=== PATIENT | male | born 1965 | race Caucasian/White ===

== ENCOUNTER 2016-09-07 16:18 | Emergency (ER) | payer MEDICAID ==
[~2016-09-07] VITALS: Ht 185.4 cm; Wt 113.5 kg
[2016-09-07 16:21] VITALS: BP 123/79; PULSE 96; RESP 20; TEMP 97.5; O2SAT 94
[2016-09-07 17:45] LABS: AUTOMATED NEUTROPHIL # 13.1 TH/MM3 (1.8-7.7); BASOPHIL # 0.1 TH/MM3 (0-0.2); BASOPHIL % 0.3 % (0.0-2.0); EOSINOPHIL % 0.1 % (0.0-4.0); HEMO FLAGS DIFF FINAL; LYMPH % 9.9 % (9.0-44.0); LYMPHOCYTE # 1.5 TH/MM3 (1.0-4.8); MEAN CELL VOLUME 87.4 FL (80.0-100.0); MEAN CORPUSCULAR HEMOGLOBIN 30.4 PG (27.0-34.0); MEAN CORPUSCULAR HGB CONC 34.8 % (32.0-36.0); MONO % 5.3 % (0.0-8.0); NEUT % 84.4 % (16.0-70.0); PLATELET COUNT 220 TH/MM3 (150-450); RED BLOOD COUNT 5.37 MIL/MM3 (4.50-5.90); RED CELL DISTRIBUTION WIDTH 13.1 % (11.6-17.2); WHITE BLOOD COUNT 15.6 TH/MM3 (4.0-11.0)
[2016-09-07 17:59] VITALS: BP 151/66; PULSE 81; RESP 18; TEMP 97.8; O2SAT 98
[2016-09-07 18:24] LABS: AMPHETAMINE, URINE NEG (NEG); BARBITURATES, URINE NEG (NEG); COCAINE, URINE POS (NEG)
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
[2016-09-07 18:29] LABS: ANION GAP 9 MEQ/L (5-15); AST (GOT) 30 U/L (15-37); BICARBONATE 30.3 MEQ/L (21.0-32.0); BLOOD UREA NITROGEN 20 MG/DL (7-18); CHLORIDE 101 MEQ/L (98-107); GLOMERULAR FILTRATION RATE 46 ML/MIN (>89); POTASSIUM 4.5 MEQ/L (3.5-5.1); SODIUM (NA) 140 MEQ/L (136-145)
[2016-09-07 18:32] LABS: ALKALINE PHOSPHATASE 96 U/L (45-117); ALT (GPT) 44 U/L (12-78); TOTAL BILIRUBIN ADULT 1.4 MG/DL (0.2-1.0)
[2016-09-07] MEDS ORDERED: SODIUM CHLOR 0.9% 1000 ML INJ 1,000 ML IV SCH (18:45)
--- NOTE | 2016-09-07 18:46 | RADRPT ---
EXAM DATE/TIME: 09/07/2016 18:15 [facility] COMPARISON: No previous studies available for comparison. INDICATIONS : Possible infection of the left lower extremity. MEDICAL HISTORY : None. SURGICAL HISTORY : ORIF Left Tibia ENCOUNTER: Initial ACUITY: 1 day PAIN SCORE: 4/10 LOCATION: Left leg FINDINGS: We have no prior exams. There is a intramedullary ramírez the distal tibia extending across the ankle yoan nt secured to the calcaneus with solid bony fusion of the ankle joint and the distal tibiofibular yoan nt. The proximal tibia is notable for complex bony deformity which has an appearance suggestive of ri ght fracture potentially complicated by infection or other impaired healing process. Multiple surgica l clips and campbell are present. Lobular irregularities of the overlying soft tissue structures may r eflect previous tissue flaps or the reconstructive-type procedures. There is prominent callus adjacen t to the femoral condyles both medially and laterally as well as ossification posteriorly, all likely manifestations of previous injury and dystrophic healing. Resolving to specifically suggest an acute process. I see no periosteal reaction, cortical destruction or acute-appearing fracture. CONCLUSION: No definite acute process. We have no comparison exams. See above discussion. Jake Garza MD on September 07, 2016 at 18:41 Board Certified Radiologist. This report was verified electronically.
[2016-09-07] MEDS ORDERED: CEPH-460 PO (19:18)
[2016-09-07] MEDS ORDERED: BACT800T5 PO (19:18)
[2016-09-07 20:33] VITALS: BP 128/75; PULSE 67; RESP 19; TEMP 99; O2SAT 95
[2016-09-07 21:45] VITALS: BP 115/70; PULSE 63; RESP 18; TEMP 97.6; O2SAT 96
[2016-09-08 03:18] VITALS: BP_SYST 115; BP_SYST 138; BP_DIAS 70; BP_DIAS 84; PULSE 63; PULSE 65; RESP 18; O2SAT 96
[2016-09-08 06:35] VITALS: BP 129/79; PULSE 59; RESP 18; TEMP 97.4; O2SAT 97
[2016-09-08 10:27] VITALS: BP 105/55; PULSE 60; RESP 18; O2SAT 97
[2016-09-08 14:15] VITALS: BP 104/62; PULSE 50; RESP 16; O2SAT 96
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
[2016-09-08 18:20] VITALS: BP 122/73; PULSE 53; RESP 16; O2SAT 96
[2016-09-08 22:18] VITALS: BP 106/59; PULSE 54; RESP 18; O2SAT 99
[2016-09-09 02:30] VITALS: BP 126/80; PULSE 53; RESP 18; O2SAT 97
== END 2016-09-09 04:52 ==
LOC: NEPE 16:18 → NEPJ 09-09 04:52
DX: F43.20 Adjustment disorder, unspecified (principal); F14.10 Cocaine abuse, uncomplicated; R45.851 Suicidal ideations; F39 Unspecified mood [affective] disorder; S89.92XS Unspecified injury of left lower leg, sequela; Z59.0 Homelessness; V09.9XXS Pedestrian injured in unspecified transport accident, sequela
CPT/HCPCS: 73590; 80053; 80307; 85025; 85652; 86140; 96360; 99285; J7030

== ENCOUNTER 2016-10-29 13:36 | Emergency (ER) | payer MEDICAID, OTHER ==
[~2016-10-29 13:36] MED LIST: BACT800T5 PO; CEPH-460 PO
[2016-10-29 13:40] VITALS: BP 133/85; PULSE 104; RESP 16; TEMP 97.9; O2SAT 96
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
--- NOTE | 2016-10-29 14:45 | RADRPT ---
EXAM DATE/TIME: 10/29/2016 14:31 [facility] COMPARISON: TIBIA/FIBULA LEFT (AP/LAT), September 07, 2016, 18:15. INDICATIONS : Patient rolled his ankle this morning. MEDICAL HISTORY : None. SURGICAL HISTORY : Ankle surgery. ENCOUNTER: Initial ACUITY: 1 day PAIN SCORE: 9/10 LOCATION: Left Ankle. FINDINGS: The exam demonstrates previous fusion of the left ankle. The hardware appears intact. No acute fractu re is seen. CONCLUSION: 1. Previous left ankle fusion. Fusion appears solid. There is intramedullary ramírez in place. No acute f racture seen. Grayson Rubin MD on October 29, 2016 at 14:43 Board Certified Radiologist. This report was verified electronically.
[2016-10-29] MEDS ORDERED: IBUP800T23 PO (14:57)
[2016-10-29] MEDS ORDERED: KETOROLAC TROMETHAMINE 60 MG/2 ML (IM) VIAL IM ONE (15:00)
== END 2016-10-29 16:22 | disposition home or self-care (01) ==
LOC: NEPB 13:36
DX: S93.402A Sprain of unspecified ligament of left ankle, initial encounter (principal); X50.1XXA Overexertion from prolonged static or awkward postures, initial encounter
CPT/HCPCS: 73610; 96372; 99283; J1885; L1906

== ENCOUNTER 2016-11-14 09:14 | Emergency (ER) | payer OTHER ==
[~2016-11-14] VITALS: Ht 185.4 cm; Wt 102.0 kg
[~2016-11-14 09:14] MED LIST changes: -BACT800T5 PO; -CEPH-460 PO; +IBUP800T23 PO
[2016-11-14 09:15] VITALS: BP 157/95; PULSE 79; RESP 18; TEMP 98
[2016-11-14] MEDS ORDERED: LIDOCAINE 1%/EPINEPHrine 1:100,000 SOLN 20 ML VIAL INFIL ONE (10:45)
--- NOTE | 2016-11-14 11:09 | PD ---
HPI Chief Complaint: Fall Time Seen by Provider: 10:33 Travel History International Travel<30 days: No Contact w/Intl Traveler<30days: No Traveled to known affect area: No History of Present Illness HPI Patient is a 51-year-old male presents emergency department after fall with laceration. Patient walks with cane at baseline and has frequent falls due to bad leg. Patient states that he had a mechanical fall, falling and hitting his left head. He did not lose consciousness, denies any headache, nausea or vomiting. Patient is not anticoagulated. He was seen at the [facility] and they noted a laceration that may need repair prompting his ER visit. Patient has since been able to ambulate without difficulty. [facility] Past Medical History Cardiovascular Problems: Yes (ivc 2012) Deep Vein Thrombosis: Yes (2012) Implanted Vascular Access Dvce: Yes (filter) Social History Alcohol Use: No (denies) Tobacco Use: Yes Substance Use: Yes (off since ) Allergies-Medications (Allergen,Severity, Reaction): Coded Allergies: No Known Allergies (Unverified , 10/29/16) Reported Meds & Prescriptions Reported Meds & Active Scripts Active Ibuprofen 800 Mg Tab 800 Mg PO Q6HR PRN Review of Systems Except as stated in HPI: all other systems reviewed are Neg Physical Exam Narrative GENERAL: Well-appearing middle-aged male in no acute distress SKIN: Warm and dry. HEAD: Laceration to parietal left scalp. Normocephalic. EYES: Pupils equal and round. No scleral icterus. No injection or drainage. ENT: No nasal bleeding or discharge. Mucous membranes pink and moist. NECK: Supple without midline tenderness to palpation CARDIOVASCULAR: Regular rate and rhythm. RESPIRATORY: No accessory muscle use. GASTROINTESTINAL: Abdomen soft, non-tender, nondistended MUSCULOSKELETAL: Moves all extremities normally. Normal gait with cane NEUROLOGICAL: Awake and alert. No obvious cranial nerve deficits. Motor grossly within normal limits. Normal speech. PSYCHIATRIC: Appropriate mood and affect; insight and judgment normal. Data Data Last Documented VS Vital Signs Date Time Temp Pulse Resp B/P Pulse Ox O2 Delivery O2 Flow Rate FiO2 11/14/16 09:19 98 Room Air 11/14/16 09:15 98.0 79 18 157/95 Orders Lidocai-Epi 1%-1:100,000 Inj (Xylocaine- (11/14/16 10:45) [facility] Medical Decision Making Medical Screen Exam Complete: Yes Emergency Medical Condition: Yes Medical Record Reviewed: Yes Differential Diagnosis 51-year-old male here with fall and laceration. Differential includes mechanical fall, closed head injury, skull fracture, ICH, scalp laceration. Narrative Course Patient had clear mechanical fall by history. Baseline [place] head CT criteria he does not warrant any imaging. Laceration repaired by [facility] [employer], please see procedure note. Patient discharged home. Diagnosis Primary Impression: Scalp laceration Qualified Code: S01.01XA - Scalp laceration, initial encounter Additional Impression: Fall Qualified Code: W19.XXXA - Fall, initial encounter Referrals: Primary Care Physician 1 week Patient Instructions: General Instructions, Laceration (ED) Additional Instructions: Follow-up with primary care provider and/or return to the emergency department in 7-10 days for staple removal. Med/Other Pt SpecificInfo: No Change to Meds Disposition: 01 DISCHARGE HOME Condition: Stable Nika Denny MD Nov 14, 2016 11:09
--- NOTE | 2016-11-14 11:21 | PD ---
Physical Exam Time Seen by Provider: 11:19 Narrative I repaired the laceration to the parietal left scalp. Data Data Last Documented VS Vital Signs Date Time Temp Pulse Resp B/P Pulse Ox O2 Delivery O2 Flow Rate FiO2 11/14/16 09:19 98 Room Air 11/14/16 09:15 98.0 79 18 157/95 Orders Lidocai-Epi 1%-1:100,000 Inj (Xylocaine- (11/14/16 10:45) MDM Supervised Visit with CHRISTIANA: Yes Narrative Course I repaired the laceration to the parietal left scalp. See my procedure note for laceration repair. Procedures Procedure Narrative LACERATION LOCATION: Parietal Left scalp LENGTH: 2.5 cm NUMBER OF STITCHES/CAMPBELL: 4 campbell REPAIR: The area of the laceration was prepped with Betadine and sterilely draped. The laceration was infiltrated with 1% lidocaine with epinephrine. The wound was copiously irrigated and explored without evidence of foreign body, tendon injury or neurovascular injury. The wound was closed using campbell. This was a single layer repair. A sterile dressing was applied. The patient was advised to keep the dressing clean and dry. Patient tolerated the procedure well. Diagnosis Primary Impression: Scalp laceration Qualified Code: S01.01XA - Scalp laceration, initial encounter Additional Impression: Fall Qualified Code: W19.XXXA - Fall, initial encounter Referrals: Primary Care Physician 1 week Patient Instructions: General Instructions, Laceration (ED) Additional Instruction: Follow-up with primary care provider and/or return to the emergency department in 7-10 days for staple removal. Disposition: 01 DISCHARGE HOME Condition: Stable Niki Godinez Nov 14, 2016 11:21
[2016-11-14 11:47] VITALS: BP 155/89
== END 2016-11-14 12:01 | disposition home or self-care (01) ==
LOC: NEPE 09:14
DX: S01.01XA Laceration without foreign body of scalp, initial encounter (principal); W19.XXXA Unspecified fall, initial encounter; Z72.0 Tobacco use
CPT/HCPCS: 12001

== ENCOUNTER 2017-04-13 08:33 | Inpatient (IN) | payer MEDICAID, OTHER ==
[~2017-04-13] VITALS: Ht 185.4 cm; Wt 103.3 kg
[2017-04-13 08:34] VITALS: BP 139/80; PULSE 86; RESP 18; TEMP 97.7; O2SAT 99
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
[2017-04-13 10:01] LABS: BASOPHIL # 0.1 TH/MM3 (0-0.2); BASOPHIL % 0.7 % (0.0-2.0); EOSINOPHIL # 0.1 TH/MM3 (0-0.4); EOSINOPHIL % 1.5 % (0.0-4.0); HEMATOCRIT 39.2 % (39.0-51.0); HEMO FLAGS DIFF FINAL; LYMPH % 21.6 % (9.0-44.0); LYMPHOCYTE # 1.6 TH/MM3 (1.0-4.8); MEAN CELL VOLUME 91.3 FL (80.0-100.0); MEAN CORPUSCULAR HEMOGLOBIN 31.6 PG (27.0-34.0); MEAN CORPUSCULAR HGB CONC 34.6 % (32.0-36.0); MONO % 9.6 % (0.0-8.0); NEUT % 66.6 % (16.0-70.0); PLATELET COUNT 252 TH/MM3 (150-450); RED CELL DISTRIBUTION WIDTH 13.1 % (11.6-17.2); WHITE BLOOD COUNT 7.5 TH/MM3 (4.0-11.0)
[2017-04-13 10:23] LABS: BICARBONATE 28.6 MEQ/L (21.0-32.0); POTASSIUM 4.3 MEQ/L (3.5-5.1)
--- NOTE | 2017-04-13 10:29 | RADRPT ---
EXAM DATE/TIME: 04/13/2017 10:02 [facility] COMPARISON: TIBIA/FIBULA LEFT (AP/LAT), September 07, 2016, 18:15. INDICATIONS : Left leg pain. Evaluate for osteomyelitis. MEDICAL HISTORY : None. SURGICAL HISTORY : Multiple leg surgeries with ramírez placment. ENCOUNTER: Initial ACUITY: 1 month PAIN SCORE: 9/10 LOCATION: Left leg FINDINGS: 4 views of the left lower leg reveal significant prior trauma to the proximal and distal tibia as wel l as the distal fibula. There is an intramedullary ramírez traversing the tibiotalar joint with 3 distal and 2 proximal anchoring screws. Pronounced myositis ossificans about all fracture sites particularly proximally. No acute fracture is observed. No discrete cortical destruction to suggest osteomyelitis . Multiple surgical clips. CONCLUSION: Pronounced prior trauma with fusion of the tibiotalar and subtalar joints. No plain radiographic evid ence to clearly suggest osteomyelitis. Bull Pang Jr., MD on April 13, 2017 at 10:22 Board Certified Radiologist. This report was verified electronically.
[2017-04-13] MEDS ORDERED: MORPHINE SULFATE 8 MG/ML INJ IV PUSH ONE (11:30)
[2017-04-13 11:58] VITALS: BP 148/79; PULSE 69; RESP 18; O2SAT 99
[2017-04-13] MEDS ORDERED: SENNOSIDES 8.6 MG TAB PO PRN ×2 (13:15→13:45)
[2017-04-13] MEDS ORDERED: BISACODYL 10 MG SUPP RECTAL PRN ×2 (13:15→13:45)
[2017-04-13] MEDS ORDERED: LACTULOSE SYRUP 20 GM/30 ML CUP PO PRN ×2 (13:15→13:45)
[2017-04-13] MEDS ORDERED: NALOXONE HCL 0.4 MG/ML AMP IV PRN ×2 (13:15→13:45)
[2017-04-13] MEDS ORDERED: ONDANSETRON HCL 4 MG/2 ML VIAL IVP PRN ×2 (13:15→13:45)
[2017-04-13] MEDS ORDERED: MORPHINE SULFATE 4 MG/ML INJ IV PUSH PRN (13:15)
[2017-04-13] MEDS ORDERED: MAGNESIUM HYDROXIDE SUSP 30 ML CUP PO PRN ×2 (13:15→13:45)
[2017-04-13] MEDS ORDERED: ACETAMINOPHEN 325 MG TAB PO PRN ×3 (13:15→13:45)
[2017-04-13] MEDS ORDERED: SODIUM CHLORIDE 0.9% FLUSH 10 ML FLUSH IV FLUSH PRN ×2 (13:15→13:45)
[2017-04-13] MEDS ORDERED: ACETAMINOPHEN/HYDROcodone 325 MG/10 MG TAB PO PRN (13:15)
[2017-04-13] MEDS: SODIUM CHLOR 0.9% 1000 ML INJ 1,000 ML IV SCH (13:33)
[2017-04-13] MEDS ORDERED: SODIUM CHLOR 0.9% 1000 ML INJ 1,000 ML IV SCH (13:38)
[2017-04-13] MEDS ORDERED: oxyCODONE/ACETAMINOPHEN 5 MG/325 MG TAB PO PRN (13:45)
[2017-04-13] MEDS ORDERED: MORPHINE SULFATE 4 MG/ML INJ IV PRN (13:45)
[2017-04-13] MEDS ORDERED: TEMAZEPAM 15 MG CAP PO PRN (13:45)
[2017-04-13] MEDS ORDERED: PROCHLORPERAZINE 25 MG SUPP RECTAL PRN (13:45)
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
[2017-04-13 15:45] VITALS: BP 148/101; PULSE 78; RESP 28; O2SAT 100
[2017-04-13] MEDS ORDERED: GADODIAMIDE PF 287 MG/ML 5 ML VIAL (for RAD MRI) IV ONE (15:48)
--- NOTE | 2017-04-13 15:55 | RADRPT ---
EXAM DATE/TIME: 04/13/2017 14:17 [facility] COMPARISON: TIBIA/FIBULA LEFT (AP/LAT), April 13, 2017, 10:02. INDICATIONS : Osteomyelitis. CONTRAST: 10 cc Omniscan (gadodiamide) IV MEDICAL HISTORY : Hypertension. Deep vein thrombosis SURGICAL HISTORY : IVC Filter placement. Left lower leg surgeries ENCOUNTER: Initial ACUITY: 1 month PAIN SCORE: 6/10 LOCATION: Left lower leg TECHNIQUE: Multiplanar multisequence MRI examination of the lower leg was performed with and without contrast. FINDINGS: There is extensive artifact from campbell and hardware. I do not see an obvious abscess. I do not se e significant murmur placement. There is no abnormal contrast enhancement. CONCLUSION: Extensive artifact as described above. Tagged white cell study could be used since t he last myelitis if strong clinical concern. Evan Rubin MD FACR on April 13, 2017 at 15:52 Board Certified Radiologist. This report was verified electronically.
[2017-04-13 17:02] LABS: BLOOD, URINE NEG (NEG); GLUCOSE,URINE NEG (NEG); KETONE, URINE NEG (NEG); NITRITE,URINE NEG (NEG); PH, URINE 6.5 (5.0-8.5); URINE COLOR LIGHT-YELLOW (YELLW/STRAW)
[2017-04-13 17:05] LABS: COMMENT (UR) CULT NOT INDICATED; CULTURE IF INDICATED CULT NOT INDICATED
[2017-04-13] MEDS: oxyCODONE/ACETAMINOPHEN 10 MG/325 MG TAB PO PRN (20:54)
[2017-04-13] MEDS: SODIUM CHLORIDE 0.9% FLUSH 10 ML FLUSH IV FLUSH SCH (20:55)
[2017-04-13] MEDS: DOCUSATE SODIUM 50 MG/SENNA 8.6 MG TAB PO SCH (20:55)
[2017-04-13] MEDS ORDERED: DOCUSATE SODIUM 50 MG/SENNA 8.6 MG TAB PO SCH (21:00)
[2017-04-13] MEDS ORDERED: SODIUM CHLORIDE 0.9% FLUSH 10 ML FLUSH IV FLUSH SCH (21:00)
[2017-04-13 21:45] LABS: HEMOGLOBIN A1a 1.1 %; HEMOGLOBIN A1b 1.8 %; HEMOGLOBIN Ao 84.6 %; HEMOGLOBIN P3 4.1 %
[2017-04-13 21:52] VITALS: BP 125/61; PULSE 81; RESP 16; TEMP 98.5; O2SAT 98
[2017-04-13 22:49] LABS: PROTHROMBIN TIME - PATIENT 10.6 SEC (9.8-11.6)
[2017-04-13 23:40] VITALS: BP 93/52; PULSE 67; RESP 16; TEMP 98.3; O2SAT 96
[2017-04-14] VITALS (7 sets, daily range): BP systolic 96–125; BP diastolic 53–76; PULSE 70–99; RESP 16–20; TEMP 97.7–99.9; O2SAT 94–99
[2017-04-14] MEDS: SODIUM CHLOR 0.9% 1000 ML INJ 1,000 ML IV SCH ×3 (00:19→21:17)
[2017-04-14] MEDS: oxyCODONE/ACETAMINOPHEN 10 MG/325 MG TAB PO PRN ×4 (03:07→23:13)
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
[2017-04-14 08:49] LABS: ANION GAP 4 MEQ/L (5-15); AST (GOT) 17 U/L (15-37); BICARBONATE 30.6 MEQ/L (21.0-32.0); BLOOD UREA NITROGEN 11 MG/DL (7-18); CHLORIDE 103 MEQ/L (98-107); GLOMERULAR FILTRATION RATE 76 ML/MIN (>89); MAGNESIUM 2.2 MG/DL (1.5-2.5); SODIUM (NA) 138 MEQ/L (136-145)
[2017-04-14 08:51] LABS: BASOPHIL # 0.1 TH/MM3 (0-0.2); BASOPHIL % 0.9 % (0.0-2.0); EOSINOPHIL # 0.2 TH/MM3 (0-0.4); EOSINOPHIL % 2.1 % (0.0-4.0); HEMATOCRIT 40.7 % (39.0-51.0); LYMPH % 18.4 % (9.0-44.0); LYMPHOCYTE # 1.6 TH/MM3 (1.0-4.8); MEAN CELL VOLUME 91.7 FL (80.0-100.0); MEAN CORPUSCULAR HEMOGLOBIN 30.7 PG (27.0-34.0); MEAN CORPUSCULAR HGB CONC 33.4 % (32.0-36.0); NEUT % 70.6 % (16.0-70.0); PLATELET COUNT 250 TH/MM3 (150-450); RED BLOOD COUNT 4.43 MIL/MM3 (4.50-5.90); RED CELL DISTRIBUTION WIDTH 13.1 % (11.6-17.2); WHITE BLOOD COUNT 8.4 TH/MM3 (4.0-11.0)
[2017-04-14 08:56] LABS: ALKALINE PHOSPHATASE 76 U/L (45-117); ALT (GPT) 16 U/L (12-78); TOTAL BILIRUBIN ADULT 0.4 MG/DL (0.2-1.0)
[2017-04-14] MEDS: DOCUSATE SODIUM 50 MG/SENNA 8.6 MG TAB PO SCH ×3 (09:00→21:22)
[2017-04-14] MEDS: SODIUM CHLORIDE 0.9% FLUSH 10 ML FLUSH IV FLUSH SCH ×2 (09:00→21:00)
[2017-04-14 09:23] LABS: HEMO FLAGS AUTO DIFF
[2017-04-14 09:26] LABS: BANDS 12 % (0-6); EOSINOPHILS 1 % (0-4); POLYS (SEG NEUTROPHILS) 71 % (16-70); WBC DIFF SAMPLE 100
[2017-04-14 09:27] LABS: PLATELET ESTIMATE SMEAR NORMAL (NORMAL); PLATELET MORPHOLOGY NORMAL (NORMAL); SCAN/DIFF FINAL DIFF MANUAL
[2017-04-14] MEDS: MORPHINE SULFATE 4 MG/ML INJ IV PRN ×3 (09:35→21:15)
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
[2017-04-14] MEDS ORDERED: VANCOMYCIN INJ 1,000 MG in SODIUM CHLOR 0.9% 250 ML INJ 250 ML IV ONE (09:45)
[2017-04-14] MEDS ORDERED: Vancomycin Consult Pharmacy 1 EA OTHER SCH (09:45)
[2017-04-14 10:51] LABS: HEMOGLOBIN A1a 1.1 %; HEMOGLOBIN A1b 1.7 %; HEMOGLOBIN Ao 85.3 %; HEMOGLOBIN LA1C 1.9 %; HEMOGLOBIN P3 3.7 %
[2017-04-14] MEDS: CIPROFLOXACIN 750 MG TAB PO SCH ×2 (11:00→23:13)
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
[2017-04-14] MEDS: VANCOMYCIN INJ 1,500 MG in SODIUM CHLORID 0.9% 500 ML INJ 500 ML IV SCH ×2 (14:39→23:13)
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
[2017-04-15] VITALS (7 sets, daily range): BP systolic 105–123; BP diastolic 64–77; PULSE 65–93; RESP 16–18; TEMP 97.8–98.9; O2SAT 95–99
[2017-04-15] MEDS: MORPHINE SULFATE 4 MG/ML INJ IV PRN (02:28)
[2017-04-15] MEDS: SODIUM CHLOR 0.9% 1000 ML INJ 1,000 ML IV SCH ×3 (04:19→23:25)
[2017-04-15] MEDS: oxyCODONE/ACETAMINOPHEN 10 MG/325 MG TAB PO PRN ×5 (04:19→23:25)
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
[2017-04-15] MEDS: DOCUSATE SODIUM 50 MG/SENNA 8.6 MG TAB PO SCH ×2 (08:51→21:00)
[2017-04-15] MEDS: SODIUM CHLORIDE 0.9% FLUSH 10 ML FLUSH IV FLUSH SCH ×2 (09:00→22:51)
[2017-04-15] MEDS: CIPROFLOXACIN 750 MG TAB PO SCH ×2 (12:04→23:25)
[2017-04-15] MEDS: VANCOMYCIN INJ 1,500 MG in SODIUM CHLORID 0.9% 500 ML INJ 500 ML IV SCH ×2 (12:04→23:25)
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
[2017-04-16] VITALS (7 sets, daily range): BP systolic 124–156; BP diastolic 73–84; PULSE 58–83; RESP 16–18; TEMP 97.3–98.3; O2SAT 96–99
[2017-04-16] MEDS: oxyCODONE/ACETAMINOPHEN 10 MG/325 MG TAB PO PRN ×4 (03:24→21:54)
[2017-04-16] MEDS: DOCUSATE SODIUM 50 MG/SENNA 8.6 MG TAB PO SCH ×2 (07:55→21:54)
[2017-04-16] MEDS: SODIUM CHLORIDE 0.9% FLUSH 10 ML FLUSH IV FLUSH SCH ×2 (07:56→21:00)
--- NOTE | 2017-04-16 10:53 | HHI.PR ---
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 Patient is doing well. No fever, chills. However, left leg wound has multiple draining ulceration. Waiting for WBC tagged scan. Objective Vitals Vital Signs Date Time Temp Pulse Resp B/P Pulse Ox O2 Delivery O2 Flow Rate FiO2 04/16/17 05:20 98.3 69 16 136/73 98 04/15/17 23:52 97.8 71 16 123/69 99 04/15/17 22:04 97 04/15/17 21:35 98.0 73 16 121/67 97 04/15/17 20:45 Room Air 04/15/17 17:00 98.3 68 18 119/72 98 04/15/17 12:00 98.2 65 18 105/64 97 I/O 04/15/17 04/15/17 04/15/17 04/16/17 04/16/17 04/16/17 06:59 14:59 22:59 06:59 14:59 22:59 Intake Total 1630 ml 720 ml 1149 ml 1221 ml Output Total 600 ml 350 ml 200 ml 1200 ml Balance 1030 ml 370 ml 949 ml 21 ml Intake Oral 480 ml 720 ml 720 ml 240 ml IV Total 1150 ml 429 ml 981 ml Output Urine Total 600 ml 350 ml 200 ml 1200 ml # Bowel Movements 0 0 0 Result Diagram: 04/14/17 0723 04/16/17 0654 Imaging Last Impressions Tibia/Fibula X-Ray 04/13/17 0000 Signed Impressions: Service Date/Time: Thursday, April 13, 2017 10:02 - CONCLUSION: Pronounced prior trauma with fusion of the tibiotalar and subtalar joints. No plain radiographic evidence to clearly suggest osteomyelitis. Bull Pang Jr., MD Lower Extremity MRI 04/13/17 0000 Signed Impressions: Service Date/Time: Thursday, April 13, 2017 14:17 - CONCLUSION: Extensive artifact as described above. Tagged white cell study could be used since the last myelitis if strong clinical concern. Evan Rubin MD FACR Objective Remarks GENERAL: AOx3, NAD. SKIN: Warm and dry. HEAD: Normocephalic. EYES: No scleral icterus. No injection or drainage. NECK: Supple, trachea midline. No JVD or lymphadenopathy. CARDIOVASCULAR: Regular rate and rhythm without murmurs, gallops, or rubs. RESPIRATORY: Breath sounds equal bilaterally. No accessory muscle use. GASTROINTESTINAL: Abdomen soft, non-tender, nondistended. MUSCULOSKELETAL: No cyanosis. Left leg s/p reconstructive surgeries, edema 2+, multiple draining ulcerations, diffuse erythema. BACK: Nontender without obvious deformity. No CVA tenderness. Procedures None. A/P Assessment and Plan 51yo male who has a history of traumatic injury to the left lower extremity in 2012 with hardware implantation and multiple reconstructive surgeries who presents to [facility] ED with complaints of 2-3 week history of increased swelling, redness, pain and purulent drainage of the left leg. - Left lower extremity cellulitis - Probable chronic osteomyelitis - History of traumatic injury, s/p hardware placement, reconstructive surgery. - ESR 39, CRP 4.01. MRI not indicative of osteomyelitis. - Orthopedic surgery, ID following. Currently on Cipro PO and Vancomycin IV. - Follow C&S. Wound cx --> Proteus Mirabilis, GNR, staph aureus. - Continue Percocet PRN, Morphine PRN. - WBC tagged nuclear scan pending. - Will consult wound care. - Pre-diabetes - Hemoglobin A1C 5.8, 5.9. Likely would benefit from Metformin which we can start on discharge. - Mild NICOLAS - Creatinine 1.19 --> 1.02. - Ongoing tobaccoism - discussed at the time of admission regarding smoking cessation/counseling Full code. SCDs. Eve Angela DO Apr 16, 2017 10:52
[2017-04-16] MEDS: SODIUM CHLOR 0.9% 1000 ML INJ 1,000 ML IV SCH ×2 (11:09→21:09)
[2017-04-16] MEDS ORDERED: PHARMACY ORDERED LAB ONE (11:45)
--- NOTE | 2017-04-16 12:01 | RADRPT ---
EXAM DATE/TIME: 04/15/2017 12:57 [place] COMPARISON: No previous studies available for comparison. INDICATIONS : Left lower leg abscess. Trauma in 2012. DOSE: 19.3 mCi Tc99m Ceretec labeled white blood cells IV SPECT IMAGIN hrs, 20 hrs IMAGNG: SPECT/CT imaging with fusion was performed. RADIATION DOSE: 5.52 CTDIvol (mGy) MEDICAL HISTORY : Deep venous thrombosis. Hypertension. Smoker. SURGICAL HISTORY : Left leg. ENCOUNTER: Initial ACUITY: >1 yr PAIN SCALE: 3/10 LOCATION: Left Leg. TECHNIQUE: Following the in vitro labeling of autologous white cells and reinjection, whole body scan was perfor med at the specified times. SPECT imaging was performed at the specified time in sagittal, axial and coronal planes. Attenuation correction was performed with the computed tomography and both the atten uation correction and non-attenuation corrected data sets were reviewed. FINDINGS: The examination demonstrates multiple foci of abnormal tracer accumulation in the soft tissues of the left leg. The most concerning abnormality is seen along the anterior aspect of the garcia. This is jordyn roximately 10 cm below the level of the knee joint and seen anteriorly. This abuts the periosteal dominic face of the left tibia. I do not see definite uptake within the tibial cortex itself. There are other scattered areas of soft tissue uptake seen along the skin surface medially and latera lly. CONCLUSION: 1. Large area of abnormal uptake seen along the anterior surface of the left leg. This abuts the kike osteum of the left tibia. I do not see definite osseous uptake within the tibia itself. Grayson Rubin MD on April 16, 2017 at 11:54 Board Certified Radiologist. This report was verified electronically.
[2017-04-16] MEDS: CIPROFLOXACIN 750 MG TAB PO SCH ×2 (12:03→21:54)
--- NOTE | 2017-04-16 14:01 | HHI.IDPN ---
Subjective Subjective Remarks Patient is a 51-year-old male, presented to the hospital for further evaluation of his left lower extremity wounds associated with swelling redness and pain. Patient apparently had an accident back in 2012, and he sustained significant injury to his left lower extremity. He had multiple orthopedic surgeries as well as reconstructive surgery to his left lower extremity. The last surgery was done back in May 2013. He was treated for an infection in that left lower extremity at some point during that time. Since then he apparently has had some on and off problem with some wounds developing on his left leg. More recently over the last 3 weeks she developed a wound on his left leg. He went to him for the hospital in [facility], and he was given 5 days of antibiotics that he got for free at [facility] [place]. He just washes his wants, but does not maintain any coverage. His wounds were not healing, and he continued to have problem with worsening swelling and pain and redness, so he presented to the hospital for further evaluation and treatment. He denies any fever or chills or sweats. He has not had any other symptoms as far as GI or any urinary complaint. Studies have been done here and there was no obvious radiographic evidence of osteomyelitis. He is afebrile. His sedimentation rate and C-reactive protein are elevated. WBC is normal. Patient is homeless. Infectious disease consultation has been requested to evaluate the patient. Notes reviewed Temps ok NO new complaint Tagged WBC negative for osteo Wound C/S mixed bacteria BC negative Antibiotics Vancomycin Cipro Past Medical History history of traumatic injury to the left lower extremity in 2012 with hardware implantation and multiple reconstructive surgeries H/O LLE DVT and PEs H/O MRSA Prediabetes History of suicidal thoughts Tobacco abuse Homelessness Past Surgical History Tonsillectomy h/o traumatic injury to the LLE s/p hardware implantation and multiple reconstructive surgeries Allergies: Coded Allergies: No Known Allergies (Unverified , 10/29/16) Objective . Vital Signs Date Time Temp Pulse Resp B/P Pulse Ox O2 Delivery O2 Flow Rate FiO2 04/16/17 05:20 98.3 69 16 136/73 98 04/15/17 23:52 97.8 71 16 123/69 99 04/15/17 22:04 97 04/15/17 21:35 98.0 73 16 121/67 97 04/15/17 20:45 Room Air 04/15/17 17:00 98.3 68 18 119/72 98 04/15/17 04/15/17 04/16/17 14:59 22:59 06:59 Intake Total 720 ml 1149 ml 1221 ml Output Total 350 ml 200 ml 1200 ml Balance 370 ml 949 ml 21 ml Intake Oral 720 ml 720 ml 240 ml IV Total 429 ml 981 ml Output Urine Total 350 ml 200 ml 1200 ml # Bowel Movements 0 0 . Laboratory Tests Test 04/16/17 06:54 Creatinine 1.02 MG/DL Estimat Glomerular Filtration 76 ML/MIN Rate Imaging Last Impressions Tumor Localization 04/15/17 0000 Signed Impressions: Service Date/Time: Saturday, April 15, 2017 12:57 - CONCLUSION: 1. Large area of abnormal uptake seen along the anterior surface of the left leg. This abuts the periosteum of the left tibia. I do not see definite osseous uptake within the tibia itself. Grayson Rubin MD Tibia/Fibula X-Ray 04/13/17 0000 Signed Impressions: Service Date/Time: Thursday, April 13, 2017 10:02 - CONCLUSION: Pronounced prior trauma with fusion of the tibiotalar and subtalar joints. No plain radiographic evidence to clearly suggest osteomyelitis. Bull Pang Jr., MD Lower Extremity MRI 04/13/17 0000 Signed Impressions: Service Date/Time: Thursday, April 13, 2017 14:17 - CONCLUSION: Extensive artifact as described above. Tagged white cell study could be used since the last myelitis if strong clinical concern. Evan Rubin MD FACR Physical Exam GENERAL: awake and alert, not in respiratory distress. SKIN: Warm and dry. No generalized rash, no ecchymoses and no evidence of embolic lesions. HEAD: Atraumatic. Normocephalic. No temporal wasting, or tenderness. EYES: [place] conjunctiva. No petechia or hemorrhage. No scleral icterus. No injection or drainage. EARS, NOSE AND THROAT: Nose without bleeding or purulent nasal discharge. Mucous membranes pink and moist. Poor dentition NECK: Trachea midline. Supple and not tender, no meningeal signs CARDIOVASCULAR: Regular rate and rhythm. No murmurs, rubs or gallops heard RESPIRATORY: Clear to auscultation. Breath sounds equal bilaterally. No rales , wheezing or rhonchi ABDOMEN: Soft, non-tender, nondistended. Bowel sounds present and normoactive. No guarding. No rebound. No organomegaly. EXTREMITIES: No clubbing, cyanosis. No calf tenderness. Well perfused and warm. His LLE is larger compared to his RLE. He has evidence of prior reconstructive surgeries, with muscle flaps. he has several open wounds with some yellow drainage and his L leg/ankle has erythema. NO odor. There are some pustules in his ankle area. The ankle is swollen. NEUROLOGICAL: Awake and alert. Cranial nerves grossly intact. Motor grossly within normal limits. PSYCHIATRIC: Normal affect, calm and cooperative. LINE: No evidence of infection Assessment & Plan Remarks IMPRESSION Cellulitis LLE with some open wounds - C/S polymicrobial Previous reconstructive surgeries ot his LLE, has hardwate in place - no bony destruction seen on imaging studies - tagged WBC scan negative No S/Sxs of sepsis RECOMMENDATION Wound care Continue Kandy and Silviano Orellana has evaluated patient and recommended amputation which patient is not interested at this time Monitor wounds Will make final recommendations once C/S available Marissa Jorge MD Apr 16, 2017 14:01
[2017-04-16] MEDS: VANCOMYCIN INJ 1,500 MG in SODIUM CHLORID 0.9% 500 ML INJ 500 ML IV SCH (21:54)
[2017-04-17] VITALS (7 sets, daily range): BP systolic 125–148; BP diastolic 64–94; PULSE 55–66; RESP 16–18; TEMP 97.4–98.1; O2SAT 95–98
[2017-04-17] MEDS: oxyCODONE/ACETAMINOPHEN 10 MG/325 MG TAB PO PRN ×5 (02:51→21:21)
[2017-04-17] MEDS: SODIUM CHLOR 0.9% 1000 ML INJ 1,000 ML IV SCH ×2 (06:42→17:09)
[2017-04-17] MEDS: DOCUSATE SODIUM 50 MG/SENNA 8.6 MG TAB PO SCH ×2 (07:49→21:21)
[2017-04-17] MEDS: SODIUM CHLORIDE 0.9% FLUSH 10 ML FLUSH IV FLUSH SCH ×2 (09:00→21:00)
[2017-04-17] MEDS: CIPROFLOXACIN 750 MG TAB PO SCH ×2 (11:41→21:21)
--- NOTE | 2017-04-17 12:47 | HHI.PR ---
Subjective Remarks Follow up for left lower ext cellulitis suspicious for chronic osteomyelitis. Patient is currently doing well. No fever or chills. Objective Vitals Vital Signs Date Time Temp Pulse Resp B/P Pulse Ox O2 Delivery O2 Flow Rate FiO2 04/17/17 11:36 97 21 04/17/17 08:00 97.8 60 18 125/77 97 04/17/17 04:00 97.5 55 16 135/76 95 04/17/17 00:00 98.1 65 16 138/64 97 04/16/17 20:30 Room Air 04/16/17 20:00 98.1 68 18 148/84 99 04/16/17 16:00 97.3 58 16 138/77 99 04/16/17 14:32 97 I/O 04/16/17 04/16/17 04/16/17 04/17/17 04/17/17 04/17/17 06:59 14:59 22:59 06:59 14:59 22:59 Intake Total 1221 ml 840 ml 1858 ml 1519 ml Output Total 1200 ml 1080 ml 2300 ml 1900 ml Balance 21 ml -240 ml -442 ml -381 ml Intake Oral 240 ml 840 ml 480 ml 480 ml IV Total 981 ml 1378 ml 1039 ml Output Urine Total 1200 ml 1080 ml 2300 ml 1900 ml # Bowel Movements 0 0 0 0 Result Diagram: 04/14/17 0723 04/16/17 0654 Imaging Last Impressions Tumor Localization 04/15/17 0000 Signed Impressions: Service Date/Time: Saturday, April 15, 2017 12:57 - CONCLUSION: 1. Large area of abnormal uptake seen along the anterior surface of the left leg. This abuts the periosteum of the left tibia. I do not see definite osseous uptake within the tibia itself. Grayson Rubin MD Tibia/Fibula X-Ray 04/13/17 0000 Signed Impressions: Service Date/Time: Thursday, April 13, 2017 10:02 - CONCLUSION: Pronounced prior trauma with fusion of the tibiotalar and subtalar joints. No plain radiographic evidence to clearly suggest osteomyelitis. Bull Pang Jr., MD Lower Extremity MRI 04/13/17 0000 Signed Impressions: Service Date/Time: Thursday, April 13, 2017 14:17 - CONCLUSION: Extensive artifact as described above. Tagged white cell study could be used since the last myelitis if strong clinical concern. Evan Rubin MD FACR Objective Remarks GENERAL: AOx3, NAD. SKIN: Warm and dry. HEAD: Normocephalic. EYES: No scleral icterus. No injection or drainage. NECK: Supple, trachea midline. No JVD or lymphadenopathy. CARDIOVASCULAR: Regular rate and rhythm without murmurs, gallops, or rubs. RESPIRATORY: Breath sounds equal bilaterally. No accessory muscle use. GASTROINTESTINAL: Abdomen soft, non-tender, nondistended. MUSCULOSKELETAL: No cyanosis. Left leg s/p reconstructive surgeries, edema 2+, multiple draining ulcerations, diffuse erythema. Somewhat improved today. BACK: Nontender without obvious deformity. No CVA tenderness. Procedures None. A/P Problem List: (1) Homeless ICD Code: Z59.0 Status: Acute (2) History of pulmonary embolism ICD Code: Z86.711 Status: Acute (3) History of DVT (deep vein thrombosis) ICD Code: Z86.718 Status: Acute (4) Tobacco abuse ICD Code: Z72.0 Status: Acute (5) Failure of outpatient treatment ICD Code: Z78.9 Status: Acute (6) Abscess of leg ICD Code: L02.419 Status: Acute Assessment and Plan 51yo male who has a history of traumatic injury to the left lower extremity in 2012 with hardware implantation and multiple reconstructive surgeries who presents to [facility] ED with complaints of 2-3 week history of increased swelling, redness, pain and purulent drainage of the left leg. - Left lower extremity cellulitis - Probable chronic osteomyelitis - History of traumatic injury, s/p hardware placement, reconstructive surgery. - ESR 39, CRP 4.01. MRI not indicative of osteomyelitis. - Orthopedic surgery, ID following. Currently on Cipro PO and Vancomycin IV. - Follow C&S. Wound cx --> Proteus Mirabilis, GNR, staph aureus. - Continue Percocet PRN, Morphine PRN. - WBC tagged nuclear shows no evidence of osteomyelitis. - Will consult wound care. - If orthopedic surgery clears for discharge, patient can likely be discharged on oral antibiotics. - Pre-diabetes - Hemoglobin A1C 5.8, 5.9. Likely would benefit from Metformin which we can start on discharge. - Mild NICOLAS - Creatinine 1.19 --> 1.02. - Ongoing tobaccoism - discussed at the time of admission regarding smoking cessation/counseling Full code. SCDs. Eve Angela DO Apr 17, 2017 12:46 pm
[2017-04-17] MEDS: VANCOMYCIN INJ 1,500 MG in SODIUM CHLORID 0.9% 500 ML INJ 500 ML IV SCH (14:55)
--- NOTE | 2017-04-17 18:39 | PD.WCN.NOT ---
Wound Consult Description: Wound care consult for left leg Communicated with: PATRICIA [address] Recommendation: Pack left medial knee wound with Iodoform every other day after cleansing with Normal Saline and PRN for saturation or dislodgement. Cleanse left lower extremity wounds with wound cleanser every 3 days, next on morning of 04/21/17 (patient seen late today) and reapply Optifoam Gentle AG to all open wounds on anterior left leg and lateral left ankle. Additional Information: Patient seen on [address] [place] [address] for left leg wounds. Left medial knee wound in the crease of muscle flap measures 0.4cm x 1.6cm x 1.9cm with yellow exudate and sanguinous scant drainage that was cleansed with NS and packed with Iodoform and covered with 4x4 gauze and tape that is recommended to be changed every other day and PRN for saturation or dislodgement. Left anterior garcia wound measures 6cm x 4.4cm x 0.2cm and is red non granulating tissue with yellow exudate noted when cleansed with NS and gauze with dried exudate noted to wound margins that was not friable when cleansed. There are multiple wounds noted to left lateral malleolus in various stages, there are yellow filled pockets of fluctuance and punched out partial thickness skinloss lesions all very painful to touch with shiny tight skin indicating an arterial etiology. Wounds were cleansed with NS and gauze with patient jumping/withdrawing from pain with every attempt. All wounds are lower extremity were covered with Optifoam Gentle AG and secured with rolled gauze that may remain in place for 3 days starting as patient was seen late today. Marisol Talbot [facility] Apr 17, 2017 18:39
[2017-04-18 00:50] VITALS: BP 138/87; PULSE 65; RESP 16; TEMP 97.7; O2SAT 99
[2017-04-18 03:45] VITALS: BP 160/94; PULSE 67; RESP 16; TEMP 97.3; O2SAT 97
[2017-04-18] MEDS: oxyCODONE/ACETAMINOPHEN 10 MG/325 MG TAB PO PRN (03:47)
[2017-04-18] MEDS: SODIUM CHLOR 0.9% 1000 ML INJ 1,000 ML IV SCH (03:47)
[2017-04-18 08:00] VITALS: BP 133/62; PULSE 61; RESP 20; TEMP 97.7; O2SAT 98
[2017-04-18] MEDS: VANCOMYCIN INJ 1,500 MG in SODIUM CHLORID 0.9% 500 ML INJ 500 ML IV SCH (09:30)
[2017-04-18] MEDS: SODIUM CHLORIDE 0.9% FLUSH 10 ML FLUSH IV FLUSH SCH (09:30)
[2017-04-18] MEDS: DOCUSATE SODIUM 50 MG/SENNA 8.6 MG TAB PO SCH (09:31)
[2017-04-18] MEDS ORDERED: PERC7.5T13 PO (11:12)
[2017-04-18] MEDS ORDERED: LEVO750T3 PO (11:12)
--- NOTE | 2017-04-18 11:14 | HHI.DS ---
Discharge Summary Admission Date Apr 13, 2017 at 1:51 pm Discharge Date: Apr 18, 2017 Admitting Diagnosis Cellulitis and infected left lower extremity status post surgery with with failed outpatient therapy (1) Homeless ICD Code: Z59.0 - Homelessness (2) History of pulmonary embolism ICD Code: Z86.711 - Personal history of pulmonary embolism (3) History of DVT (deep vein thrombosis) ICD Code: Z86.718 - Personal history of other venous thrombosis and embolism (4) Tobacco abuse ICD Code: Z72.0 - Tobacco use (5) Failure of outpatient treatment ICD Code: Z78.9 - Other specified health status (6) Abscess of leg ICD Code: L02.419 - Cutaneous abscess of limb, unspecified Procedures None. Brief History - From Admission This is a 51yo male who has a history of traumatic injury to the left lower extremity in 2012 with hardware implantation and multiple reconstructive surgeries who presents to [facility] ED with complaints of 2-3 week history of increased swelling, redness, pain and purulent drainage of the left leg. Patient was recently seen at [facility] and treated with outpatient therapy of what sounds like Bactrim (patient unable to recall name of medication but endorses he took the med twice a day and it was free at [facility]) for 5 days. Patient reports a history of blood clots in the LLE as well as PE. He has had a previous IVC filter placed and was on anticoagulation until 2016. He also endorses a history of MRSA. In the ED, Ortho was contacted and is agreeable to seeing the patient but have asked that no antibiotics be given. CBC/BMP: 04/14/17 0723 04/16/17 0654 Significant Findings Laboratory Tests Test 04/16/17 04/16/17 06:54 11:15 Estimat Glomerular Filtration 76 ML/MIN (>89) Rate Vancomycin Level Trough 19.7 MCG/ML (5.0-10.0) PE at Discharge GENERAL: AOx3, NAD. SKIN: Warm and dry. HEAD: Normocephalic. EYES: No scleral icterus. No injection or drainage. NECK: Supple, trachea midline. No JVD or lymphadenopathy. CARDIOVASCULAR: Regular rate and rhythm without murmurs, gallops, or rubs. RESPIRATORY: Breath sounds equal bilaterally. No accessory muscle use. GASTROINTESTINAL: Abdomen soft, non-tender, nondistended. MUSCULOSKELETAL: No cyanosis. Left leg s/p reconstructive surgeries, edema 2+, multiple draining ulcerations, diffuse erythema. Somewhat improved today. BACK: Nontender without obvious deformity. No CVA tenderness. Pt update on day of discharge Patient is resting in bed, no acute concerns. No fever, chills. Tolerating diet well. Hospital Course 51yo male who has a history of traumatic injury to the left lower extremity in 2012 with hardware implantation and multiple reconstructive surgeries who presents to [facility] ED with complaints of 2-3 week history of increased swelling, redness, pain and purulent drainage of the left leg. - Left lower extremity cellulitis - Probable chronic osteomyelitis - History of traumatic injury, s/p hardware placement, reconstructive surgery. - ESR 39, CRP 4.01. MRI not indicative of osteomyelitis. - Orthopedic surgery, ID following. Currently on Cipro PO and Vancomycin IV. - Follow C&S. Wound cx --> Proteus Mirabilis, GNR, staph aureus. - Continue Percocet PRN, Morphine PRN. - WBC tagged nuclear shows no evidence of osteomyelitis. - Will consult wound care. - Discussed with ID, will discharge pt on PO abx. - Pre-diabetes - Hemoglobin A1C 5.8, 5.9. May benefit from Metformin. - Mild NICOLAS - Creatinine 1.19 --> 1.02. - Ongoing tobaccoism - discussed at the time of admission regarding smoking cessation/counseling Full code. SCDs. Pt Condition on Discharge: Good Discharge Disposition: Discharge Home Discharge Time: > 30 minutes Discharge Instructions DIET: Follow Instructions for: As Tolerated, No Restrictions Activities you can perform: Regular-No Restrictions Follow up Referrals: PCP Follow-up - 1 Week Wound Care Clinic - 1 Week New Medications: Levofloxacin (Levofloxacin) 750 Mg Tablet 750 MG PO DAILY for Infection, #14 TAB 0 Refills Oxycodone-Acetaminophen (Percocet) 7.5-325 mg Tab 1 TAB PO Q6H PRN for PAIN, #20 TAB 0 Refills Eve Angela DO Apr 18, 2017 11:14
[2017-04-18] MEDS: CIPROFLOXACIN 750 MG TAB PO SCH (12:32)
[2017-04-19] MEDS ORDERED: PHARMACY ORDERED LAB ONE (02:45)
== END 2017-04-18 14:00 | disposition home or self-care (01) | DRG 603 ==
LOC: NEPC 08:33 → NEDA 13:51 → N04A 17:21 → N04B 17:54 → N04A 18:37
PROVIDERS: ADMIT Hospitalist; ATTEND Hospitalist
DX: L03.116 Cellulitis of left lower limb (principal); N17.9 Acute kidney failure, unspecified; I10 Essential (primary) hypertension; R60.9 Edema, unspecified; R73.03 Prediabetes; F17.210 Nicotine dependence, cigarettes, uncomplicated; B96.1 Klebsiella pneumoniae [K. pneumoniae] as the cause of diseases classified elsewhere; B95.61 Methicillin susceptible Staphylococcus aureus infection as the cause of diseases classified elsewhere; B96.4 Proteus (mirabilis) (morganii) as the cause of diseases classified elsewhere; Z59.0 Homelessness; Z86.14 Personal history of Methicillin resistant Staphylococcus aureus infection; Z86.718 Personal history of other venous thrombosis and embolism; Z86.711 Personal history of pulmonary embolism
CPT/HCPCS: 73590; 73720; 76937; 78807; 78999; 80048; 80053; 80202; 81001; 82565; 82948; 83036; 83735; 84100; 84439; 84443; 85007; 85025; 85027; 85610; 85652; 86140; 86403; 87040; 87070; 87077; 87147; 87186; 96374; A9569; A9579; J2270; J3370; J7030; J7040

== ENCOUNTER 2017-04-22 10:49 | Emergency (ER) | payer MEDICAID ==
[~2017-04-22] VITALS: Ht 185.4 cm; Wt 100.0 kg
[~2017-04-22 10:49] MED LIST changes: -IBUP800T23 PO; +LEVO750T3 PO; +PERC7.5T13 PO
[2017-04-22 10:50] VITALS: BP 125/80; PULSE 102; RESP 24; TEMP 98.3; O2SAT 97
--- NOTE | 2017-04-22 14:34 | PD ---
HPI Chief Complaint: Skin Problem Time Seen by Provider: 12:43 Travel History International Travel<30 days: No Contact w/Intl Traveler<30days: No Traveled to known affect area: No History of Present Illness HPI This is a 51-year-old male who presents to the emergency department with drainage from his wounds. He reports that the drainage is mild, constant and he has some associated pain. He denies any fevers and chills. He has chronic poorly healing wounds on his left lower extremity for which he was recently admitted to the hospital. He received wound care and was referred to the wound care clinic but when he called the number he was provided he was told that they don't accept his insurance without a referral from primary care physician. The patient is homeless. He did fill his medications today and took his first dose of antibiotic today. PFSH Past Medical History Hx Anticoagulant Therapy: Yes (WARFARIN) Depression: Yes Cancer: No Cardiovascular Problems: Yes (HTN) Deep Vein Thrombosis: Yes (2012) Endocrine: No Genitourinary: No Hypertension: Yes Immune Disorder: No Implanted Vascular Access Dvce: Yes (ivc filter in 2012) Musculoskeletal: No Psychiatric: Yes Respiratory: No Immunizations Current: Yes Tetanus Vaccination: Unknown Influenza Vaccination: No Past Surgical History Body Medical Devices: IVC FILTER AND HI IN THE LEFT LEG Social History Alcohol Use: No (denies) Tobacco Use: Yes (1 pack every 3 days) Substance Use: No Allergies-Medications (Allergen,Severity, Reaction): Coded Allergies: No Known Allergies (Unverified , 04/22/17) Reported Meds & Prescriptions Reported Meds & Active Scripts Active Percocet (Oxycodone-Acetaminophen) 7.5-325 mg Tab 1 Tab PO Q6H PRN Levofloxacin 750 Mg Tablet 750 Mg PO DAILY Review of Systems Except as stated in HPI: all other systems reviewed are Neg Physical Exam Narrative GENERAL:Well appearing, no acute distress SKIN: 2 cm linear wound along the proximal lower tibia with packing in place, optifoam along lower extremity over well healing wound with some granulation tissue, no purulent drainage or warmth HEAD: Atraumatic. Normocephalic. EYES: Pupils equal and round. No injection or drainage. ENT: Moist mucous membranes NECK: Trachea midline. CARDIOVASCULAR: Regular rate and rhythm. No murmur appreciated. RESPIRATORY: Clear to auscultation. Breath sounds equal bilaterally. GASTROINTESTINAL: Abdomen soft, non-tender, nondistended. MUSCULOSKELETAL: No obvious deformities. NEUROLOGICAL: Awake and alert. No obvious cranial nerve deficits. Moving all extremities. PSYCHIATRIC: Appropriate mood and affect; insight and judgment normal. Data Data Last Documented VS Vital Signs Date Time Temp Pulse Resp B/P (MAP) Pulse Ox O2 Delivery O2 Flow Rate FiO2 04/22/17 10:50 98.3 102 24 125/80 (95) 97 Room Air Orders Orders Pad, Foam Basic, Optifoam 4x5 (04/22/17 13:31) Pad, Foam Basic, Optifoam 4x5 (04/22/17 13:31) MDM Medical Decision Making Medical Screen Exam Complete: Yes Emergency Medical Condition: Yes Differential Diagnosis Cellulitis, wound infection, osteomyelitis, chronic wounds Narrative Course This is a 51-year-old male who presents to the emergency department with wounds on his lower extremity for which she was hospitalized recently. He was referred to wound care but told he couldn't go there without a primary care physician's referral. I spoke to case management. The [facility] will take the patient's insurance. He was given a referral to go to the [facility] to get a referral for wound care. His wounds were rewrapped. I don't see any signs of active infection currently and I think they are healing well. Diagnosis Primary Impression: Wound drainage Referrals: [facility] Advanced [facility] Patient Instructions: General Instructions Additional Instructions: If you develop fever, increasing redness, warmth, or spreading of your infection , or severe pain return to the emergency department immediately as you may require antibiotics through your IV. Complete your course of antibiotics as prescribed. Follow up with the [facility] for a referral to the wound care clinic. Med/Other Pt SpecificInfo: No Change to Meds Disposition: 01 DISCHARGE HOME Condition: Stable Radha Graham MD Apr 22, 2017 14:34
== END 2017-04-22 15:13 | disposition home or self-care (01) ==
LOC: NEPD 10:49
DX: S81.802A Unspecified open wound, left lower leg, initial encounter (principal); X58.XXXA Exposure to other specified factors, initial encounter
CPT/HCPCS: 99282

== ENCOUNTER 2017-04-24 10:02 | Emergency (ER) | payer MEDICAID ==
[~2017-04-24] VITALS: Ht 185.4 cm; Wt 100.0 kg
[2017-04-24 10:03] VITALS: BP 125/92; PULSE 106; RESP 15; TEMP 98.4; O2SAT 99
--- NOTE | 2017-04-24 10:41 | PD ---
HPI Chief Complaint: Injury Time Seen by Provider: 10:39 Travel History International Travel<30 days: No Contact w/Intl Traveler<30days: No Traveled to known affect area: No History of Present Illness HPI 51 YO M with PMH of chronic wound of the left lower extremity presents to the ED for evaluation of redness, swelling, pain in the right lower extremity. Patient states that he noticed it this morning. He denies fever, chills, nausea , vomiting. He endorses homelessness. He has an appointment with his [facility] on 04/30 for wound care, packing and dressing change of his left lower extremity. He endorses compliance with Levaquin since previous discharge on . PFSH Past Medical History Hx Anticoagulant Therapy: Yes (WARFARIN) Depression: Yes Cancer: No Cardiovascular Problems: Yes (HTN) Deep Vein Thrombosis: Yes (2012) Endocrine: No Genitourinary: No Hypertension: Yes Immune Disorder: No Implanted Vascular Access Dvce: Yes (ivc filter in 2012) Musculoskeletal: No Psychiatric: Yes Respiratory: No Immunizations Current: Yes Tetanus Vaccination: < 5 Years Past Surgical History Body Medical Devices: IVC FILTER AND HI IN THE LEFT LEG Social History Alcohol Use: No (denies) Tobacco Use: Yes (1 pack every 3 days) Substance Use: No Allergies-Medications (Allergen,Severity, Reaction): Coded Allergies: No Known Allergies (Unverified , 04/24/17) Reported Meds & Prescriptions Reported Meds & Active Scripts Active Percocet (Oxycodone-Acetaminophen) 7.5-325 mg Tab 1 Tab PO Q6H PRN Levofloxacin 750 Mg Tablet 750 Mg PO DAILY Review of Systems Except as stated in HPI: all other systems reviewed are Neg Physical Exam Narrative GENERAL: Well-nourished, well-developed patient. SKIN: Focused skin assessment warm/dry. HEAD: Normocephalic. EYES: No scleral icterus. No injection or drainage. NECK: Supple, trachea midline. No JVD or lymphadenopathy. CARDIOVASCULAR: Regular rate and rhythm without murmurs, gallops, or rubs. RESPIRATORY: Breath sounds equal bilaterally. No accessory muscle use. GASTROINTESTINAL: Abdomen soft, non-tender, nondistended. MUSCULOSKELETAL: No cyanosis, or edema. FOCUSED RIGHT LOWER EXTREMITY EXAM: 2+ DP pulse. Patient maintains full, active , painless ROAM of the ankle and knee. There is an indurated area in the medial anterior garcia which measures about 3 cm in diameter. It is fluctuant but there is no pointing or drainage. There is a zone of inflammation around it but no popliteal lymphadenopathy or cellulitic streaking. FOCUSED LEFT LOWER EXTREMITY EXAM: 2+ DP pulse. Significant reconstruction and lower extremity. 2 cm open wound in the medial aspect, just distal to the knee. Small amount of packing in place. Nonstick dressings over 3 x 5 well granulated abrasion without signs of infection. BACK: Nontender without obvious deformity. No CVA tenderness. Data Data Last Documented VS Vital Signs Date Time Temp Pulse Resp B/P (MAP) Pulse Ox O2 Delivery O2 Flow Rate FiO2 04/24/17 12:48 94 20 129/89 (102) 98 04/24/17 10:03 98.4 Orders Orders Lidocaine 1% Inj (Xylocaine 1% Inj) (04/24/17 11:15) Wound Culture And Gram Stain (04/24/17 11:10) Pad, Foam Basic, Optifoam 4x5 (04/24/17 12:18) MDM Medical Decision Making Medical Screen Exam Complete: Yes Emergency Medical Condition: Yes Differential Diagnosis Contusion versus cellulitis versus abscess versus wound recheck versus dressing change versus other Narrative Course 51 YO M with PMH of chronic wound of the left lower extremity presents to the ED for evaluation of redness, swelling, pain in the right lower extremity. Patient states that he noticed it this morning. He denies fever, chills, nausea , vomiting. He endorses homelessness. He has an appointment with his [facility] on 04/30 for wound care, packing and dressing change of his left lower extremity. He endorses compliance with Levaquin since previous discharge on . Vitals reviewed. Physical exam unremarkable. There is a area of induration on the lower anterior right garcia. Plan care ultrasound reveals fluid collection suspicious for abscess. I&D was performed. Please my procedure note for details. Moderate amount of clotted blood was removed and packing was placed. Dressing changes were performed on the left leg. Please see my procedure note for details. Patient was instructed to return to the ED in 2 days for packing removal and wound evaluation, continue with Levaquin, follow up with the [facility] as planned. He indicated understanding of these instructions and is agreeable to this. He is stable and discharged. Procedures Procedure Narrative INCISION AND DRAINAGE OF ABSCESS: The area was prepped and was sterilely draped. A subcutaneous wheal of 1% Xylocaine with a total number 4 mL was used to anesthetize the area properly. A number 11 scalpel was used to make a 1-cm incision across the area of the abscess. The abscess was drained, complex loculations were broken down, and irrigated with normal saline. Cultures were obtained. Quarter inch iodoform packing was placed in the wound. Sterile dressing applied. Patient advised to have packing removed in two days. DRESSING CHANGE: Dressings were removed from 2 wounds on the left lower leg. Small amount of packing from the medial and proximal wound was removed and replaced. More distal wound is well granulated and without signs of infection. Nonstick absorbent dressings were applied cleaning and Manish wraps were applied secondary to that. Patient tolerated procedure well. Diagnosis Primary Impression: Abscess of leg Additional Impression: Hematoma of leg Qualified Codes: S80.11XA - Contusion of right lower leg, initial encounter Referrals: [facility] Patient Instructions: Abscess (ED), Chronic Wounds (ED), General Instructions Additional Instructions: Rest, hydrate. Do not change the dressings. Return to the ED in 2 days for reevaluation of the wounds. Continue taking antibiotics as prescribed. Follow-up with the [facility] as planned. Return to the ED for any urgent or emergent medical condition. Disposition: 01 DISCHARGE HOME Condition: Stable Debby Mcgee Apr 24, 2017 10:40
[2017-04-24] MEDS ORDERED: LIDOCAINE HCL 1% 30 ML VIAL INFIL ONE (11:15)
[2017-04-24 12:48] VITALS: BP 129/89
--- NOTE | 2017-04-24 13:14 | PD ---
Data Data Last Documented VS Vital Signs Date Time Temp Pulse Resp B/P (MAP) Pulse Ox O2 Delivery O2 Flow Rate FiO2 04/24/17 12:48 94 20 129/89 (102) 98 04/24/17 10:03 98.4 Orders Orders Lidocaine 1% Inj (Xylocaine 1% Inj) (04/24/17 11:15) Wound Culture And Gram Stain (04/24/17 11:10) Pad, Foam Basic, Optifoam 4x5 (04/24/17 12:18) MDM Supervised Visit with CHRISTIANA: Yes Narrative Course The history, exam, and medical decision-making in the associated mid-level provider note were completed with my assistance. I reviewed and agree with the findings presented. I attest that I had a [id number] encounter with the patient on the same day, and personally performed and documented my assessment and findings in the medical record. 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 Dressings changed wound change. He also has a new one on his right leg that brought him in today. Appears to be hematoma following I&D. Continues his antibiotics. We'll bring him back in 2 days for repeat wound check, and patient is arranging for outpatient wound therapy but his appointment with lilibeth singh and it is on the , and will then need to be referred to wound care because of his insurance. Diagnosis Primary Impression: Abscess of leg Additional Impression: Hematoma of leg Referrals: [facility] Patient Instructions: General Instructions, Abscess (ED), Chronic Wounds (ED) Departure Forms: Tests/Procedures Additional Instruction: Rest, hydrate. Do not change the dressings. Return to the ED in 2 days for reevaluation of the wounds. Continue taking antibiotics as prescribed. Follow-up with the [facility] as planned. Return to the ED for any urgent or emergent medical condition. Disposition: 01 DISCHARGE HOME Condition: Stable Nitin Horta MD Apr 24, 2017 13:14
== END 2017-04-24 12:53 | disposition home or self-care (01) ==
LOC: NEPD 10:02
DX: L02.416 Cutaneous abscess of left lower limb (principal); S80.12XA Contusion of left lower leg, initial encounter; I10 Essential (primary) hypertension; F32.9 Major depressive disorder, single episode, unspecified; F17.210 Nicotine dependence, cigarettes, uncomplicated; Z59.0 Homelessness; Z86.718 Personal history of other venous thrombosis and embolism; X58.XXXA Exposure to other specified factors, initial encounter; Z79.899 Other long term (current) drug therapy
CPT/HCPCS: 10060; 86403; 87070; 87205

== ENCOUNTER 2017-04-26 09:38 | Observation (INO) | payer MEDICAID ==
[~2017-04-26] VITALS: Ht 185.4 cm; Wt 102.0 kg
[2017-04-26 09:42] VITALS: BP 132/84; PULSE 100; RESP 24; TEMP 97.7; O2SAT 97
--- NOTE | 2017-04-26 10:34 | PD ---
HPI Chief Complaint: Wound/Suture/Staple Re-Check Time Seen by Provider: 10:10 Travel History International Travel<30 days: No Contact w/Intl Traveler<30days: No Traveled to known affect area: No History of Present Illness HPI 51-year-old male presents emergency department for packing removal and wound recheck to an abscess was drained 2 days ago to his right lower leg. He also has extensive reconstructive surgery to his left lower leg and has 2 wounds that he has an appointment for follow-up on April 30 at [facility]. He is currently taking Levaquin and oxycodone for pain. He last took the medications this morning at 7 AM. He denies fever, vomiting. Reports increased pain to his right lower leg. Has not changed the dressing since he was seen 2 days ago. Reports history of DVT. Has no other medical complaints. No known allergies. No other modifying factors or associated signs and symptoms. PFSH Past Medical History Hx Anticoagulant Therapy: Yes (WARFARIN) Depression: Yes Cancer: No Cardiovascular Problems: Yes (HTN) Deep Vein Thrombosis: Yes (2013) Endocrine: No Genitourinary: No Hypertension: Yes Immune Disorder: No Implanted Vascular Access Dvce: Yes (ivc filter in 2013) Musculoskeletal: No Psychiatric: Yes Respiratory: No Immunizations Current: Yes Tetanus Vaccination: < 5 Years Past Surgical History Body Medical Devices: IVC FILTER AND HI IN THE LEFT LEG Social History Alcohol Use: No (denies) Tobacco Use: Yes (1 pack every 3 days) Substance Use: No Allergies-Medications (Allergen,Severity, Reaction): Coded Allergies: No Known Allergies (Unverified , 04/26/17) Reported Meds & Prescriptions Reported Meds & Active Scripts Active Percocet (Oxycodone-Acetaminophen) 7.5-325 mg Tab 1 Tab PO Q6H PRN Levofloxacin 750 Mg Tablet 750 Mg PO DAILY Review of Systems Except as stated in HPI: all other systems reviewed are Neg Physical Exam Narrative GENERAL: Well-nourished, well-developed male patient, in no acute distress; disheveled; afebrile, nontoxic-appearing SKIN: Warm and dry. Right anterior/medial garcia abscess status post I&D with iodoform packing intact; right lower leg/ankle is edematous; minimal erythema surrounding the abscess area; with dark red drainage. Left garcia with a superficial wound that measures approximately 5.5 cm x 3 cm; without any stranding erythema or drainage. Left upper medial garcia area, just below the knee with approximately 2 cm deep wound with iodoform packing intact and minimal amount of purulent drainage; without surrounding erythema. Left lower leg is post reconstructive surgery and multiple skin grafts. Bilateral lower extremities are supple and non-tense with 2+ pedal pulses and sensory intact. HEAD: Atraumatic. Normocephalic. EYES: Pupils equal and round. No scleral icterus. No injection or drainage. ENT: Mucosa pink and moist. Airway patent. NECK: Trachea midline. CARDIOVASCULAR: Regular rate. RESPIRATORY: No accessory muscle use. GASTROINTESTINAL: Rounded. MUSCULOSKELETAL: No obvious deformities. No clubbing. No cyanosis. No edema. NEUROLOGICAL: Awake and alert. Oriented 3. No obvious cranial nerve deficits. Motor grossly within normal limits. Normal speech. PSYCHIATRIC: Appropriate mood and affect; insight and judgment normal. Data Data Last Documented VS Vital Signs Date Time Temp Pulse Resp B/P (MAP) Pulse Ox O2 Delivery O2 Flow Rate FiO2 04/26/17 11:45 18 04/26/17 09:42 97.7 100 132/84 (100) 97 Room Air Orders Orders Us Leg Venous Doppler (04/26/17 ) Tibia/Fibula (Ap/Lat) (04/26/17 10:45) Complete Blood Count With Diff (04/26/17 11:42) Comprehensive Metabolic Panel (04/26/17 11:42) Act Partial Throm Time (Ptt) (04/26/17 11:42) Prothrombin Time / Inr (Pt) (04/26/17 11:42) Iv Access Insert/Monitor (04/26/17 11:42) Place In Observation (04/26/17 ) Vital Signs (Adult) Q4H (04/26/17 12:08) Activity Oob With Assistance (04/26/17 12:08) Diet Regular Basic (04/26/17 Lunch) Sodium Chloride 0.9% Flush (Ns Flush) (04/26/17 12:15) Sodium Chloride 0.9% Flush (Ns Flush) (04/26/17 21:00) Acetaminophen (Tylenol) (04/26/17 12:15) Ondansetron Inj (Zofran Inj) (04/26/17 12:15) Basic Metabolic Panel (Bmp) (04/27/17 06:00) Complete Blood Count With Diff (04/27/17 06:00) Naloxone Inj (Narcan Inj) (04/26/17 12:15) Docusate Sodium-Senna (Shaina-Colace) (04/26/17 21:00) Magnesium Hydroxide Liq (Milk Of Magnesi (04/26/17 12:15) Sennosides (Senokot) (04/26/17 12:15) Bisacodyl Supp (Dulcolax Supp) (04/26/17 12:15) Lactulose Liq (Lactulose Liq) (04/26/17 12:15) Oxycodone-Acetamin 7.5-325 Mg (Percocet (04/26/17 12:15) Morphine Inj (Morphine Inj) (04/26/17 12:15) Admit Order (Ed Use Only) (04/26/17 ) Labs Laboratory Tests Test 04/26/17 11:55 White Blood Count 9.6 TH/MM3 Red Blood Count 4.15 MIL/MM3 Hemoglobin 12.9 GM/DL Hematocrit 37.8 % Mean Corpuscular Volume 91.2 FL Mean Corpuscular Hemoglobin 31.1 PG Mean Corpuscular Hemoglobin Concent 34.1 % Red Cell Distribution Width 12.9 % Platelet Count 217 TH/MM3 Mean Platelet Volume 7.5 FL Neutrophils (%) (Auto) 67.0 % Lymphocytes (%) (Auto) 19.5 % Monocytes (%) (Auto) 10.2 % Eosinophils (%) (Auto) 1.5 % Basophils (%) (Auto) 1.8 % Neutrophils # (Auto) 6.5 TH/MM3 Lymphocytes # (Auto) 1.9 TH/MM3 Monocytes # (Auto) 1.0 TH/MM3 Eosinophils # (Auto) 0.1 TH/MM3 Basophils # (Auto) 0.2 TH/MM3 CBC Comment DIFF FINAL Differential Comment Prothrombin Time 10.7 SEC Prothromb Time International Ratio 1.0 RATIO Activated Partial Thromboplast Time 25.1 SEC Blood Urea Nitrogen 22 MG/DL Creatinine 1.23 MG/DL Random Glucose 126 MG/DL Total Protein 7.9 GM/DL Albumin 3.2 GM/DL Calcium Level 8.9 MG/DL Alkaline Phosphatase 94 U/L Aspartate Amino Transf (AST/SGOT) 15 U/L Alanine Aminotransferase (ALT/SGPT) 20 U/L Total Bilirubin 0.2 MG/DL Sodium Level 139 MEQ/L Potassium Level 4.3 MEQ/L Chloride Level 102 MEQ/L Carbon Dioxide Level 29.5 MEQ/L Anion Gap 8 MEQ/L Estimat Glomerular Filtration Rate 62 ML/MIN MDM Medical Decision Making Medical Screen Exam Complete: Yes Emergency Medical Condition: Yes Medical Record Reviewed: Yes Differential Diagnosis Packing removal, wound recheck, osteomyelitis, wound infection Narrative Course This is a 51-year-old male who presents for packing removal and wound recheck to bilateral lower extremities. He does have an appointment with [facility] for follow-up on April 30. He is in the process of getting wound care set up. He has history of left lower leg reconstruction and skin grafts. He has history of osteomyelitis. On April 24 he had an abscess to the righy garcia incised and drained and he needs packing removed. He reports increased pain and swelling to the right lower leg. He denies fever, vomiting. Reports taking Levaquin as prescribed. The patient is afebrile and nontoxic-appearing. Bilateral lower extremities are supple and nontender 2+ pedal pulses and sensory intact. I discussed the patient with Dr. Horta, my attending physician, who evaluated the patient 2 days ago and he is going to evaluate the patient also. Dr. Horta's evaluated the patient and recommends right leg ultrasound to rule out DVT and right tib-fib x-ray to rule out osteomyelitis. Orders entered. Patient was moved to Dr. Horta's care at this time. See his note for final disposition. Niki Godinez [facility] Apr 26, 2017 10:34
--- NOTE | 2017-04-26 11:22 | RADRPT ---
EXAM DATE/TIME: 04/26/2017 11:05 [facility] COMPARISON: No previous studies available for comparison. INDICATIONS : Right tibia pain with laceration and drainage. Denies injury MEDICAL HISTORY : Hypertension. Deep vein thrombosis SURGICAL HISTORY : IVC Filter placement. Left lower leg surgeries ENCOUNTER: Initial ACUITY: 4 - 6 days PAIN SCORE: 7/10 LOCATION: Right Tibia FINDINGS: Two view examination of the right tibia demonstrates no evidence of fracture or dislocation. There is an old well-corticated enthesophyte along the inferior pole of the patella consistent with an area o f prior injury. Bony mineralization is normal. The soft tissue structures are intact. CONCLUSION: No acute disease. Rebecca Rivera MD on April 26, 2017 at 11:20 Board Certified Radiologist. This report was verified electronically.
--- NOTE | 2017-04-26 11:37 | RADRPT ---
EXAM DATE/TIME: 04/26/2017 10:57 [facility] COMPARISON: No previous studies available for comparison. INDICATIONS : Right leg wound. Swelling. MEDICAL HISTORY : Hypertension. Right leg wound. SURGICAL HISTORY : Left leg surgery. IVC filter. ENCOUNTER: Initial ACUITY: 1 day PAIN SCORE: 6/10 LOCATION: Right leg. COMPLETE APPROPRIATE ITEMS PRE PROCEDURE: ID x 2: Complete NameDate of BirthPatient Name BandEducation: Nurse/Technologist explained procedur e to patient/family. Patient/family demonstrated understanding of procedure. TECHNIQUE: Venous ultrasound of the leg was performed from the inguinal ligament to the proximal calf. Real-helena e, color Doppler and spectral tracing, compression and augmentation techniques were used. FINDINGS: There is incomplete compressibility of the deep venous system from the inguinal region to the poplite al vein with normal filling with color on Doppler interrogation consistent with old or nonocclusive c lot. There is echogenic occlusive clot identified within the lumen of the posterior tibial and perone al veins. There multiple enlarged lymph nodes identified within the right inguinal region. CONCLUSION: There is old nonocclusive clot identified within the region of the common femoral vei n, superficial femoral vein and popliteal vein with occlusive thrombus within the posterior tibial ve in and peroneal vein consistent with acute thrombosis. Multiple enlarged right inguinal lymph nodes a re likely reactive to the leg wound. Rebecca Rivera MD on April 26, 2017 at 11:29 Board Certified Radiologist. This report was verified electronically.
--- NOTE | 2017-04-26 12:11 | HHI.HP ---
HPI Service [facility] Primary Care Physician Unknown Admission Diagnosis Diagnoses: Chief Complaint: Right ankle swelling, pain. Travel History International Travel<30 Days: No Contact w/Intl Traveler <30 Da: No Traveled to Known Affected Are: No History of Present Illness Mr. Doran is a pleasant 51-year-old male with a history of traumatic injury to his left lower extremity 2013 status post hardware implantation and multiple reconstructive surgeries who presented to the emergency department on 04/26/2017 due to right ankle swelling and pain. Patient was seen in the emergency Department for packing removal and wound recheck and abscess of the right lower extremity that was drained 2 days prior to this admission. I&D of the right lower extremity abscess was done on the . However he started having significant ankle pain and swelling. He denies any chest pain, shortness of breath, fever or chills. Denies any pain, changes in bowel or bladder habits. He does have a history of DVT and PE and patient to warfarin in . On further questioning, patient admits to not moving around too much due to pain. He only walks very short distance. On arrival pulse 100, respiration 24, blood pressure 132/84, pulse oximetry 97% on room air, temperature 97.7F. Right lower extremity ultrasound indicated acute thrombosis. Of note, patient was discharged on 04/18/2017 with Levaquin. His left leg wound cx and blood culture grew Proteus mirabilis. Patient was discharged on Levaquin for 14 days per ID recommendations. Review of Systems Except as stated in HPI: all other systems reviewed are Neg Past Family Social History Past Medical History history of traumatic injury to the left lower extremity in 2013 with hardware implantation and multiple reconstructive surgeries H/O LLE DVT and PEs H/O MRSA Prediabetes History of suicidal thoughts Tobacco abuse Past Surgical History Tonsillectomy h/o traumatic injury to the LLE s/p hardware implantation and multiple reconstructive surgeries Reported Medications Percocet (Oxycodone-Acetaminophen) 7.5-325 mg Tab 1 Tab PO Q6H PRN Levofloxacin 750 Mg Tablet 750 Mg PO DAILY Allergies: Coded Allergies: No Known Allergies (Unverified , 04/26/17) Family History Mother, HTN Father, DM Social History Smokes about half a pack a day. Drinks alcohol occasionally. Denies any current illicit drug use. Physical Exam Vital Signs Vital Signs Date Time Temp Pulse Resp B/P (MAP) Pulse Ox O2 Delivery O2 Flow Rate FiO2 04/26/17 11:45 18 04/26/17 09:42 97.7 100 24 132/84 (100) 97 Room Air Physical Exam GENERAL: This is a well-nourished, well-developed patient, in no apparent distress. SKIN: No rashes, ecchymoses or lesions. Warm and dry. HEAD: Atraumatic. Normocephalic. No temporal or scalp tenderness. EYES: Pupils equal round and reactive. No injection or drainage. ENT: Nose without bleeding, purulent drainage or septal hematoma. Airway patent. NECK: Trachea midline. No lymphadenopathy. Supple, nontender, no meningeal signs. CARDIOVASCULAR: Regular rate and rhythm without murmurs, gallops, or rubs. No JVD. RESPIRATORY: Clear to auscultation. Breath sounds equal bilaterally. No wheezes , rales, or rhonchi. GASTROINTESTINAL: Abdomen soft, non-tender, nondistended. No guarding. MUSCULOSKELETAL: Left lower ext s/p multiple reconstructive surgeries. No active infection. Right lower ext abscess s/p I&D, ankle erythematous, edema present. Lower part of the right lower ext very tender to light palpation. NEUROLOGICAL: Awake and alert. Cranial nerves II through XII intact. No focal neurological deficits. Normal speech. Laboratory CBC 04/26/17 WBC 9.6 hemoglobin 12.9 hematocrit 37.8 platelets 217. CMP 04/26/2017 sodium 139 potassium 4.3 chloride 102 CO2 29.5 and 8 BUN 22 creatinine 1.23 EGFR 62 random glucose 126. Imaging Last Impressions Tibia/Fibula X-Ray 04/26/17 1045 Signed Impressions: Service Date/Time: Wednesday, April 26, 2017 11:05 - CONCLUSION: No acute disease. Rebecca Rivera MD Lower Extremity Ultrasound 04/26/17 0000 Signed Impressions: Service Date/Time: Wednesday, April 26, 2017 10:57 - CONCLUSION: There is old nonocclusive clot identified within the region of the common femoral vein, superficial femoral vein and popliteal vein with occlusive thrombus within the posterior tibial vein and peroneal vein consistent with acute thrombosis. Multiple enlarged right inguinal lymph nodes are likely reactive to the leg wound. MD Maximiliano Zambrano VTE Risk Assessment Caprini VTE Risk Assessment: Mod/High Risk (score >= 2) Caprini Risk Assessment Model Point Value = 1 Point Value = 2 Point Value = 3 Point Value = 5 Age 41-60 Minor surgery BMI > 25 kg/m2 Swollen legs Varicose veins or History of unexplained or recurrent spontaneous Oral contraceptives or hormone replacement Sepsis (< 1 month) Serious lung disease, including pneumonia (< 1 month) Abnormal pulmonary function Acute myocardial infarction Congestive heart failure (< 1 month) History of inflammatory bowel disease Medical patient at bed rest Age 61-74 Arthroscopic surgery Major open surgery (> 45 min) Laparoscopic surgery (> 45 min) Malignancy Confined to bed (> 72 hours) Immobilizing plaster cast Central venous access Age >= 75 History of VTE Family history of VTE Factor V Leiden Prothrombin [id number] Lupus anticoagulant Anticardiolipin antibodies Elevated serum homocysteine Heparin-induced thrombocytopenia Other congenital or acquired thrombophilia Stroke (< 1 month) Elective arthroplasty Hip, pelvis, or leg fracture Acute spinal cord injury (< 1 month) Prophylaxis Regimen Total Risk Factor Score Risk Level Prophylaxis Regimen 0-1 Low Early ambulation 2 Moderate Order ONE of the following: *Sequential Compression Device (SCD) *Heparin 5000 units SQ BID 3-4 Higher Order ONE of the following medications: *Heparin 5000 units SQ TID *Enoxaparin/Lovenox 40 mg SQ daily (WT < 150 kg, CrCl > 30 mL/min) *Enoxaparin/Lovenox 30 mg SQ daily (WT < 150 kg, CrCl > 10-29 mL/min) *Enoxaparin/Lovenox 30 mg SQ BID (WT < 150 kg, CrCl > 30 mL/min) AND/OR *Sequential Compression Device (SCD) 5 or more Highest Order ONE of the following medications: *Heparin 5000 units SQ TID (Preferred with Epidurals) *Enoxaparin/Lovenox 40 mg SQ daily (WT < 150 kg, CrCl > 30 mL/min) *Enoxaparin/Lovenox 30 mg SQ daily (WT < 150 kg, CrCl > 10-29 mL/min) *Enoxaparin/Lovenox 30 mg SQ BID (WT < 150 kg, CrCl > 30 mL/min) AND *Sequential Compression Device (SCD) Assessment and Plan Problem List: (1) Abscess of right leg ICD Code: L02.415 - Cutaneous abscess of right lower limb (2) Right leg DVT ICD Code: I82.401 - Acute embolism and thrombosis of unspecified deep veins of right lower extremity Assessment and Plan Mr. Doran is a 51-year-old male with a history of left lower leg traumatic injury status post multiple reconstructive surgery who presented to the emergency department on 04/26/2017 due to worsening right ankle swelling and pain. Patient recently underwent I&D of the right leg abscess. In the emergency department on 04/26/2017, ultrasound shows right lower extremity DVT. - Right upper extremity DVT - History of DVT, PE - We'll start patient on apixaban 10 mg twice a day for 7 days and then 5 mg twice a day. - Since patient has a history of DVT, PE we'll plan on continuing anticoagulation indefinitely. - Check with case management regarding prescription coverage through Medicaid. - Right lower leg abscess - Chronic left lower ext wound - s/p multiple reconstructive surgeries. - Status post I&D 2 days ago. Patient has no fever or chills. No leukocytosis. - Abscess area does have some surrounding erythema and tenderness. - We'll initiate vancomycin for now. Also get wound culture. - We'll de-escalate antibiotics based on on culture results. - Wound care consult. - Acetaminophen, Percocet and Morphine PRN for pain. - Pre-diabetes - HbA1C was 5.8 or 5.9. On discharge consider, Metformin 500mg BID. - Mild NICOLAS - Creatinine 1.23 today. Baseline slightly lower around 1.02. - Will monitor. Avoid nephrotoxins. - Tobacco abuse - Counselled patient regarding tobacco cessation. Full code. Apixaban. Eve Angela DO Apr 26, 2017 12:11
[2017-04-26 12:14] LABS: APTT (PATIENT) 25.1 SEC (24.3-30.1); AUTOMATED NEUTROPHIL # 6.5 TH/MM3 (1.8-7.7); BASOPHIL # 0.2 TH/MM3 (0-0.2); BASOPHIL % 1.8 % (0.0-2.0); EOSINOPHIL # 0.1 TH/MM3 (0-0.4); EOSINOPHIL % 1.5 % (0.0-4.0); HEMATOCRIT 37.8 % (39.0-51.0); HEMO FLAGS DIFF FINAL; LYMPH % 19.5 % (9.0-44.0); LYMPHOCYTE # 1.9 TH/MM3 (1.0-4.8); MEAN CELL VOLUME 91.2 FL (80.0-100.0); MEAN CORPUSCULAR HEMOGLOBIN 31.1 PG (27.0-34.0); MEAN CORPUSCULAR HGB CONC 34.1 % (32.0-36.0); MONO % 10.2 % (0.0-8.0); PLATELET COUNT 217 TH/MM3 (150-450); PROTHROMBIN TIME - PATIENT 10.7 SEC (9.8-11.6); RED BLOOD COUNT 4.15 MIL/MM3 (4.50-5.90); RED CELL DISTRIBUTION WIDTH 12.9 % (11.6-17.2); WHITE BLOOD COUNT 9.6 TH/MM3 (4.0-11.0)
[2017-04-26] MEDS ORDERED: MAGNESIUM HYDROXIDE SUSP 30 ML CUP PO PRN (12:15)
[2017-04-26] MEDS ORDERED: MORPHINE SULFATE 4 MG/ML INJ IV PUSH PRN (12:15)
[2017-04-26] MEDS ORDERED: BISACODYL 10 MG SUPP RECTAL PRN (12:15)
[2017-04-26] MEDS ORDERED: SODIUM CHLORIDE 0.9% FLUSH 10 ML FLUSH IV FLUSH PRN (12:15)
[2017-04-26] MEDS ORDERED: LACTULOSE SYRUP 20 GM/30 ML CUP PO PRN (12:15)
[2017-04-26] MEDS ORDERED: ONDANSETRON HCL 4 MG/2 ML VIAL IVP PRN (12:15)
[2017-04-26] MEDS ORDERED: ACETAMINOPHEN 325 MG TAB PO PRN (12:15)
[2017-04-26] MEDS ORDERED: SENNOSIDES 8.6 MG TAB PO PRN (12:15)
[2017-04-26] MEDS ORDERED: NALOXONE HCL 0.4 MG/ML AMP IV PRN (12:15)
[2017-04-26 12:18] VITALS: BP 134/86; PULSE 71; RESP 18; TEMP 98.1; O2SAT 99
[2017-04-26 12:22] LABS: ALT (GPT) 20 U/L (12-78); ANION GAP 8 MEQ/L (5-15); AST (GOT) 15 U/L (15-37); BICARBONATE 29.5 MEQ/L (21.0-32.0); CHLORIDE 102 MEQ/L (98-107); GLOMERULAR FILTRATION RATE 62 ML/MIN (>89); POTASSIUM 4.3 MEQ/L (3.5-5.1); SODIUM (NA) 139 MEQ/L (136-145)
[2017-04-26 12:25] LABS: ALKALINE PHOSPHATASE 94 U/L (45-117); BLOOD UREA NITROGEN 22 MG/DL (7-18); TOTAL BILIRUBIN ADULT 0.2 MG/DL (0.2-1.0)
[2017-04-26] MEDS: oxyCODONE/ACETAMINOPHEN 7.5 MG/325 MG TAB PO PRN ×2 (12:46→18:00)
--- NOTE | 2017-04-26 12:50 | PD ---
Data Data Last Documented VS Vital Signs Date Time Temp Pulse Resp B/P (MAP) Pulse Ox O2 Delivery O2 Flow Rate FiO2 04/26/17 11:45 18 04/26/17 09:42 97.7 100 132/84 (100) 97 Room Air Orders Orders Us Leg Venous Doppler (04/26/17 ) Tibia/Fibula (Ap/Lat) (04/26/17 10:45) Complete Blood Count With Diff (04/26/17 11:42) Comprehensive Metabolic Panel (04/26/17 11:42) Act Partial Throm Time (Ptt) (04/26/17 11:42) Prothrombin Time / Inr (Pt) (04/26/17 11:42) Iv Access Insert/Monitor (04/26/17 11:42) Place In Observation (04/26/17 ) Vital Signs (Adult) Q4H (04/26/17 12:08) Activity Oob With Assistance (04/26/17 12:08) Diet Regular Basic (04/26/17 Lunch) Sodium Chloride 0.9% Flush (Ns Flush) (04/26/17 12:15) Sodium Chloride 0.9% Flush (Ns Flush) (04/26/17 21:00) Acetaminophen (Tylenol) (04/26/17 12:15) Ondansetron Inj (Zofran Inj) (04/26/17 12:15) Basic Metabolic Panel (Bmp) (04/27/17 06:00) Complete Blood Count With Diff (04/27/17 06:00) Naloxone Inj (Narcan Inj) (04/26/17 12:15) Docusate Sodium-Senna (Shaina-Colace) (04/26/17 21:00) Magnesium Hydroxide Liq (Milk Of Magnesi (04/26/17 12:15) Sennosides (Senokot) (04/26/17 12:15) Bisacodyl Supp (Dulcolax Supp) (04/26/17 12:15) Lactulose Liq (Lactulose Liq) (04/26/17 12:15) Oxycodone-Acetamin 7.5-325 Mg (Percocet (04/26/17 12:15) Morphine Inj (Morphine Inj) (04/26/17 12:15) Admit Order (Ed Use Only) (04/26/17 ) Labs Laboratory Tests Test 04/26/17 11:55 White Blood Count 9.6 TH/MM3 Red Blood Count 4.15 MIL/MM3 Hemoglobin 12.9 GM/DL Hematocrit 37.8 % Mean Corpuscular Volume 91.2 FL Mean Corpuscular Hemoglobin 31.1 PG Mean Corpuscular Hemoglobin Concent 34.1 % Red Cell Distribution Width 12.9 % Platelet Count 217 TH/MM3 Mean Platelet Volume 7.5 FL Neutrophils (%) (Auto) 67.0 % Lymphocytes (%) (Auto) 19.5 % Monocytes (%) (Auto) 10.2 % Eosinophils (%) (Auto) 1.5 % Basophils (%) (Auto) 1.8 % Neutrophils # (Auto) 6.5 TH/MM3 Lymphocytes # (Auto) 1.9 TH/MM3 Monocytes # (Auto) 1.0 TH/MM3 Eosinophils # (Auto) 0.1 TH/MM3 Basophils # (Auto) 0.2 TH/MM3 CBC Comment DIFF FINAL Differential Comment Prothrombin Time 10.7 SEC Prothromb Time International Ratio 1.0 RATIO Activated Partial Thromboplast Time 25.1 SEC Blood Urea Nitrogen 22 MG/DL Creatinine 1.23 MG/DL Random Glucose 126 MG/DL Total Protein 7.9 GM/DL Albumin 3.2 GM/DL Calcium Level 8.9 MG/DL Alkaline Phosphatase 94 U/L Aspartate Amino Transf (AST/SGOT) 15 U/L Alanine Aminotransferase (ALT/SGPT) 20 U/L Total Bilirubin 0.2 MG/DL Sodium Level 139 MEQ/L Potassium Level 4.3 MEQ/L Chloride Level 102 MEQ/L Carbon Dioxide Level 29.5 MEQ/L Anion Gap 8 MEQ/L Estimat Glomerular Filtration Rate 62 ML/MIN [facility] Supervised Visit with CHRISTIANA: Yes Narrative Course The history, exam, and medical decision-making in the associated mid-level provider note were completed with my assistance. I reviewed and agree with the findings presented. I attest that I had a [id number] encounter with the patient on the same day, and personally performed and documented my assessment and findings in the medical record. *My assessment and Findings: So 51-year-old male chronic leg wounds. His left leg is the result of a remote trauma with open tib-fib fractures with complex repair now with infection and possible osteomyelitis. He is on long-term antibiotics. He has osteomyelitis, he may need an amputation in the future. She had been treated with long-term antibiotics and is been discharged. He is homeless. He is a history of DVT. Since being discharged in the ER multiple times for wound care while he is awaiting appointment with [facility] so he can get referred to the wound clinic. He started having symptoms in the other leg. He had an I&D performed on the other leg. He now has worsening swelling of the entire leg and is positive for DVT. He'll be readmitted to initiate anticoagulation, and for case management and follow-up plan for long-term anticoagulation given his complex social situation. Nitin Horta MD Apr 26, 2017 12:50
[2017-04-26] MEDS ORDERED: Vancomycin Consult Pharmacy 1 EA OTHER SCH (14:45)
[2017-04-26 16:00] VITALS: BP 135/97; PULSE 77; RESP 19; TEMP 96.5; O2SAT 99
[2017-04-26] MEDS: SODIUM CHLOR 0.9% 1000 ML INJ 1,000 ML IV SCH (16:15)
[2017-04-26] MEDS: APIXABAN 5 MG TABLET PO SCH ×2 (16:15→20:40)
[2017-04-26] MEDS: VANCOMYCIN INJ 1,250 MG in SODIUM CHLOR 0.9% 250 ML INJ 250 ML IV SCH (18:00)
[2017-04-26 19:30] VITALS: BP 104/69; PULSE 70; RESP 17; TEMP 97.9; O2SAT 96
[2017-04-26] MEDS: DOCUSATE SODIUM 50 MG/SENNA 8.6 MG TAB PO SCH (20:38)
[2017-04-26] MEDS: SODIUM CHLORIDE 0.9% FLUSH 10 ML FLUSH IV FLUSH SCH (20:40)
[2017-04-27] MEDS: oxyCODONE/ACETAMINOPHEN 7.5 MG/325 MG TAB PO PRN ×3 (00:15→13:35)
[2017-04-27] MEDS: SODIUM CHLOR 0.9% 1000 ML INJ 1,000 ML IV SCH ×2 (00:16→07:46)
[2017-04-27 00:25] VITALS: BP 113/84; PULSE 75; RESP 17; TEMP 97.2; O2SAT 97
[2017-04-27] MEDS: APIXABAN 5 MG TABLET PO SCH ×2 (03:52→17:11)
[2017-04-27] MEDS: VANCOMYCIN INJ 1,250 MG in SODIUM CHLOR 0.9% 250 ML INJ 250 ML IV SCH (03:56)
[2017-04-27 04:00] VITALS: BP 118/83; PULSE 61; RESP 17; TEMP 97.2; O2SAT 99
[2017-04-27 07:38] LABS: AUTOMATED NEUTROPHIL # 3.6 TH/MM3 (1.8-7.7); BASOPHIL % 0.8 % (0.0-2.0); EOSINOPHIL # 0.2 TH/MM3 (0-0.4); EOSINOPHIL % 3.4 % (0.0-4.0); HEMATOCRIT 37.8 % (39.0-51.0); HEMO FLAGS DIFF FINAL; LYMPH % 23.6 % (9.0-44.0); LYMPHOCYTE # 1.4 TH/MM3 (1.0-4.8); MEAN CELL VOLUME 90.8 FL (80.0-100.0); MEAN CORPUSCULAR HGB CONC 34.1 % (32.0-36.0); MONO % 11.3 % (0.0-8.0); NEUT % 60.9 % (16.0-70.0); PLATELET COUNT 188 TH/MM3 (150-450); RED BLOOD COUNT 4.17 MIL/MM3 (4.50-5.90)
[2017-04-27] MEDS: DOCUSATE SODIUM 50 MG/SENNA 8.6 MG TAB PO SCH (07:39)
[2017-04-27] MEDS: SODIUM CHLORIDE 0.9% FLUSH 10 ML FLUSH IV FLUSH SCH (07:45)
[2017-04-27 08:00] VITALS: BP 134/83; PULSE 65; RESP 16; TEMP 97.6; O2SAT 98
[2017-04-27 08:06] LABS: BICARBONATE 28.4 MEQ/L (21.0-32.0)
[2017-04-27 11:35] VITALS: BP 130/76; PULSE 70; RESP 18; TEMP 97.3; O2SAT 100
[2017-04-27] MEDS ORDERED: SULFAMETHOXAZOLE-TRIMETHOPRIM DS 800-160 MG TAB PO SCH (12:15)
--- NOTE | 2017-04-27 12:16 | HHI.PR ---
Subjective Remarks Follow-up for I&D and possible cellulitis Patient has no complaints. He stated he is doing well. Deny any shortness of breathing, chest pain, palpitation, lightheadedness or dizziness. Patient's nurse and tech are at the bedside during the interview. Objective Vitals Vital Signs Date Time Temp Pulse Resp B/P (MAP) Pulse Ox O2 Delivery O2 Flow Rate FiO2 04/27/17 11:35 97.3 70 18 130/76 (94) 100 04/27/17 08:00 97.6 65 16 134/83 (100) 98 04/27/17 04:00 97.2 61 17 118/83 (95) 99 04/27/17 00:25 97.2 75 17 113/84 (94) 97 04/26/17 19:30 97.9 70 17 104/69 (81) 96 04/26/17 16:00 96.5 77 19 135/97 (110) 99 04/26/17 13:50 04/26/17 12:18 98.1 71 18 134/86 (102) 99 Room Air I/O 04/26/17 04/26/17 04/26/17 04/27/17 04/27/17 04/27/17 07:00 15:00 23:00 07:00 15:00 23:00 Intake Total 490 ml 1303 ml Output Total 500 ml 300 ml 225 ml Balance -10 ml 1003 ml -225 ml Intake Oral 240 ml 240 ml IV Total 250 ml 1063 ml Output Urine Total 500 ml 300 ml 225 ml # Bowel Movements 0 0 Result Diagram: 04/27/17 0658 04/27/17 0658 Imaging Last Impressions Tibia/Fibula X-Ray 04/26/17 1045 Signed Impressions: Service Date/Time: Wednesday, April 26, 2017 11:05 - CONCLUSION: No acute disease. Rebecca Rivera MD Lower Extremity Ultrasound 04/26/17 0000 Signed Impressions: Service Date/Time: Wednesday, April 26, 2017 10:57 - CONCLUSION: There is old nonocclusive clot identified within the region of the common femoral vein, superficial femoral vein and popliteal vein with occlusive thrombus within the posterior tibial vein and peroneal vein consistent with acute thrombosis. Multiple enlarged right inguinal lymph nodes are likely reactive to the leg wound. Rebecca Rivera MD Objective Remarks GENERAL: This is a well-nourished, well-developed patient, in no apparent distress. CARDIOVASCULAR: Regular rate and rhythm without murmurs, gallops, or rubs. No JVD. RESPIRATORY: Clear to auscultation. Breath sounds equal bilaterally. No wheezes , rales, or rhonchi. GASTROINTESTINAL: Abdomen soft, non-tender, nondistended. No guarding. MUSCULOSKELETAL: Left lower ext s/p multiple reconstructive surgeries. No active infection. Right lower ext abscess s/p I&D, mild erythema around I and D site. no discharge noted at this site. NEUROLOGICAL: Awake and alert. Cranial nerves II through XII intact. No focal neurological deficits. Normal speech. Medications and IVs Current Medications Sodium Chloride (NS Flush) 2 ml UNSCH PRN IV FLUSH FLUSH AFTER USING IV ACCESS ; Start 04/26/17 at 12:15 Sodium Chloride (NS Flush) 2 ml BID IV FLUSH ; Start 04/26/17 at 21:00 Acetaminophen (Tylenol) 650 mg Q4H PRN PO HEADACHE, FEVER, PAIN 1-4; Start at 12:15 Ondansetron HCl (Zofran Inj) 4 mg Q6H PRN IVP NAUSEA OR VOMITING; Start at 12:15 Naloxone HCl (Narcan Inj) 0.4 mg UNSCH PRN IV SEE LABEL COMMENTS; Start at 12:15 Senna/Docusate Sodium (Shaina-Colace) 1 tab BID PO Last administered on 07:39; Start 04/26/17 at 21:00 Magnesium Hydroxide (Milk Of Magnesia Liq) 30 ml Q12H PRN PO MILD - MODERATE CONSTIPATION; Start 04/26/17 at 12:15 Sennosides (Senokot) 17.2 mg Q12H PRN PO MODERATE - SEVERE CONSTIPATION Last administered on 04/27/17 07:40; Start 04/26/17 at 12:15 Bisacodyl (Dulcolax Supp) 10 mg DAILY PRN RECTAL SEVERE CONSITIPATION; Start at 12:15 Lactulose (Lactulose Liq) 30 ml DAILY PRN PO SEVERE CONSITIPATION; Start at 12:15 Oxycodone/ Acetaminophen (Percocet 7.5-325 Mg) 1 tab Q6H PRN PO PAIN SCALE 5 TO 10 Last administered on 04/27/17 07:39; Start 04/26/17 at 12:15 Morphine Sulfate (Morphine Inj) 4 mg Q3H PRN IV PUSH BREAKTHROUGH PAIN; Start 04/26/17 at 12:15 Apixaban (Eliquis) 10 mg BID PO Last administered on 04/26/17 16:15; Start at 15:00; Stop 04/26/17 at 21:09; Status DC Pharmacy Profile Note 0 ml @ 0 mls/hr UNSCH OTHER ; Start 04/26/17 at 14:45 Sodium Chloride 1,000 ml @ 100 mls/hr Q10H IV Last administered on 04/27/17 00:16; Start 04/26/17 at 14:45; Stop 04/27/17 at 14:44 Vancomycin HCl 1250 mg/Sodium Chloride 250 ml @ 250 mls/hr Q12H IV Last administered on 04/27/17 03:56; Start 04/26/17 at 17:00 Miscellaneous Information SPECIFIC LAB TO BE ... ONCE ONCE .XX ; Start 04/28 at 04:45; Stop 04/28/17 at 04:46 Apixaban (Eliquis) 10 mg DAILY@0400,1600 PO Last administered on 04/27/17 03: 52; Start 04/27/17 at 04:00; Stop 05/02/17 at 16:01 A/P Problem List: (1) Abscess of right leg ICD Code: L02.415 - Cutaneous abscess of right lower limb (2) Right leg DVT ICD Code: I82.401 - Acute embolism and thrombosis of unspecified deep veins of right lower extremity Assessment and Plan Mr. Doran is a 51-year-old male with a history of left lower leg traumatic injury status post multiple reconstructive surgery who presented to the emergency department on 04/26/2017 due to worsening right ankle swelling and pain. Patient recently underwent I&D of the right leg abscess. In the emergency department on 04/26/2017, ultrasound shows right lower extremity DVT. - Right upper extremity DVT - History of DVT, PE - Patient started on apixaban 10 mg twice a day for 7 days and then 5 mg twice a day. Unsure if his insurance will cover this. I doubt with case management personally to see what his insurance will cover. - Since patient has a history of DVT, PE we'll plan on continuing anticoagulation indefinitely. - Right lower leg abscess - Chronic left lower ext wound - s/p multiple reconstructive surgeries. - Status post I&D 2 days ago. Patient has no fever or chills. No leukocytosis. - Patient was treated with vancomycin but wound at the moment shows no sign of cellulitis with post inflammatory changes from I&D. -Will switch to Bactrim. And discontinue vancomycin. - Pre-diabetes - HbA1C was 5.8 or 5.9. On discharge consider, Metformin 500mg BID. - Mild NICOLAS - Creatinine 1.23 today. Baseline slightly lower around 1.02. - Will monitor. Avoid nephrotoxins. - Tobacco abuse - Counselled patient regarding tobacco cessation. Full code. Apixaban. Discharge Planning Patient is medically clear for discharge but he will need anticoagulation before discharge. Dealt with case management to verify with his insurance what anticoagulation is covered. Case management told to notify me when this is completed. Malgorzata Heaton MD Apr 27, 2017 12:16
[2017-04-27] MEDS ORDERED: SULF1TAB23 PO (14:07)
[2017-04-27] MEDS ORDERED: APIX5TAB PO (14:07)
--- NOTE | 2017-04-27 14:08 | HHI.DCPOC ---
Discharge Care Plan Diagnosis: (1) Right leg DVT (2) Abscess of right leg (3) History of DVT (deep vein thrombosis) Goals to Promote Your Health * To prevent worsening of your condition and complications * To maintain your health at the optimal level Directions to Meet Your Goals Take your medications as prescribed Follow your dietary instruction Follow activity as directed Keep your appointments as scheduled Take your immunizations and boosters as scheduled If your symptoms worsen call your PCP, if no PCP go to Urgent Care Center or Emergency Room Smoking is Dangerous to Your Health. Avoid second hand smoke Call the 24-hour hour crisis hotline for domestic abuse at Malgorzata Heaton MD Apr 27, 2017 14:08
--- NOTE | 2017-04-27 14:09 | HHI.DS ---
Discharge Summary Admission Date Apr 26, 2017 at 12:15 Discharge Date: Apr 27, 2017 Admitting Diagnosis (1) Abscess of right leg ICD Code: L02.415 - Cutaneous abscess of right lower limb Diagnosis: Secondary (2) Right leg DVT ICD Code: I82.401 - Acute embolism and thrombosis of unspecified deep veins of right lower extremity Diagnosis: Principal Procedures 1none Brief History - From Admission Mr. Doran is a pleasant 51-year-old male with a history of traumatic injury to his left lower extremity 2013 status post hardware implantation and multiple reconstructive surgeries who presented to the emergency department on 04/26/2017 due to right ankle swelling and pain. Patient was seen in the emergency Department for packing removal and wound recheck and abscess of the right lower extremity that was drained 2 days prior to this admission. I&D of the right lower extremity abscess was done on the . However he started having significant ankle pain and swelling. He denies any chest pain, shortness of breath, fever or chills. Denies any pain, changes in bowel or bladder habits. He does have a history of DVT and PE and patient to warfarin in . On further questioning, patient admits to not moving around too much due to pain. He only walks very short distance. On arrival pulse 100, respiration 24, blood pressure 132/84, pulse oximetry 97% on room air, temperature 97.7F. Right lower extremity ultrasound indicated acute thrombosis. Of note, patient was discharged on 04/18/2017 with Levaquin. His left leg wound cx and blood culture grew Proteus mirabilis. Patient was discharged on Levaquin for 14 days per ID recommendations. CBC/BMP: 04/27/17 0658 04/27/17 0658 Significant Findings Laboratory Tests Test 04/26/17 11:55 04/27/17 06:58 Red Blood Count 4.15 MIL/MM3 (4.50-5.90) 4.17 MIL/MM3 (4.50-5.90) Hemoglobin 12.9 GM/DL (13.0-17.0) 12.9 GM/DL (13.0-17.0) Hematocrit 37.8 % (39.0-51.0) 37.8 % (39.0-51.0) Monocytes (%) (Auto) 10.2 % (0.0-8.0) 11.3 % (0.0-8.0) Monocytes # (Auto) 1.0 TH/MM3 (0-0.9) Blood Urea Nitrogen 22 MG/DL (7-18) Random Glucose 126 MG/DL (74-106) Albumin 3.2 GM/DL (3.4-5.0) Estimat Glomerular Filtration Rate 62 ML/MIN (>89) 75 ML/MIN (>89) Calcium Level 8.2 MG/DL (8.5-10.1) Imaging Last Impressions Tibia/Fibula X-Ray 04/26/17 1045 Signed Impressions: Service Date/Time: Wednesday, April 26, 2017 11:05 - CONCLUSION: No acute disease. Rebecca Rivera MD Lower Extremity Ultrasound 04/26/17 0000 Signed Impressions: Service Date/Time: Wednesday, April 26, 2017 10:57 - CONCLUSION: There is old nonocclusive clot identified within the region of the common femoral vein, superficial femoral vein and popliteal vein with occlusive thrombus within the posterior tibial vein and peroneal vein consistent with acute thrombosis. Multiple enlarged right inguinal lymph nodes are likely reactive to the leg wound. Rebecca Rivera MD PE at Discharge GENERAL: This is a well-nourished, well-developed patient, in no apparent distress. CARDIOVASCULAR: Regular rate and rhythm without murmurs, gallops, or rubs. No JVD. RESPIRATORY: Clear to auscultation. Breath sounds equal bilaterally. No wheezes , rales, or rhonchi. GASTROINTESTINAL: Abdomen soft, non-tender, nondistended. No guarding. MUSCULOSKELETAL: Left lower ext s/p multiple reconstructive surgeries. No active infection. Right lower ext abscess s/p I&D, mild erythema around I and D site. no discharge noted at this site. NEUROLOGICAL: Awake and alert. Cranial nerves II through XII intact. No focal neurological deficits. Normal speech. Pt update on day of discharge Please see progress note from day of discharge for further information. Update. Dealt with case management over the fall they stated that they will cover Eliquis but only 5 mg tablets and they will give amount of tablets needed for the month to cover for the 10 mg tablets for 7 days. Hospital Course Mr. Doran is a 51-year-old male with a history of left lower leg traumatic injury status post multiple reconstructive surgery who presented to the emergency department on 04/26/2017 due to worsening right ankle swelling and pain. Patient recently underwent I&D of the right leg abscess. In the emergency department on 04/26/2017, ultrasound shows right lower extremity DVT. - Right upper extremity DVT - History of DVT, PE - Patient started on apixaban 10 mg twice a day for 7 days and then 5 mg twice a day. Dealt with case management and they will cover 5 mg tablets. - Since patient has a history of DVT, PE we'll plan on continuing anticoagulation indefinitely. Patient stated he understands. He stated that the only reason why he got off of anticoagulation was because he was dealing with a lot of home issues and stated that he knew he had to stay on it. - Right lower leg abscess - Chronic left lower ext wound - s/p multiple reconstructive surgeries. - Status post I&D 2 days ago. Patient has no fever or chills. No leukocytosis. - Patient was treated with vancomycin but wound at the moment shows no sign of cellulitis with post inflammatory changes from I&D. -Will switch to Bactrim. And discontinue vancomycin. - Pre-diabetes - HbA1C was 5.8 or 5.9. Education on diet. - Mild NICOLAS - Creatinine 1.23 and now back to baseline. - Tobacco abuse - Counselled patient regarding tobacco cessation. Pt Condition on Discharge: Good Discharge Disposition: Discharge Home Discharge Time: > 30 minutes Discharge Instructions DIET: Follow Instructions for: Diabetic Diet Activities you can perform: Regular-No Restrictions Follow up Referrals: PCP Follow-up - 3-5 Days New Medications: Apixaban (Eliquis) 5 Mg Tab 5 MG PO BID for Blood Clot Prevention, #66 TAB 0 Refills take 10 mg (2 tabs) twice a day for 6 day then you will take 5 mg (1 tab) twice a day. Sulfamethoxazole-Trimethoprim (Sulfamethoxazole-Trimethoprim) 800-160 Mg Tab 1 TAB PO Q12HR for infection, #10 TAB 0 Refills Continued Medications: Levofloxacin (Levofloxacin) 750 Mg Tablet 750 MG PO DAILY for Infection, #14 TAB 0 Refills Oxycodone-Acetaminophen (Percocet) 7.5-325 mg Tab 1 TAB PO Q6H PRN for PAIN, #20 TAB 0 Refills Malgorzata Heaton MD Apr 27, 2017 14:09
[2017-04-27] MEDS ORDERED: PERC5TAB12 PO (15:53)
[2017-04-27 16:10] VITALS: BP 133/64; PULSE 80; RESP 16; TEMP 97.7; O2SAT 100
[2017-04-27 17:06] VITALS: BP 139/90; PULSE 73; RESP 16; TEMP 96.7; O2SAT 99
--- NOTE | 2017-04-27 18:00 | PD.WCN.NOT ---
Wound Consult Description: Consult received for wound management of bilateral lower extremities from Doctor Eve Angela Communicated with: PATRICIA Wolff and Call placed to Doctor Sudarshan for orders Recommendation: Please cleanse wound to L medial knee with normal saline or wound cleanser and pack wound with iodoform packing strip 1/4 inch and cover with dry 4x4 gauze, secured with rolled gauze and tape. Please change daily Cleanse wound to L anterior garcia with normal saline or wound cleanser and apply optifoam AG non adhesive over wound bed and secure with rolled gauze and tape. Change dressing every 3 days or PRN if saturated or dislodged. Additional Information: Patient seen on for evaluation of bilateral lower leg wound management. Patient has wound to L anterior garcia open to air. L leg is noted with history of traumatic injury and multiple reconstructive surgeries.L leg presents with diffuse scabs. Wound to L medial knee is noted with packing strip in wound bed with no cover dressing in place. Wound bed to L garcia presents ~80% red tissue and ~20% yellow tissue. Wound measures 5 cm x 3cm x ~0.1cm.Periwound with dry intact skin that presents with discoloration and scar tissue. Cleansed wound with normal saline and applied optifoam non adhesive dressing over wound bed and secured with rolled gauze and tape. Removed packing strip in place to L medial knee to reveal wound with 80% red clean tissue and ~20% white tissue.Wound measures 1.8cm x 1 cm x ~1cm. Wound has minimal sanguinous drainage without odor. Appears to have had recent I&D. Cleansed wound with normal saline and applied iodoform 1/4 inch packing strip packed into wound bed and covered with dry 4x4 gauze pad secured with rolled gauze and tape. Patient is homeless, but has has a friend that can help him with dressing changes until he can be seen by a wound care center.Gave patient extra supplies for dressing changes. Faith Dumont [facility] Apr 27, 2017 18:00
[2017-04-28] MEDS ORDERED: PHARMACY ORDERED LAB ONE (04:45)
== END 2017-04-27 19:02 | disposition home or self-care (01) ==
LOC: NEPK 09:38 → NEDA 12:15 → N06B 13:34
PROVIDERS: ADMIT Family Medicine; ATTEND Family Medicine
DX: I82.621 Acute embolism and thrombosis of deep veins of right upper extremity (principal); L02.415 Cutaneous abscess of right lower limb; S81.802A Unspecified open wound, left lower leg, initial encounter; N17.9 Acute kidney failure, unspecified; F17.210 Nicotine dependence, cigarettes, uncomplicated; R73.03 Prediabetes; Z86.711 Personal history of pulmonary embolism; Z79.01 Long term (current) use of anticoagulants; Z79.2 Long term (current) use of antibiotics; Z86.14 Personal history of Methicillin resistant Staphylococcus aureus infection; Z59.0 Homelessness
CPT/HCPCS: 73590; 80048; 80053; 85025; 85610; 85730; 86403; 87070; 87205; 93971; 96361; 96365; 96366; 99285; G0378; J3370; J7030; J7050

== ENCOUNTER 2017-04-28 11:01 | Emergency (ER) | payer MEDICAID ==
[~2017-04-28 11:01] MED LIST changes: +APIX5TAB PO; +PERC5TAB12 PO; +SULF1TAB23 PO
[2017-04-28 11:03] VITALS: BP 140/82; PULSE 109; RESP 16; TEMP 97.9; O2SAT 97
--- NOTE | 2017-04-28 11:12 | PD ---
Physical Exam Time Seen by Provider: 11:09 Narrative 52yo M c/o redness to an a abscess to his R garcia s/p I&D. +vomiting. He was dc 's yesterday for same complait. He filled his antibx and have not picked them up yet. I saw this patient the other day and there was no redness to the abscess site when i removed the iodoform drainage. Jonnie fever. Patient seen in triage. VS reviewed. Patient awaiting bed placement. Data Data Last Documented VS Vital Signs Date Time Temp Pulse Resp B/P (MAP) Pulse Ox O2 Delivery O2 Flow Rate FiO2 04/28/17 11:03 97.9 109 16 140/82 (101) 97 MDM Supervised Visit with CHRISTIANA: Niki Aleman Apr 28, 2017 11:12
[2017-04-28 12:39] VITALS: BP 135/85; PULSE 78; RESP 16; TEMP 98.2; O2SAT 100
--- NOTE | 2017-04-28 13:23 | PD ---
HPI Chief Complaint: Skin Problem Time Seen by Provider: 12:59 Travel History International Travel<30 days: No Contact w/Intl Traveler<30days: No Traveled to known affect area: No History of Present Illness HPI 52-year-old male came to the emergency room with history of right leg swelling and pain. Patient says that he was diagnosed with DVT recently and was discharged from the hospital yesterday. He was given a prescription for Eliquis an antibiotic. He dropped the prescription at the pharmacy and has to going to get up but came here after that because of the pain. Vital signs are stable. I had actually seen this patient 2 weeks ago for a left lower extremity swelling, redness and purulent discharge. He was admitted for a few days, seen by orthopedics and antibiotic was started. His culture grew polymicrobial substance. He got admitted again 2 days ago for right leg swelling and possible abscess. However the wound culture so far has not grown anything. Ultrasound showed DVT. Patient was discharged yesterday. Patient is a homeless and on his feet most of the time of the day. Denies any fever or chills. PFSH Past Medical History Narrative Medical List of his past medical, surgical, social and family history is reviewed from the nursing note. Hx Anticoagulant Therapy: Yes (WARFARIN) Depression: Yes Cancer: No Cardiovascular Problems: Yes (HTN) Diminished Hearing: No Deep Vein Thrombosis: Yes (2013) Endocrine: No Genitourinary: No Hypertension: Yes Immune Disorder: No Implanted Vascular Access Dvce: Yes (ivc filter in 2013) Musculoskeletal: No Neurologic: Yes (Paresthesia in left lower leg.) Psychiatric: Yes Respiratory: No Integumentary: Yes (HX MRSA) Immunizations Current: Yes Tetanus Vaccination: > 5 Years Influenza Vaccination: No Past Surgical History Body Medical Devices: IVC FILTER AND HI IN THE LEFT LEG Other Surgery: Yes Social History Alcohol Use: No (denies) Tobacco Use: Yes (1 pack every 3 days) Substance Use: No (pt denies ) Allergies-Medications (Allergen,Severity, Reaction): Coded Allergies: No Known Allergies (Unverified , 04/28/17) Comments List of his past medical, surgical, social and family history is reviewed from the nursing note. Reported Meds & Prescriptions Reported Meds & Active Scripts Active Eliquis (Apixaban) 5 Mg Tab 5 Mg PO BID take 10 mg (2 tabs) twice a day for 6 day then you will take 5 mg (1 tab) twice a day. Sulfamethoxazole-Trimethoprim 800-160 Mg Tab 1 Tab PO Q12HR Percocet (Oxycodone-Acetaminophen) 7.5-325 mg Tab 1 Tab PO Q6H PRN Levofloxacin 750 Mg Tablet 750 Mg PO DAILY Narrative Medication List of his low medications reviewed from the nursing note. Review of Systems Except as stated in HPI: all other systems reviewed are Neg Physical Exam Narrative GENERAL: Awake, alert, no obvious distress SKIN: Focused skin assessment warm/dry. Right leg is swollen along with the ankle in the feet. There is a hypertrophic left lower extremity area. He is tender to touch everywhere. Distal pulses and sensation intact HEAD: Atraumatic. Normocephalic. EYES: Pupils equal and round. No scleral icterus. No injection or drainage. ENT: No nasal bleeding or discharge. Mucous membranes pink and moist. NECK: Trachea midline. No JVD. CARDIOVASCULAR: Regular rate and rhythm. No murmur appreciated. RESPIRATORY: No accessory muscle use. Clear to auscultation. Breath sounds equal bilaterally. GASTROINTESTINAL: Abdomen soft, non-tender, nondistended. Hepatic and splenic margins not palpable. MUSCULOSKELETAL: No obvious deformities. No clubbing. No cyanosis. No edema. NEUROLOGICAL: Awake and alert. No obvious cranial nerve deficits. Motor grossly within normal limits. Normal speech. PSYCHIATRIC: Appropriate mood and affect; insight and judgment normal. Data Data Last Documented VS Vital Signs Date Time Temp Pulse Resp B/P (MAP) Pulse Ox O2 Delivery O2 Flow Rate FiO2 04/28/17 13:36 97.8 72 16 132/81 (98) 99 04/28/17 12:39 Room Air Orders Orders Acetamin-Hydrocod 325-5 Mg ([place] 5-325 (04/28/17 13:30) [facility] Medical Decision Making Medical Screen Exam Complete: Yes Emergency Medical Condition: Yes Medical Record Reviewed: Yes Differential Diagnosis DVT, dependent edema, leg pain Narrative Course 1:30 PM patient was given instructions to take his medications up and start taking them as soon as possible. Patient understands. Given his past results when the wound on the right leg was strained that did not grow any bacteria. I' m comfortable discharging this patient. I've explained to him his pain is mostly from the DVT and from dependent edema. He will be given one dose of hydrocodone and then has to keep his leg elevated and wear compression stockings along with taking his medications. Procedures EKG Prior to Arrival: No Diagnosis Primary Impression: Right leg DVT Qualified Codes: I82.431 - Acute embolism and thrombosis of right popliteal vein Additional Impressions: Dependent edema Leg pain Qualified Codes: M79.604 - Pain in right leg Referrals: Primary Care Physician Additional Instructions: Please get the prescriptions filled for your DVT medications and start taking them as soon as possible. He should keep the leg elevated as much as possible to keep the swelling down. Wearing compression stockings would be helpful to keep the swelling down as well. Return to the ER if the condition worsens or any other new concerns. Med/Other Pt SpecificInfo: No Change to Meds Disposition: 01 DISCHARGE HOME Condition: Stable Zachery Andrade MD Apr 28, 2017 13:23
[2017-04-28] MEDS ORDERED: ACETAMINOPHEN/HYDROcodone 325 MG/5 MG TAB PO ONE (13:30)
[2017-04-28 13:36] VITALS: BP 132/81; TEMP 97.8
== END 2017-04-28 13:35 | disposition home or self-care (01) ==
LOC: NEPD 11:01
DX: I82.431 Acute embolism and thrombosis of right popliteal vein (principal); I10 Essential (primary) hypertension; F32.9 Major depressive disorder, single episode, unspecified; Z79.01 Long term (current) use of anticoagulants; Z59.0 Homelessness; Z86.718 Personal history of other venous thrombosis and embolism; Z79.899 Other long term (current) drug therapy
CPT/HCPCS: 99282

== ENCOUNTER 2017-05-05 11:07 | Emergency (ER) | payer MEDICAID ==
[~2017-05-05] VITALS: Ht 185.4 cm; Wt 102.0 kg
[~2017-05-05 11:07] MED LIST changes: -PERC5TAB12 PO
[2017-05-05 11:08] VITALS: BP 153/91; PULSE 88; RESP 16; TEMP 98.4; O2SAT 99
--- NOTE | 2017-05-05 11:39 | PD ---
HPI Chief Complaint: Wound/Suture/Staple Re-Check Time Seen by Provider: 11:39 Travel History International Travel<30 days: No Contact w/Intl Traveler<30days: No Traveled to known affect area: No History of Present Illness HPI 52-year-old male presents to emergency department requesting dressing change of chronic wounds to his left lower leg. He said the dressings were last changed on May 02 although the dressings are dated April 27. He is trying to get in with wound care, but states his referral has not been received and they will not see him. He denies fever, vomiting. Denies paresthesias, loss of sensation , decreased range of motion, decreased strength to the affected extremity. Was just recently discharged from the hospital for DVT to the right lower extremity and is currently taking Xarelto. Said he was given antibiotics and finished the prescription. Symptoms are mild in severity. He has no other medical complaints. No known allergies. No other modifying factors or associated signs and symptoms. PFSH Past Medical History Hx Anticoagulant Therapy: Yes (WARFARIN) Depression: Yes Cancer: No Cardiovascular Problems: Yes (HTN) Diminished Hearing: No Deep Vein Thrombosis: Yes (2013) Endocrine: No Genitourinary: No Hypertension: Yes Immune Disorder: No Implanted Vascular Access Dvce: Yes (ivc filter in 2013) Musculoskeletal: No Neurologic: Yes (Paresthesia in left lower leg.) Psychiatric: Yes Respiratory: No Integumentary: Yes (HX MRSA) Immunizations Current: Yes ?: Not Past Surgical History Body Medical Devices: IVC FILTER AND HI IN THE LEFT LEG Other Surgery: Yes Social History Alcohol Use: No (denies) Tobacco Use: Yes (1 pack every 3 days) Substance Use: No (pt denies ) Allergies-Medications (Allergen,Severity, Reaction): Coded Allergies: No Known Allergies (Unverified , 05/05/17) Reported Meds & Prescriptions Reported Meds & Active Scripts Active Eliquis (Apixaban) 5 Mg Tab 5 Mg PO BID take 10 mg (2 tabs) twice a day for 6 day then you will take 5 mg (1 tab) twice a day. Sulfamethoxazole-Trimethoprim 800-160 Mg Tab 1 Tab PO Q12HR Percocet (Oxycodone-Acetaminophen) 7.5-325 mg Tab 1 Tab PO Q6H PRN Levofloxacin 750 Mg Tablet 750 Mg PO DAILY Review of Systems Except as stated in HPI: all other systems reviewed are Neg Physical Exam Narrative GENERAL: Well-nourished, well-developed male patient, in no acute distress; disheveled; afebrile, nontoxic-appearing SKIN: Warm and dry. Left garcia with a superficial wound that measures approximately 5.5 cm x 3 cm; without any surrounding erythema or drainage. Left upper medial garcia area, just below the knee with approximately 2 cm deep wound with iodoform packing intact and minimal amount of purulent drainage; without surrounding erythema. Left lower leg is post reconstructive surgery and multiple skin grafts. Left lower extremities are supple and non-tense with 2+ pedal pulses and sensory intact. HEAD: Atraumatic. Normocephalic. EYES: Pupils equal and round. No scleral icterus. No injection or drainage. ENT: Mucosa pink and moist. Airway patent. NECK: Trachea midline. CARDIOVASCULAR: Regular rate. RESPIRATORY: No accessory muscle use. GASTROINTESTINAL: Rounded. MUSCULOSKELETAL: No obvious deformities. No clubbing. No cyanosis. No edema. NEUROLOGICAL: Awake and alert. Oriented 3. No obvious cranial nerve deficits. Motor grossly within normal limits. Normal speech. PSYCHIATRIC: Appropriate mood and affect; insight and judgment normal. Data Data Last Documented VS Vital Signs Date Time Temp Pulse Resp B/P (MAP) Pulse Ox O2 Delivery O2 Flow Rate FiO2 05/05/17 11:08 98.4 88 16 153/91 (111) 99 MDM Medical Decision Making Medical Screen Exam Complete: Yes Emergency Medical Condition: Yes Medical Record Reviewed: Yes Differential Diagnosis Wound recheck, dressing change, medical clearance Narrative Course This is a 52-year-old male who presents for wound recheck and dressing change of his left lower leg. He is been seen here previously multiple times. He was recently diagnosed with right lower leg DVT and is currently taking Xarelto. I removed the iodoform packing and repacked the wound to the left upper garcia. A Tegaderm was placed over the wounds to the left medial garcia. Patient tolerated well. LEft lower extremity is supple and non-tense with 2+ pedal pulses and sensory intact. He says he will follow-up with [facility] for referral to wound care. Instructed patient to follow up with primary care provider. Patient verbalizes understanding and agreement with treatment plan. Patient is medically cleared and stable for discharge. Discussed reasons to return to the emergency department. Patient agrees with treatment plan. The patients vital signs are stable and the patient is stable for outpatient follow-up and treatment. Patient discharged home, stable and in no acute distress. Diagnosis Primary Impression: Encounter for wound re-check Additional Impression: Encounter for change of dressing Referrals: [facility] Primary Care Physician Patient Instructions: Chronic Wound Care (DC), General Instructions Additional Instructions: Follow-up with wound care Follow up with [facility] clinic Follow-up with primary care provider Return to the emergency department immediately if worsening of symptoms Med/Other Pt SpecificInfo: No Change to Meds, No Meds Exist/No RX given Disposition: 01 DISCHARGE HOME Condition: Stable Niki Godinez May 05, 2017 11:39
== END 2017-05-05 12:25 | disposition home or self-care (01) ==
LOC: NEPK 11:07
DX: Z51.89 Encounter for other specified aftercare (principal); F32.9 Major depressive disorder, single episode, unspecified; I10 Essential (primary) hypertension; R20.9 Unspecified disturbances of skin sensation; F17.200 Nicotine dependence, unspecified, uncomplicated; Z86.718 Personal history of other venous thrombosis and embolism; Z79.899 Other long term (current) drug therapy
CPT/HCPCS: 99281

== ENCOUNTER 2017-06-06 18:35 | Inpatient (IN) | payer MEDICAID ==
[~2017-06-06] VITALS: Ht 185.4 cm; Wt 98.0 kg
[2017-06-06 18:47] VITALS: BP 126/77; PULSE 105; RESP 26; TEMP 100.3; O2SAT 100
[2017-06-06] MEDS ORDERED: VANCOMYCIN INJ 1,000 MG in SODIUM CHLOR 0.9% 250 ML INJ 250 ML IV STA (19:04)
[2017-06-06] MEDS ORDERED: PIPERACIL-TAZO 4.5 GM PREMIX 100 ML IV STA (19:04)
[2017-06-06] MEDS ORDERED: SODIUM CHLOR 0.9% 1000 ML INJ 1,000 ML IV ONE ×3 (19:04)
--- NOTE | 2017-06-06 19:14 | PD ---
HPI Chief Complaint: Fever Time Seen by Provider: 18:59 Travel History International Travel<30 days: No Contact w/Intl Traveler<30days: No Traveled to known affect area: No History of Present Illness HPI The patient is a 52-year-old male who presents to the emergency department for left leg pain. The patient has a history of previous surgery to left lower extremity that was performed by an orthopedic surgeon in [place]. The patient states she was hospitalized for 8 months and lost his house, his dog , and all his belongings. The patient made to [place] but is currently homeless. The patient states he was recently diagnosed with a DVT left lower extremity, was prescribed medication, however, is been noncompliant with his anticoagulants. The patient notes increasing pain to the left leg with increasing erythema as well as an ulcer lateral aspect left ankle where he states he has a "screw located ". The patient states he has been self- medicating with alcohol and crack to help his pain and is requesting pain medications. He does note subjective fevers as well as increasing pain in the left lower extremity with decreased mobility. Symptoms are moderate, exacerbated by previous surgery and infectious to left lower extremity, and minimally alleviated with alcohol and crack cocaine. PFSH Past Medical History Hx Anticoagulant Therapy: Yes (WARFARIN) Depression: Yes Cancer: No Cardiovascular Problems: Yes (HTN) Diminished Hearing: No Deep Vein Thrombosis: Yes (2013) Endocrine: No Genitourinary: No Hypertension: Yes Immune Disorder: No Implanted Vascular Access Dvce: Yes (ivc filter in 2012) Musculoskeletal: No Neurologic: Yes (Paresthesia in left lower leg.) Psychiatric: Yes Respiratory: No Integumentary: Yes (HX MRSA) Immunizations Current: Yes Past Surgical History Body Medical Devices: IVC FILTER AND HI IN THE LEFT LEG Other Surgery: Yes (FILTER) Social History Alcohol Use: Yes (one beer today) Tobacco Use: Yes (1 pack every 3 days) Substance Use: Yes (CRACK) Allergies-Medications (Allergen,Severity, Reaction): Coded Allergies: No Known Allergies (Unverified , 06/06/17) Reported Meds & Prescriptions Reported Meds & Active Scripts Active No Active Prescriptions or Reported Medications Review of Systems Except as stated in HPI: all other systems reviewed are Neg General / Constitutional: Positive: Fever Cardiovascular: No: Chest Pain or Discomfort Respiratory: No: Shortness of Breath Gastrointestinal: No: Nausea, Vomiting, Abdominal Pain Musculoskeletal: Positive: Edema, Pain Skin: Positive Other (as noted in the history of present illness) Psychiatric: Positive: Substance Abuse Physical Exam Narrative GENERAL: 52-year-old male who appears disheveled. SKIN: The left lower extremity is erythematous with chronic scars and skin changes from previous surgery. Open ulcer approximately 1.5 cm in length over the lateral malleolus with exquisite tenderness. HEAD: Atraumatic. Normocephalic. EYES: Minimal injection bilateral. ENT: No nasal bleeding or discharge. Poor dentition. NECK: Trachea midline. No JVD. CARDIOVASCULAR: Regular, tachycardic with a heart rate 110. RESPIRATORY: No accessory muscle use. Clear to auscultation. Breath sounds equal bilaterally. GASTROINTESTINAL: Abdomen soft, non-tender, nondistended. No rebound tenderness. MUSCULOSKELETAL: The left lower extremity has erythema from the knee inferiorly down to the lateral medial malleus. Scars noted from previous operative management. Ulceration over the lateral malleus and measures 1.5 cm in diameter. Positive dorsalis pedal pulse and femoral pulse. Erythema and edema left leg noted. NEUROLOGICAL: Awake and alert. No obvious cranial nerve deficits. Motor grossly within normal limits. Normal speech. Nonfocal. PSYCHIATRIC: Appropriate mood and affect; insight and judgment normal. Data Data Last Documented VS Vital Signs Date Time Temp Pulse Resp B/P (MAP) Pulse Ox O2 Delivery O2 Flow Rate FiO2 06/06/17 20:36 100.9 85 20 99 Room Air 06/06/17 18:47 126/77 (93) Orders Orders Electrocardiogram (06/06/17 19:04) Complete Blood Count With Diff (06/06/17 19:04) Comprehensive Metabolic Panel (06/06/17 19:04) Prothrombin Time / Inr (Pt) (06/06/17 19:04) Act Partial Throm Time (Ptt) (06/06/17 19:04) Lactic Acid Sepsis Protocol (06/06/17 19:04) Ckmb (Isoenzyme) Profile (06/06/17 19:04) Urinalysis - C+S If Indicated (06/06/17 19:04) Blood Culture (06/06/17 19:04) Chest, Single Ap (06/06/17 19:04) Blood Glucose (06/06/17 19:04) Ecg Monitoring (06/06/17 19:04) Iv Access Insert/Monitor (06/06/17 19:04) Oximetry (06/06/17 19:04) Oxygen Administration (06/06/17 19:04) Acetaminophen (Tylenol) (06/06/17 19:15) Ondansetron Inj (Zofran Inj) (06/06/17 19:15) Piperacil-Tazo 4.5 Gm Premix (Zosyn 4.5 (06/06/17 19:04) Vancomycin Inj (Vancomycin Inj) (06/06/17 19:04) Sodium Chlor 0.9% 1000 Ml Inj (Ns 1000 M (06/06/17 19:04) Sodium Chlor 0.9% 1000 Ml Inj (Ns 1000 M (06/06/17 19:04) Sodium Chlor 0.9% 1000 Ml Inj (Ns 1000 M (06/06/17 19:04) Morphine Inj (Morphine Inj) (06/06/17 19:15) Tibia/Fibula (Ap/Lat) (06/06/17 ) Alcohol (Ethanol) (06/06/17 19:04) Drug Screen, Random Urine (06/06/17 19:04) CKMB (06/06/17 19:10) CKMB% (06/06/17 19:10) Admit Order (Ed Use Only) (06/06/17 20:39) Labs Laboratory Tests Test 06/06/17 19:10 White Blood Count 13.7 TH/MM3 Red Blood Count 4.03 MIL/MM3 Hemoglobin 12.2 GM/DL Hematocrit 36.4 % Mean Corpuscular Volume 90.3 FL Mean Corpuscular Hemoglobin 30.3 PG Mean Corpuscular Hemoglobin Concent 33.5 % Red Cell Distribution Width 14.2 % Platelet Count 223 TH/MM3 Mean Platelet Volume 7.5 FL Neutrophils (%) (Auto) 86.6 % Lymphocytes (%) (Auto) 5.3 % Monocytes (%) (Auto) 7.8 % Eosinophils (%) (Auto) 0.0 % Basophils (%) (Auto) 0.3 % Neutrophils # (Auto) 11.9 TH/MM3 Lymphocytes # (Auto) 0.7 TH/MM3 Monocytes # (Auto) 1.1 TH/MM3 Eosinophils # (Auto) 0.0 TH/MM3 Basophils # (Auto) 0.0 TH/MM3 CBC Comment DIFF FINAL Differential Comment Prothrombin Time 11.5 SEC Prothromb Time International Ratio 1.0 RATIO Activated Partial Thromboplast Time 25.7 SEC Blood Urea Nitrogen 15 MG/DL Creatinine 1.48 MG/DL Random Glucose 110 MG/DL Total Protein 7.0 GM/DL Albumin 3.3 GM/DL Calcium Level 8.3 MG/DL Alkaline Phosphatase 78 U/L Aspartate Amino Transf (AST/SGOT) 16 U/L Alanine Aminotransferase (ALT/SGPT) 14 U/L Total Bilirubin 0.5 MG/DL Sodium Level 133 MEQ/L Potassium Level 3.6 MEQ/L Chloride Level 101 MEQ/L Carbon Dioxide Level 21.5 MEQ/L Anion Gap 11 MEQ/L Estimat Glomerular Filtration Rate 50 ML/MIN Lactic Acid Level 3.5 mmol/L Total Creatine Kinase 166 U/L Ethyl Alcohol Level LESS THAN 3 MG/DL MDM Medical Decision Making Medical Screen Exam Complete: Yes Emergency Medical Condition: Yes Medical Record Reviewed: Yes Interpretation(s) Laboratory Tests Test 06/06/17 19:10 White Blood Count 13.7 TH/MM3 Red Blood Count 4.03 MIL/MM3 Hemoglobin 12.2 GM/DL Hematocrit 36.4 % Mean Corpuscular Volume 90.3 FL Mean Corpuscular Hemoglobin 30.3 PG Mean Corpuscular Hemoglobin Concent 33.5 % Red Cell Distribution Width 14.2 % Platelet Count 223 TH/MM3 Mean Platelet Volume 7.5 FL Neutrophils (%) (Auto) 86.6 % Lymphocytes (%) (Auto) 5.3 % Monocytes (%) (Auto) 7.8 % Eosinophils (%) (Auto) 0.0 % Basophils (%) (Auto) 0.3 % Neutrophils # (Auto) 11.9 TH/MM3 Lymphocytes # (Auto) 0.7 TH/MM3 Monocytes # (Auto) 1.1 TH/MM3 Eosinophils # (Auto) 0.0 TH/MM3 Basophils # (Auto) 0.0 TH/MM3 CBC Comment DIFF FINAL Differential Comment Prothrombin Time 11.5 SEC Prothromb Time International Ratio 1.0 RATIO Activated Partial Thromboplast Time 25.7 SEC Blood Urea Nitrogen 15 MG/DL Creatinine 1.48 MG/DL Random Glucose 110 MG/DL Total Protein 7.0 GM/DL Albumin 3.3 GM/DL Calcium Level 8.3 MG/DL Alkaline Phosphatase 78 U/L Aspartate Amino Transf (AST/SGOT) 16 U/L Alanine Aminotransferase (ALT/SGPT) 14 U/L Total Bilirubin 0.5 MG/DL Sodium Level 133 MEQ/L Potassium Level 3.6 MEQ/L Chloride Level 101 MEQ/L Carbon Dioxide Level 21.5 MEQ/L Anion Gap 11 MEQ/L Estimat Glomerular Filtration Rate 50 ML/MIN Lactic Acid Level 3.5 mmol/L Total Creatine Kinase 166 U/L Ethyl Alcohol Level LESS THAN 3 MG/DL Differential Diagnosis Differential diagnosis includes cellulitis, osteomyelitis, infected wound, DVT, noncompliance, infected hardware. Narrative Course IV was established, labs are drawn and sent, and the patient was placed on cardiac telemetry monitoring and continuous pulse oximetry monitoring. X-ray left tibia-fibula were obtained. Lactic acid blood cultures were sent to lab. The patient was administered Zosyn, vancomycin, IV fluids, morphine, and Zofran. I reviewed the patient's EMR, he had a previous ultrasound left lower extremity and x-ray the left lower extremity one month ago, ultrasound did reveal acute and chronic thrombus in the left lower extremity. The patient's white count is 13 7, lactic acid is elevated 3.5, heart rate was greater than 90 , consistent with sepsis criteria. The patient was administered Zosyn and vancomycin for the left lower extremity cellulitis. He does have a history of DVT and has been noncompliant, he will need anticoagulation. The on-call medical service was paged for admission. Sepsis Criteria SIRS Criteria (2 or more): Heart rate over 90, RR > 20 or PaCO2 < 32, WBC > 49017, < 4000 or > 10% bands Sepsis Criteria (SIRS+source): Infect source susp/known Severe Sepsis (+one): Lactate >2 Criteria Outcome: Meets severe sepsis criteria Physician Communication Physician Communication The on-call medical service was paged for admission. I discussed the patient with Dr. Garcias who agrees with admission to Dr. La. Diagnosis Primary Impression: Sepsis affecting skin Additional Impression: Left leg cellulitis Admitting Information Admitting Physician Requests: Admit Scripts No Active Prescriptions or Reported Meds Condition: Stable Giuseppe Moya MD Jun 06, 2017 19:13
[2017-06-06] MEDS ORDERED: ONDANSETRON HCL 4 MG/2 ML VIAL IV PUSH ONE (19:15)
[2017-06-06] MEDS ORDERED: ACETAMINOPHEN 325 MG TAB PO ONE (19:15)
[2017-06-06] MEDS ORDERED: MORPHINE SULFATE 4 MG/ML INJ IV PUSH ONE (19:15)
[2017-06-06 20:12] LABS: APTT (PATIENT) 25.7 SEC (24.3-30.1); PROTHROMBIN TIME - PATIENT 11.5 SEC (9.8-11.6)
[2017-06-06 20:15] LABS: AUTOMATED NEUTROPHIL # 11.9 TH/MM3 (1.8-7.7); BASOPHIL % 0.3 % (0.0-2.0); HEMATOCRIT 36.4 % (39.0-51.0); HEMO FLAGS DIFF FINAL; LYMPH % 5.3 % (9.0-44.0); LYMPHOCYTE # 0.7 TH/MM3 (1.0-4.8); MEAN CELL VOLUME 90.3 FL (80.0-100.0); MEAN CORPUSCULAR HEMOGLOBIN 30.3 PG (27.0-34.0); MEAN CORPUSCULAR HGB CONC 33.5 % (32.0-36.0); MONO % 7.8 % (0.0-8.0); NEUT % 86.6 % (16.0-70.0); PLATELET COUNT 223 TH/MM3 (150-450); RED BLOOD COUNT 4.03 MIL/MM3 (4.50-5.90); RED CELL DISTRIBUTION WIDTH 14.2 % (11.6-17.2); WHITE BLOOD COUNT 13.7 TH/MM3 (4.0-11.0)
[2017-06-06 20:18] LABS: ANION GAP 11 MEQ/L (5-15); AST (GOT) 16 U/L (15-37); BICARBONATE 21.5 MEQ/L (21.0-32.0); BLOOD UREA NITROGEN 15 MG/DL (7-18); CHLORIDE 101 MEQ/L (98-107); GLOMERULAR FILTRATION RATE 50 ML/MIN (>89); POTASSIUM 3.6 MEQ/L (3.5-5.1); SODIUM (NA) 133 MEQ/L (136-145)
[2017-06-06 20:20] LABS: ALT (GPT) 14 U/L (12-78)
[2017-06-06 20:22] LABS: ALKALINE PHOSPHATASE 78 U/L (45-117); CREATINE KINASE 166 U/L (39-308); TOTAL BILIRUBIN ADULT 0.5 MG/DL (0.2-1.0)
[2017-06-06 20:25] LABS: ALCOHOL LESS THAN 3 MG/DL (0-5)
[2017-06-06 20:36] VITALS: BP 100/62; PULSE 85; RESP 20; TEMP 100.9; O2SAT 99
[2017-06-06] MEDS ORDERED: SODIUM CHLORIDE 0.9% FLUSH 10 ML FLUSH IV FLUSH PRN (20:45)
--- NOTE | 2017-06-06 20:45 | RADRPT ---
EXAM DATE/TIME: 06/06/2017 20:12 [facility] COMPARISON: TIBIA/FIBULA LEFT (AP/LAT), April 13, 2017, 10:02. INDICATIONS : Infection in left leg. MEDICAL HISTORY : Diabetes mellitus type II. SURGICAL HISTORY : None. ENCOUNTER: Initial ACUITY: 2 days PAIN SCORE: 4/10 LOCATION: Left tib fib FINDINGS: There is a stable chronic deformity of the distal femur and proximal tibia. Retrograde intramedullary ramírez fixation of the distal tibia identified. Numerous campbell are identified within the soft tissues . There is soft tissue swelling seen anterior to the proximal tibia which is actually decreased from the previous study. CONCLUSION: Decreased soft tissue swelling. Stable chronic appearing deformities of the leg. Patricio Jenkins MD on June 06, 2017 at 20:43 Board Certified Radiologist. This report was verified electronically.
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
[2017-06-06] MEDS: SODIUM CHLORIDE 0.9% FLUSH 10 ML FLUSH IV FLUSH SCH (21:00)
--- NOTE | 2017-06-06 21:01 | RADRPT ---
EXAM DATE/TIME: 06/06/2017 20:09 [facility] COMPARISON: No previous studies available for comparison. INDICATIONS : fever. MEDICAL HISTORY : Diabetes mellitus type II. SURGICAL HISTORY : None. ENCOUNTER: Initial ACUITY: 1 day PAIN SCORE: 0/10 LOCATION: Bilateral chest FINDINGS: A single view of the chest demonstrates the lungs to be symmetrically aerated without evidence of mas s, infiltrate or effusion. The cardiomediastinal contours are unremarkable. Osseous structures are intact. CONCLUSION: No acute disease. Patricio Jenkins MD on June 06, 2017 at 21:00 Board Certified Radiologist. This report was verified electronically.
[2017-06-06 21:13] LABS: BLOOD, URINE NEG (NEG); GLUCOSE,URINE NEG (NEG); HYALINE CAST, URINE 1 /lpf (RARE); KETONE, URINE NEG (NEG); MUCUS URINE FEW /lpf (OCC); NITRITE,URINE NEG (NEG); PH, URINE 8.5 (5.0-8.5); SQUAMOUS EPITHELIAL CELL URINE <1 /hpf (0-5); URINE COLOR YELLOW (YELLW/STRAW)
[2017-06-06] MEDS ORDERED: NALOXONE HCL 0.4 MG/ML AMP IV PUSH PRN ×2 (21:15→22:00)
[2017-06-06] MEDS ORDERED: ACETAMINOPHEN 325 MG TAB PO PRN (21:15)
[2017-06-06] MEDS ORDERED: APIX5TAB PO (21:15)
[2017-06-06] MEDS ORDERED: ACETAMINOPHEN/HYDROcodone 325 MG/7.5 MG TAB PO PRN (21:15)
[2017-06-06 21:27] LABS: COMMENT (UR) CATH-CULT NOT IND; CULTURE IF INDICATED CATH CULTURE NOT IND
[2017-06-06 21:44] LABS: LACTIC ACID GHOST NOT REPORTABLE
[2017-06-06] MEDS: MORPHINE SULFATE 4 MG/ML INJ IV PUSH PRN (21:46)
[2017-06-06] MEDS ORDERED: LACTULOSE SYRUP 20 GM/30 ML CUP PO PRN (22:00)
[2017-06-06] MEDS: DOCUSATE SODIUM 50 MG/SENNA 8.6 MG TAB PO SCH (22:00)
[2017-06-06] MEDS ORDERED: SENNOSIDES 8.6 MG TAB PO PRN (22:00)
[2017-06-06] MEDS ORDERED: Vancomycin Consult Pharmacy 1 EA OTHER SCH ×2 (22:00→22:30)
[2017-06-06] MEDS ORDERED: MAGNESIUM HYDROXIDE SUSP 30 ML CUP PO PRN (22:00)
[2017-06-06] MEDS ORDERED: BISACODYL 10 MG SUPP RECTAL PRN (22:00)
[2017-06-06 22:36] VITALS: BP 119/71; PULSE 79; RESP 20; TEMP 99.7; O2SAT 95
[2017-06-06] MEDS: APIXABAN 5 MG TABLET PO SCH (22:44)
[2017-06-06] MEDS: SODIUM CHLOR 0.9% 1000 ML INJ 1,000 ML IV SCH (22:44)
[2017-06-06 22:53] VITALS: BP 119/71; TEMP 99.7
[2017-06-07] VITALS (7 sets, daily range): BP systolic 104–141; BP diastolic 64–85; PULSE 60–85; RESP 17–21; TEMP 96.9–99.9; O2SAT 95–100
[2017-06-07] MEDS: PIPERACIL-TAZO 3.375 GM PREMIX 50 ML IV SCH ×4 (00:39→17:33)
[2017-06-07] MEDS: MORPHINE SULFATE 4 MG/ML INJ IV PUSH PRN ×2 (00:39→00:51)
[2017-06-07] MEDS: SODIUM CHLOR 0.9% 1000 ML INJ 1,000 ML IV SCH ×4 (04:54→22:19)
[2017-06-07] MEDS: ACETAMINOPHEN/HYDROcodone 325 MG/10 MG TAB PO PRN ×5 (05:04→22:19)
[2017-06-07 05:22] LABS: AUTOMATED NEUTROPHIL # 8.1 TH/MM3 (1.8-7.7); BASOPHIL % 0.4 % (0.0-2.0); HEMATOCRIT 33.7 % (39.0-51.0); HEMO FLAGS DIFF FINAL; LYMPH % 9.9 % (9.0-44.0); MEAN CELL VOLUME 90.8 FL (80.0-100.0); MEAN CORPUSCULAR HEMOGLOBIN 30.6 PG (27.0-34.0); MEAN CORPUSCULAR HGB CONC 33.7 % (32.0-36.0); MONO % 6.8 % (0.0-8.0); NEUT % 82.9 % (16.0-70.0); PLATELET COUNT 180 TH/MM3 (150-450); RED BLOOD COUNT 3.71 MIL/MM3 (4.50-5.90); RED CELL DISTRIBUTION WIDTH 14.7 % (11.6-17.2); WHITE BLOOD COUNT 9.7 TH/MM3 (4.0-11.0)
[2017-06-07 05:28] LABS: CALCIUM-PROTEIN CORRECTED 8.1 MG/DL (8.5-10.1); POTASSIUM 3.6 MEQ/L (3.5-5.1); TOTAL BILIRUBIN ADULT 0.7 MG/DL (0.2-1.0)
[2017-06-07] MEDS ORDERED: VANCOMYCIN INJ 1,000 MG in SODIUM CHLOR 0.9% 250 ML INJ 250 ML IV SCH (08:00)
[2017-06-07] MEDS: NICOTINE 14 MG/24 HR PATCH T-DERMAL SCH (09:00)
[2017-06-07] MEDS: SODIUM CHLORIDE 0.9% FLUSH 10 ML FLUSH IV FLUSH SCH ×2 (09:00→19:38)
[2017-06-07] MEDS: REMOVE OLD PATCH T-DERMAL SCH (09:00)
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
[2017-06-07] MEDS: DOCUSATE SODIUM 50 MG/SENNA 8.6 MG TAB PO SCH ×2 (09:52→19:39)
[2017-06-07] MEDS: APIXABAN 5 MG TABLET PO SCH ×2 (09:52→19:39)
--- NOTE | 2017-06-07 10:06 | RADRPT ---
EXAM DATE/TIME: 06/07/2017 08:45 [facility] COMPARISON: US LEG RIGHT VENOUS DOPPLER, April 26, 2017, 10:57. INDICATIONS : Bilateral leg swelling. MEDICAL HISTORY : Hyperparathyroidism. Deep vein thrombosis. Substance use, crack. MRSA. SURGICAL HISTORY : Left leg surgery. ENCOUNTER: Subsequent ACUITY: >1 year PAIN SCORE: 10/10 LOCATION: Bilateral legs. TECHNIQUE: Venous ultrasound of the left and right leg was performed from the inguinal ligament to the proximal calf. Real-time, color Doppler and spectral tracing, compression and augmentation techniques were us ed. FINDINGS: RIGHT LEG: The exam demonstrates thrombus adherent to the wall of the proximal common femoral vein and proximal saphenofemoral vein. Patient had known thrombus in this area on previous examination of 04/26/17. Find ings are consistent with residual venous thrombosis. LEFT LEG: There is only proximal compression of the mid saphenofemoral vein. This is consistent with partially recanalized DVT. The remainder of the venous system appears patent. CONCLUSION: 1. There is bilateral DVT. More so on the right than the left. The DVT on the right appears stable co mpared to the previous of 04/26/17. 2. No prior imaging of the left leg is available however DVT on the left appears partially recanalize d as well. 3. There are enlarged nodes evident in the groin bilaterally. The largest node in the right groin jese sures 7.0 x 3.4 x 0.8 CM. The largest node in the left groin measures 3.7 x 3.6 x 1.9 CM. These are s ignificantly enlarged. It is possible these are reactive; however, underlying malignancy is not exclu ded. Grayson Rubin MD on June 07, 2017 at 9:59 Board Certified Radiologist. This report was verified electronically.
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
--- NOTE | 2017-06-07 13:03 | EKG ---
Date Performed: 06/06/2017 Time Performed: 21:55:28 PTAGE: 52 years EKG: Sinus rhythm NORMAL ECG NO PREVIOUS TRACING DOCTOR: Jose Luis Moralez Interpretating Date/Time 06/07/2017 12:59:09
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
[2017-06-07] MEDS: cefTRIAXone INJ 2,000 MG in SODIUM CHLORIDE 0.9% INJ 100 ML IV SCH (18:27)
[2017-06-08] VITALS: BP 133/84; PULSE 60; RESP 18; TEMP 97.3; O2SAT 98
[2017-06-08] MEDS: ACETAMINOPHEN/HYDROcodone 325 MG/10 MG TAB PO PRN ×4 (03:55→19:52)
[2017-06-08 05:57] VITALS: BP 139/86; PULSE 65; RESP 18; TEMP 97.6; O2SAT 99
[2017-06-08 06:58] LABS: AUTOMATED NEUTROPHIL # 4.1 TH/MM3 (1.8-7.7); BASOPHIL % 0.7 % (0.0-2.0); EOSINOPHIL # 0.2 TH/MM3 (0-0.4); EOSINOPHIL % 2.6 % (0.0-4.0); HEMATOCRIT 35.3 % (39.0-51.0); HEMO FLAGS DIFF FINAL; LYMPH % 19.6 % (9.0-44.0); LYMPHOCYTE # 1.2 TH/MM3 (1.0-4.8); MEAN CELL VOLUME 90.5 FL (80.0-100.0); MEAN CORPUSCULAR HEMOGLOBIN 30.3 PG (27.0-34.0); MEAN CORPUSCULAR HGB CONC 33.5 % (32.0-36.0); MONO % 12.1 % (0.0-8.0); PLATELET COUNT 166 TH/MM3 (150-450); RED BLOOD COUNT 3.91 MIL/MM3 (4.50-5.90); RED CELL DISTRIBUTION WIDTH 14.4 % (11.6-17.2); WHITE BLOOD COUNT 6.3 TH/MM3 (4.0-11.0)
[2017-06-08] MEDS ORDERED: PHARMACY ORDERED LAB ONE (07:45)
[2017-06-08 07:46] LABS: BICARBONATE 27.8 MEQ/L (21.0-32.0); POTASSIUM 4.4 MEQ/L (3.5-5.1)
[2017-06-08 08:00] VITALS: BP 124/71; PULSE 61; RESP 17; TEMP 97.1; O2SAT 99
[2017-06-08] MEDS: REMOVE OLD PATCH T-DERMAL SCH (09:00)
[2017-06-08] MEDS: NICOTINE 14 MG/24 HR PATCH T-DERMAL SCH (09:00)
[2017-06-08] MEDS: SODIUM CHLORIDE 0.9% FLUSH 10 ML FLUSH IV FLUSH SCH ×2 (09:00→19:52)
[2017-06-08] MEDS: DOCUSATE SODIUM 50 MG/SENNA 8.6 MG TAB PO SCH ×2 (09:40→19:51)
[2017-06-08] MEDS: APIXABAN 5 MG TABLET PO SCH (09:40)
--- NOTE | 2017-06-08 09:42 | HHI.FPPN ---
Subjective Remarks No acute events overnight. Afebrile vital signs stable overnight. Patient spoke with orthopedic service yesterday. Patient reports that he is leaning toward AKA because this will be the only permanent solution that will keep him out of the hospital in the future. Except for the leg pain, he reports that he otherwise feels well. He denies any fever, chills, chest pain, shortness of breath. (Axel Garcias MD R2) Objective Vitals Vital Signs Date Time Temp Pulse Resp B/P (MAP) Pulse Ox O2 Delivery O2 Flow Rate FiO2 06/08/17 08:00 97.1 61 17 124/71 (88) 99 06/08/17 05:57 97.6 65 18 139/86 (103) 99 06/08/17 00:00 97.3 60 18 133/84 (100) 98 06/07/17 20:00 97.6 64 18 141/85 (103) 100 06/07/17 19:28 66 06/07/17 16:00 96.9 60 17 126/77 (93) 100 06/07/17 12:00 96.9 66 17 110/69 (83) 95 06/07/17 10:52 18 I/O 06/07/17 06/07/17 06/07/17 06/08/17 06/08/17 06/08/17 06:59 14:59 22:59 06:59 14:59 22:59 Intake Total 1940 ml 2394 ml 2250 ml Output Total 2200 ml 1000 ml Balance 1940 ml 2394 ml 50 ml -1000 ml Intake Oral 840 ml 120 ml 1200 ml IV Total 1100 ml 2274 ml 1050 ml Output Urine Total 2200 ml 1000 ml # Voids 100 # Bowel Movements 1 (Axel Garcias MD R2) Result Diagram: 06/08/17 0618 06/08/17 0618 Imaging Last Impressions Lower Extremity Ultrasound 06/07/17 0000 Signed Impressions: Service Date/Time: Wednesday, June 07, 2017 08:45 - CONCLUSION: 1. There is bilateral DVT. More so on the right than the left. The DVT on the right appears stable compared to the previous of 04/26/17. 2. No prior imaging of the left leg is available however DVT on the left appears partially recanalized as well. 3. There are enlarged nodes evident in the groin bilaterally. The largest node in the right groin measures 7.0 x 3.4 x 0.8 CM. The largest node in the left groin measures 3.7 x 3.6 x 1.9 CM. These are significantly enlarged. It is possible these are reactive; however, underlying malignancy is not excluded. Grayson Rubin MD Chest X-Ray 06/06/17 1904 Signed Impressions: Service Date/Time: Tuesday, June 06, 2017 20:09 - CONCLUSION: No acute disease. Patricio Jenkins MD Tibia/Fibula X-Ray 06/06/17 0000 Signed Impressions: Service Date/Time: Tuesday, June 06, 2017 20:12 - CONCLUSION: Decreased soft tissue swelling. Stable chronic appearing deformities of the leg. Patricio Jenkins MD Objective Remarks GENERAL: Disheveled male, lying in bed in no obvious distress SKIN: The left lower extremity is edematous and erythematous with oozing lesion over upper, anterior aspect and chronic scars as well as skin changes noted over entire anterior aspect. Two small, round open ulcers noted over lateral malleolus. Small, round, crusty lesion on erythematous base on mid, anterior aspect of right lower extremity. CARDIOVASCULAR: Regular rate and rhythm without murmurs, gallops, or rubs. RESPIRATORY: Clear to auscultation. Breath sounds equal bilaterally. No wheezes , rales, or rhonchi. GASTROINTESTINAL: Abdomen soft, non-tender, nondistended. MUSCULOSKELETAL: See SKIN. Positive dorsalis pedal pulses bilaterally. NEUROLOGICAL: Awake and alert. (Axel Garcias MD R2) A/P Assessment and Plan Patient is a 52 year old male who presents to the [facility] ED complaining of worsening left lower leg pain x2days. He was seen at [facility] in March 2017 with suspected chronic osteomyelitis of left lower extremity. Patient meets severe sepsis criteria at this admission. Admit to medicine service. Discharge Planning Pending orthopedic recommendations and interventions, antibiotic plan per infectious disease. (Axel Garcias MD R2) Attending Attestation Pt. examined and case discussed with resident physicians. I have read the above note and agree with the assessment and plan as discussed with me. I was involved in all medical decision making for this patient. Gurmeet La MD (Gurmeet La MD) Problem List: (1) Severe sepsis ICD Codes: A41.9 - Sepsis, unspecified organism; R65.20 - Severe sepsis without septic shock Status: Resolved Plan: Resolved with IV antibiotics and fluid hydration per sepsis protocol. Continue IV antibiotics per ID (Infectious disease consult placed for chronic osteomyelitis and possibly infected hardware): - Ceftriaxone 2 g IV every 24 hours (one dose on 06/07 - present) - Blood cultures 2 show NGTD - D/c Normal saline at 135 mL/hour as patient is tolerating PO Antibiotic history: Vancomycin 1 g IV every 12 hours (one dose on 06/07) Zosyn 3.375 g IV every 6 hours (4 doses on 06/07) (2) Left leg cellulitis ICD Codes: L03.116 - Cellulitis of left lower limb Status: Acute Plan: Likely acute on chronic osteomyelitis versus infected hardware versus superficial cellulitis. - Infectious disease consulted to assist with management and possible long-term IV antibiotics - IV antibiotics as above. Orthopedics consult recommended AKA given significant area of infection, likely infected hardware and chronic osteomyelitis - Patient now leaning toward AKA at this time Wound care consult to assist in dressing for the wound Blood cultures NGTD Pain management as below: - Acetaminophen 650 mg PO q6hr PRN Fever and Pain 1-2 - [place] 7.5-325 mg PO q4hr PRN Pain 3-5 - [place] 10-325 mg PO q4hr PRN Pain 6-10 - Morphine 4 mg IV Push q3hr PRN Breakthrough Pain - Zofran 4 mg IV q6hr PRN Nausea and Vomiting (3) Hx of deep venous thrombosis ICD Codes: Z86.718 - Personal history of other venous thrombosis and embolism Plan: History of DVTs. Noncompliance with anticoagulation for past month - supposed to be on eliquis. - ultrasound showed bilateral DVTs of lower extremities, R>L - Restarted on home dose of eliquis (4) Tobacco abuse ICD Codes: Z72.0 - Tobacco use Plan: Hx of 1 pack/day x 6 years Plan: * Nicotine 14 mg Patch. (5) Fluid, Electrolyte, Nutrition and Prophylaxis Plan: Fluids: * Discontinue IV maintenance fluids at 135 ml/hr as patient is tolerating by mouth Electrolytes: * Monitor and replete as necessary. Nutrition: * Regular diet. Prophylaxis: * GI prophylaxis not indicated at this time. * Patient receiving therapeutic Eliquis. (Axel Garcias MD R2) Axel Garcias MD R2 Jun 08, 2017 09:42 Gurmeet La MD Jun 08, 2017 18:17
[2017-06-08 12:00] VITALS: BP 123/82; PULSE 65; RESP 17; TEMP 96.8; O2SAT 99
[2017-06-08 16:00] VITALS: BP 131/74; PULSE 62; RESP 17; TEMP 97.8; O2SAT 96
[2017-06-08] MEDS: cefTRIAXone INJ 2,000 MG in SODIUM CHLORIDE 0.9% INJ 100 ML IV SCH (17:43)
[2017-06-08 20:00] VITALS: BP 144/80; PULSE 54; PULSE 66; RESP 20; TEMP 97.7; O2SAT 99
[2017-06-09] VITALS: BP 142/95; PULSE 66; RESP 20; TEMP 97.5; O2SAT 97
[2017-06-09] MEDS: ACETAMINOPHEN/HYDROcodone 325 MG/10 MG TAB PO PRN ×4 (00:18→20:54)
[2017-06-09 04:00] VITALS: BP 125/74; PULSE 58; RESP 20; TEMP 96.9; O2SAT 98
[2017-06-09] MEDS ORDERED: SODIUM CHLORID 0.9% 500 ML IV PRN (06:15)
[2017-06-09] MEDS ORDERED: POVIDONE IODINE 5% (ANTISEPSIS KIT) 4 APPLICATIONS EACH NARE PRN (06:15)
[2017-06-09] MEDS ORDERED: LACTATED RINGER'S 1000 ML IV PRN (06:15)
[2017-06-09] MEDS ORDERED: CHLORHEXIDINE GLUCONATE 2 % 1 PACK (2 CLOTHS) TOPICAL PRN (06:15)
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
[2017-06-09 08:00] VITALS: BP 139/88; PULSE 56; RESP 17; TEMP 96.5; O2SAT 100
[2017-06-09] MEDS: REMOVE OLD PATCH T-DERMAL SCH (09:00)
[2017-06-09] MEDS: NICOTINE 14 MG/24 HR PATCH T-DERMAL SCH (09:00)
[2017-06-09] MEDS: DOCUSATE SODIUM 50 MG/SENNA 8.6 MG TAB PO SCH ×2 (09:25→20:54)
[2017-06-09] MEDS: SODIUM CHLORIDE 0.9% FLUSH 10 ML FLUSH IV FLUSH SCH ×2 (09:25→20:57)
--- NOTE | 2017-06-09 10:01 | HHI.FPPN ---
Subjective Remarks Patient seen and examined this morning. Patient has been nothing by mouth in anticipation of his surgery.Pt denies any chest pain/shortness of breath. Patient denies any dizziness or any acute changes. Patient has been afebrile. Patient did speak with the orthopedic surgery team yesterday and has allowed them to go forth with the surgery today, knowing that he may have to get a above -the-knee amputation. Objective Vitals Vital Signs Date Time Temp Pulse Resp B/P (MAP) Pulse Ox O2 Delivery O2 Flow Rate FiO2 06/09/17 08:00 96.5 56 17 139/88 (105) 100 06/09/17 04:00 96.9 58 20 125/74 (91) 98 06/09/17 00:00 97.5 66 20 142/95 (111) 97 06/08/17 20:00 97.7 66 20 144/80 (101) 99 06/08/17 20:00 54 06/08/17 16:00 97.8 62 17 131/74 (93) 96 06/08/17 12:00 96.8 65 17 123/82 (96) 99 I/O 06/08/17 06/08/17 06/08/17 06/09/17 06/09/17 06/09/17 07:00 15:00 23:00 07:00 15:00 23:00 Intake Total 1000 ml 580 ml 240 ml Output Total 1000 ml 775 ml 2400 ml 1750 ml 525 ml Balance -1000 ml 225 ml -1820 ml -1510 ml -525 ml Intake Oral 480 ml 240 ml IV Total 1000 ml 100 ml Output Urine Total 1000 ml 775 ml 2400 ml 1750 ml 525 ml # Bowel Movements 0 0 Result Diagram: 06/08/1761706/08/17617 Objective Remarks GENERAL: Disheveled male, lying in bed in no obvious distress SKIN: The left lower extremity is edematous and erythematous with oozing lesion over upper, anterior aspect and chronic scars as well as skin changes noted over entire anterior aspect. Two small, round open ulcers noted over lateral malleolus. Small, round, crusty lesion on erythematous base on mid, anterior aspect of right lower extremity (the exam is unchanged from yesterday). CARDIOVASCULAR: Regular rate and rhythm without murmurs, gallops, or rubs. RESPIRATORY: Clear to auscultation. Breath sounds equal bilaterally. No wheezes , rales, or rhonchi. GASTROINTESTINAL: Abdomen soft, non-tender, nondistended. MUSCULOSKELETAL: See SKIN. Positive dorsalis pedal pulses bilaterally. NEUROLOGICAL: Awake and alert. A/P Assessment and Plan Patient is a 52 year old male who presents with acute on chronic suspected chronic osteomyelitis with abscess of left lower extremity. Pt for OR debridement, irrigation, and likely AKA today. Discharge Planning Pending post-op orthopedic recommendations and interventions, antibiotic plan per infectious disease. Problem List: (1) Severe sepsis ICD Codes: A41.9 - Sepsis, unspecified organism; R65.20 - Severe sepsis without septic shock Status: Resolved Plan: Resolved with IV antibiotics and fluid hydration per sepsis protocol. Continue IV antibiotics per ID (Infectious disease consult placed for chronic osteomyelitis and possibly infected hardware): - Ceftriaxone 2 g IV every 24 hours (Started on 06/07, Today is Day #3) - Blood cultures 2 show NGTD - D/c Normal saline at 135 mL/hour as patient is tolerating PO Antibiotic history: Vancomycin 1 g IV every 12 hours (one dose on 06/07) Zosyn 3.375 g IV every 6 hours (4 doses on 06/07) (2) Left leg cellulitis ICD Codes: L03.116 - Cellulitis of left lower limb Status: Acute Plan: Likely acute on chronic osteomyelitis with abscess - Infectious disease consulted to assist with management and possible long-term IV antibiotics - IV antibiotics as above. Orthopedics consult recommended AKA given significant area of infection, likely infected hardware and chronic osteomyelitis - Patient accepting AKA if necessary today Wound care consult to assist in dressing for the wound Blood cultures NGTD Pain management as below: - Acetaminophen 650 mg PO q6hr PRN Fever and Pain 1-2 - [place] 7.5-325 mg PO q4hr PRN Pain 3-5 - [place] 10-325 mg PO q4hr PRN Pain 6-10 - Morphine 4 mg IV Push q3hr PRN Breakthrough Pain - Zofran 4 mg IV q6hr PRN Nausea and Vomiting (3) Hx of deep venous thrombosis ICD Codes: Z86.718 - Personal history of other venous thrombosis and embolism Plan: Cont Eliquis History of DVTs. Noncompliance with anticoagulation for past month - supposed to be on eliquis. - ultrasound showed bilateral DVTs of lower extremities, R>L - Restarted on home dose of eliquis (4) Tobacco abuse ICD Codes: Z72.0 - Tobacco use Status: Chronic Plan: Hx of 1 pack/day x 6 years Plan: * Nicotine 14 mg Patch. (5) Fluid, Electrolyte, Nutrition and Prophylaxis Status: Chronic Plan: Fluids: * maintenance fluids while NPO Electrolytes: * Monitor and replete as necessary. Nutrition: * NPO since 12AM for surgery Prophylaxis: * GI prophylaxis not indicated at this time. * Patient receiving therapeutic Eliquis. Itzel Melo MD R2 Jun 09, 2017 10:01
--- NOTE | 2017-06-09 10:58 | HHI.PR ---
Addendum to Inpatient Note Addendum Reason: Additional Documentation Additional Information D/w Dr.Lambie peterson. Noted Ortho note about surgery plans today. Will follow chart to see if further ID input needed. Denisse Hardin MD Jun 09, 2017 10:58
[2017-06-09 12:00] VITALS: BP 132/87; PULSE 63; RESP 17; TEMP 96.8; O2SAT 99
[2017-06-09] MEDS ORDERED: DEXAMETHASONE SOD PHOS 4 MG/ML VIAL IV ONE (12:00)
[2017-06-09] MEDS ORDERED: GLYCOPYRROLATE 1 MG/5 ML SYRINGE IV PUSH ONE (12:00)
[2017-06-09] MEDS ORDERED: MORPHINE SULFATE 4 MG/ML INJ IV ONE (12:00)
[2017-06-09] MEDS ORDERED: ACETAMINOPHEN 1000 MG/100 ML 100 ML IV ONE (12:00)
[2017-06-09] MEDS ORDERED: TOBRAMYCIN SULFATE 1200 MG VIAL OTHER ONE (12:00)
[2017-06-09] MEDS ORDERED: LACTATED RINGER'S 1000 ML INJ 1,000 ML IV ONE (12:00)
[2017-06-09] MEDS ORDERED: LIDOCAINE HCL 1% PF 5 ML AMPULE OTHER ONE (12:00)
[2017-06-09] MEDS ORDERED: ONDANSETRON HCL 4 MG/2 ML VIAL IV PUSH ONE (12:00)
[2017-06-09] MEDS ORDERED: ROCURONIUM INJ 50 MG/5 ML SYRINGE IV PUSH ONE (12:00)
[2017-06-09] MEDS ORDERED: PROPOFOL 200 MG/20 ML AMP IV ONE (12:00)
[2017-06-09] MEDS ORDERED: NEOSTIGMINE 3 MG/3 ML SYR IV ONE (12:00)
[2017-06-09] MEDS ORDERED: MIDAZOLAM HCL 2 MG/2 ML VIAL ONE (12:11)
[2017-06-09] MEDS ORDERED: FAMOTIDINE 20 MG/2 ML VIAL ONE (12:11)
[2017-06-09] MEDS ORDERED: GENTAMICIN SULFATE 80 MG/2 ML VIAL ONE (12:12)
[2017-06-09] MEDS ORDERED: SODIUM CHLOR 0.9% 250 ML INJ 250 ML ONE (12:12)
[2017-06-09] MEDS ORDERED: VANCOMYCIN HCL 1000 MG VIAL ONE ×2 (12:12→12:42)
[2017-06-09] MEDS: cefTRIAXone INJ 2,000 MG in SODIUM CHLORIDE 0.9% INJ 100 ML IV SCH (13:52)
--- NOTE | 2017-06-09 14:58 | PD.OP ---
cc: Eliseo Carson MD Operative Report Date of Surgery: Jun 09, 2017 Preoperative Diagnosis: Left tibia osteomyelitis with infected hardware Postoperative Diagnosis: Procedure: Removal of complex deep hardware, irrigation debridement left tibia osteomyelitis, placement of antibiotic beads Anesthesia: Gen. Surgeon: Eliseo Carson Channel Rebuilder(s): Ethan Heredia PA-C The surgical procedure was assisted by my physician assistant manager/embalmer. My P.A. presence was necessary throughout this case for the manipulation and positioning of the surgical extremity. My P.A. was assisting me throughout the duration of this procedure. The skill set of a physician assistant manager/embalmer was medically necessary to complete this procedure. During the surgical case the surgical pathologist was working at the back table and the physician assistant manager/embalmer was directly assisting me. Operation and Findings: Leonard has had a chronic infection of left tibia with infected hardware. I had a lengthy discussion with him preoperatively regarding amputation versus attempted limb salvage. He has had multiple previous surgeries on the left leg. He would like one more attempt at salvage of his left leg. Informed consent was obtained and operative site was marked. He is brought to operating room. His given IV sedation and general anesthesia. Left leg was prepped with alcohol followed by Hibiclens and draped usual sterile fashion. He is already on scheduled antibiotics. Timeout procedure was performed. Procedure began with removal of complicated hind foot fusion nail hardware. The hardware was visualized under fluoroscopy. There were a total 5 interlocking screws. Each of the screws was identified under fluoroscopy. Incisions were made around each of the screws. There was some bone overgrowth around the screws. Osteotomes were used to debride the extra bone. The screws were identified. The screws were now removed appropriately. An additional 2 severe incision was made through previous scar on the plantar aspect of the calcaneus. A guidepin was placed into the calcaneus towards the center of the nail. There was significant bone overgrowth of the nail. Opening reamer was placed over the guidepin to help debride some of the extra bone. The end cap was now removed. The insertion handle was screwed into the nail. The nail was now back slapped and removed. Next attention was turned towards debridement of the tibia. A flexible ball tipped guide pin was advanced up the tibial canal. Because of the significant scar tissue within the tibia, placement of the guidepin was difficult. The canal was sequentially reamed up to size 11.5. The proximal end of the tibia was also debrided with curettes and rongeurs. He had 2 chronic open wounds. These were sharply debrided. Pulsatile lavage was used to thoroughly irrigate the intramedullary canal. Next attention was turned to antibiotic bead placement. 20 cc of stimulan bone cement was mixed with 2 g of vancomycin and 2.4 g of tobramycin. The cement was now made into beads. Once the beads were set they were loaded into a tube. The tube was now placed into the intramedullary canal of the tibia. The tubes were now placed into the intramedullary canal. Final fluoroscopy confirmed removal of all hardware and placement of antibiotic beads. Incisions were closed with 3-0 PDS and 3-0 nylon. Sterile dressings were applied. Patient was awakened and transferred to recovery in stable condition. Eliseo Carson MD Jun 09, 2017 14:58
[2017-06-09] MEDS ORDERED: *morphine SULFATE 8 MG/ML PERIprocedure ONLY ONE ×2 (15:42→16:04)
[2017-06-09] MEDS ORDERED: DO NOT ADM ANY ANTICOAGULANT DRUGS PRN (15:45)
--- NOTE | 2017-06-09 15:59 | RADRPT ---
EXAM DATE/TIME: 06/09/2017 14:42 [facility] COMPARISON: TIBIA/FIBULA LEFT (AP/LAT), June 06, 2017, 20:12. INDICATIONS : Removal of hardware and placement of antibiotic beads. MEDICAL HISTORY : Unobtainable. SURGICAL HISTORY : Unobtainable. ENCOUNTER: Subsequent ACUITY: 3 days PAIN SCORE: Non-responsive. LOCATION: Left tibia. FINDINGS: Multiple views of the left femur demonstrates interval removal of a intramedullary ramírez extending from the distal tibia into the hindfoot. Antibiotic beads have been placed into the intramedullary portio n of the left tibia following creation of a tunnel extending from the distal tibia to the proximal me taphysis. Marked deformity of the proximal tibia is identified. There is solid fusion of the tibiotalar joint and subtalar joints. CONCLUSION: Status post removal of hardware and placement of antibiotic beads as described. Mark Camilo MD on June 09, 2017 at 15:54 Board Certified Radiologist. This report was verified electronically.
[2017-06-09] MEDS ORDERED: *HYDROmorphone PF 1 MG VIAL PERIprocedural Use ONLY ONE (16:17)
[2017-06-09] MEDS: LACTATED RINGER'S 1000 ML INJ 1,000 ML IV SCH (18:18)
[2017-06-09 20:00] VITALS: BP 119/73; PULSE 68; RESP 20; TEMP 97; O2SAT 100
[2017-06-10] VITALS (8 sets, daily range): BP systolic 100–141; BP diastolic 60–84; PULSE 55–111; RESP 17–20; TEMP 96.2–97.5; O2SAT 93–100
[2017-06-10] MEDS: ACETAMINOPHEN/HYDROcodone 325 MG/10 MG TAB PO PRN ×6 (00:35→19:14)
[2017-06-10] MEDS: LACTATED RINGER'S 1000 ML INJ 1,000 ML IV SCH ×3 (01:00→13:24)
[2017-06-10 06:52] LABS: HEMATOCRIT 34.4 % (39.0-51.0); MEAN CELL VOLUME 90.9 FL (80.0-100.0); MEAN CORPUSCULAR HEMOGLOBIN 30.6 PG (27.0-34.0); MEAN CORPUSCULAR HGB CONC 33.7 % (32.0-36.0); PLATELET COUNT 218 TH/MM3 (150-450); RED BLOOD COUNT 3.79 MIL/MM3 (4.50-5.90); RED CELL DISTRIBUTION WIDTH 14.4 % (11.6-17.2); REVIEW FLAG FINAL; WHITE BLOOD COUNT 8.7 TH/MM3 (4.0-11.0)
[2017-06-10 07:46] LABS: BICARBONATE 27.4 MEQ/L (21.0-32.0); POTASSIUM 4.7 MEQ/L (3.5-5.1)
[2017-06-10] MEDS: DOCUSATE SODIUM 50 MG/SENNA 8.6 MG TAB PO SCH ×2 (08:32→19:54)
[2017-06-10] MEDS: SODIUM CHLORIDE 0.9% FLUSH 10 ML FLUSH IV FLUSH SCH ×2 (08:33→19:54)
--- NOTE | 2017-06-10 08:36 | PD.ORT.PN ---
Subjective Subjective Remarks POD 1 s/p CINDY with I&D and placement of Abx space left ankle and tibia reports some pain. but comfortable. states leg has been draining. patient expresses desire to move forward with amputation if infection is going to be recurrent Objective Vitals Vital Signs Date Time Temp Pulse Resp B/P (MAP) Pulse Ox O2 Delivery O2 Flow Rate FiO2 06/10/17 08:00 97.5 111 17 141/84 (103) 93 06/10/17 04:00 96.2 59 18 108/76 (87) 99 06/10/17 01:11 21 06/10/17 00:00 96.6 55 20 125/77 (93) 99 06/09/17 20:00 97.0 68 20 119/73 (88) 100 06/09/17 17:00 60 22 127/83 (98) 97 Room Air 06/09/17 16:30 65 22 128/77 (94) 97 Room Air 06/09/17 16:15 53 18 131/78 (95) 100 Room Air 06/09/17 16:00 59 16 135/76 (95) 98 Room Air 06/09/17 15:45 67 24 132/78 (96) 95 Room Air 06/09/17 15:35 98.7 70 22 146/85 (105) 96 Nasal Cannula 3 06/09/17 12:00 96.8 63 17 132/87 (102) 99 I/O 06/09/17 06/09/17 06/09/17 06/10/17 06/10/17 06/10/17 06:59 14:59 22:59 06:59 14:59 22:59 Intake Total 240 ml 1385 ml 1315 ml Output Total 1750 ml 525 ml 850 ml 1250 ml Balance -1510 ml -525 ml 535 ml 65 ml Intake Oral 240 ml 0 ml 480 ml IV Total 385 ml 835 ml Other 1000 ml Output Urine Total 1750 ml 525 ml 650 ml 1250 ml Estimated Blood Loss 200 ml # Voids 1 2 # Bowel Movements 0 0 0 Result Diagram: 06/10/17 0549 06/10/17 0549 Imaging Last 72 hours Impressions Lower Extremity Ultrasound 06/07/17 0000 Signed Impressions: Service Date/Time: Wednesday, June 07, 2017 08:45 - CONCLUSION: 1. There is bilateral DVT. More so on the right than the left. The DVT on the right appears stable compared to the previous of 04/26/17. 2. No prior imaging of the left leg is available however DVT on the left appears partially recanalized as well. 3. There are enlarged nodes evident in the groin bilaterally. The largest node in the right groin measures 7.0 x 3.4 x 0.8 CM. The largest node in the left groin measures 3.7 x 3.6 x 1.9 CM. These are significantly enlarged. It is possible these are reactive; however, underlying malignancy is not excluded. Grayson Rubin MD Chest X-Ray 06/06/17 190 Signed Impressions: Service Date/Time: Tuesday, June 06, 2017 20:09 - CONCLUSION: No acute disease. Patricio Jenkins MD Objective Remarks LLE: dressings are saturated with blood on anterior tibia and heel. +vac. good seal. nvi. Assessment & Plan Assessment and Plan 1) Left Leg HW infection with osteomyelitis s/p CINDY with I&D and Abx spacer placement - POD 1 -vac taken down and swab culture down of lateral ankle wound today. will send for cultures in order to tailor Abx -maintain vac -daily dressing changes of left leg with xeroform/4x4/BONI -will discuss with Dr Verdin the potential for amputation at patients request Ethan Heredia Jun 10, 2017 08:36
--- NOTE | 2017-06-10 09:09 | HHI.FPPN ---
Subjective Remarks Except for an episode of tachycardia this morning, AFVSS overnight. Patient is POD 1 s/p CINDY with I&D and placement of Abx in space around left ankle and tibia. Patient reports some leg pain that is well controlled by medication. He denies any other complaints. Pt states leg has been draining. Patient expresses desire to move forward with amputation if infection is going to be recurrent. (Axel Garcias MD R2) Objective Vitals Vital Signs Date Time Temp Pulse Resp B/P (MAP) Pulse Ox O2 Delivery O2 Flow Rate FiO2 06/10/17 08:00 97.5 111 17 141/84 (103) 93 06/10/17 04:00 96.2 59 18 108/76 (87) 99 06/10/17 01:11 21 06/10/17 00:00 96.6 55 20 125/77 (93) 99 06/09/17 20:00 97.0 68 20 119/73 (88) 100 06/09/17 17:00 60 22 127/83 (98) 97 Room Air 06/09/17 16:30 65 22 128/77 (94) 97 Room Air 06/09/17 16:15 53 18 131/78 (95) 100 Room Air 06/09/17 16:00 59 16 135/76 (95) 98 Room Air 06/09/17 15:45 67 24 132/78 (96) 95 Room Air 06/09/17 15:35 98.7 70 22 146/85 (105) 96 Nasal Cannula 3 06/09/17 12:00 96.8 63 17 132/87 (102) 99 I/O 06/09/17 06/09/17 06/09/17 06/10/17 06/10/17 06/10/17 07:00 15:00 23:00 07:00 15:00 23:00 Intake Total 240 ml 1385 ml 1315 ml Output Total 1750 ml 525 ml 850 ml 1250 ml Balance -1510 ml -525 ml 535 ml 65 ml Intake Oral 240 ml 0 ml 480 ml IV Total 385 ml 835 ml Other 1000 ml Output Urine Total 1750 ml 525 ml 650 ml 1250 ml Estimated Blood Loss 200 ml # Voids 1 2 # Bowel Movements 0 0 0 (Axel Garcias MD R2) Result Diagram: 06/10/17 0549 06/10/1749 Imaging Last Impressions Tibia/Fibula X-Ray 06/09/17 0000 Signed Impressions: Service Date/Time: Friday, June 09, 2017 14:42 - CONCLUSION: Status post removal of hardware and placement of antibiotic beads as described. Mark Camilo MD Lower Extremity Ultrasound 06/07/17 0000 Signed Impressions: Service Date/Time: Wednesday, June 07, 2017 08:45 - CONCLUSION: 1. There is bilateral DVT. More so on the right than the left. The DVT on the right appears stable compared to the previous of 04/26/17. 2. No prior imaging of the left leg is available however DVT on the left appears partially recanalized as well. 3. There are enlarged nodes evident in the groin bilaterally. The largest node in the right groin measures 7.0 x 3.4 x 0.8 CM. The largest node in the left groin measures 3.7 x 3.6 x 1.9 CM. These are significantly enlarged. It is possible these are reactive; however, underlying malignancy is not excluded. Grayson Rubin MD Chest X-Ray 06/06/17 1904 Signed Impressions: Service Date/Time: Tuesday, June 06, 2017 20:09 - CONCLUSION: No acute disease. Patricio Jenkins MD Objective Remarks GENERAL: Disheveled male, lying in bed in no obvious distress SKIN: The left lower extremity is less edematous and erythematous today with new dressings over middle to upper leg, tibia anterior aspect. New dressings over two small, round open ulcers noted over lateral malleolus and over heel incision with sutures. Wound vac in place with good seal draining gross blood. CARDIOVASCULAR: Regular rate and rhythm without murmurs, gallops, or rubs. RESPIRATORY: Clear to auscultation. Breath sounds equal bilaterally. No wheezes , rales, or rhonchi. GASTROINTESTINAL: Abdomen soft, non-tender, nondistended. MUSCULOSKELETAL: See SKIN. Positive dorsalis pedal pulses bilaterally. Patient NVI with sensation and motor and cap refill intact in left foot. Left foot TTP. NEUROLOGICAL: Awake and alert. Procedures Patient is POD 1 s/p CINDY with I&D and placement of Abx in space around left ankle and tibia (on 06/09) (Axel Garcias MD R2) A/P Assessment and Plan Patient is a 52 year old male who presents with acute on chronic suspected acute on chronic osteomyelitis with abscess of left lower extremity. Pt went to OR for debridement, irrigation. Still considering AKA. Discharge Planning Pending post-op orthopedic recommendations and interventions, antibiotic plan per infectious disease. (Axel Garcias MD R2) Attending Attestation Patient seen and examined. Case reviewed and discussed with the resident team. Agree with plan of care as discussed with me and documented in the resident note. (Sharon Salazar MD) Problem List: (1) Chronic osteomyelitis ICD Codes: M86.60 - Other chronic osteomyelitis, unspecified site Plan: Left Leg HW infection with osteomyelitis POD 1 s/p CINDY with I&D and Abx spacer placement; swab culture collected of lateral ankle wound today. Sent for cultures in order to tailor Abx. -follow wound cultures -maintain wound vac -daily dressing changes of left leg with xeroform/4x4/BONI -will discuss with orthopedic team the potential for amputation at patient's request Continue IV antibiotics per ID (Infectious disease consult placed for chronic osteomyelitis and possibly infected hardware): - Ceftriaxone 2 g IV every 24 hours (06/07-present) - Blood cultures 2 show NGTD Antibiotic history: Vancomycin 1 g IV every 12 hours (one dose on 06/07) Zosyn 3.375 g IV every 6 hours (4 doses on 06/07) Intraoperative Vancomycin IV and Gentamicin irrigation at operative site (06/09) (2) Left leg cellulitis ICD Codes: L03.116 - Cellulitis of left lower limb Status: Acute Plan: Likely acute on chronic osteomyelitis with abscess; ID c/s appreciated - IV antibiotics as above, per ID Orthopedics consult interventions and recommendations appreciated above. Wound care consult to assist in dressing for the wound Blood cultures NGTD Pain management as below: - Acetaminophen 650 mg PO q6hr PRN Fever and Pain 1-2 - [place] 7.5-325 mg PO q4hr PRN Pain 3-5 - [place] 10-325 mg PO q4hr PRN Pain 6-10 - Morphine 4 mg IV Push q3hr PRN Breakthrough Pain - Zofran 4 mg IV q6hr PRN Nausea and Vomiting (3) Hx of deep venous thrombosis ICD Codes: Z86.718 - Personal history of other venous thrombosis and embolism Plan: -Cont Eliquis Impression and work up: History of DVTs. Noncompliance with anticoagulation for past month - supposed to be on Eliquis. - ultrasound showed bilateral DVTs of lower extremities, R>L - Restarted on home dose of Eliquis (4) Tobacco abuse ICD Codes: Z72.0 - Tobacco use Status: Chronic Plan: Hx of 1 pack/day x 6 years -Nicotine 14 mg Patch. (5) Fluid, Electrolyte, Nutrition and Prophylaxis Status: Chronic Plan: Fluids: * 1/2 maintenance fluids with LR Electrolytes: * Monitor and replete as necessary. Nutrition: * Regular diet Prophylaxis: * GI prophylaxis not indicated at this time. * Patient receiving therapeutic Eliquis. (Axel Garcias MD R2) Axel Garcias MD R2 Jun 10, 2017 09:09 Sharon Salazar MD Jun 10, 2017 13:21
--- NOTE | 2017-06-10 09:18 | PD.WCN.NOT ---
Wound Consult Additional Information: Consult received for wound management of L lower extremity from Doctor Tiara Garza not seen Orthopedic Surgeon Doctor Carson performed surgery on patient's L lower extremity for Limb salvage on 06/09/2017. Appropriate post op dressing orders are in place. Wound care is signing off. Faith Dumont [facility] Jun 10, 2017 09:18
[2017-06-10] MEDS: cefTRIAXone INJ 2,000 MG in SODIUM CHLORIDE 0.9% INJ 100 ML IV SCH (18:28)
[2017-06-10] MEDS: APIXABAN 5 MG TABLET PO SCH (18:29)
[2017-06-10] MEDS: ONDANSETRON HCL 4 MG/2 ML VIAL IVP PRN (20:21)
[2017-06-11] VITALS (8 sets, daily range): BP systolic 123–134; BP diastolic 58–81; PULSE 58–73; RESP 16–20; TEMP 97.6–98.1; O2SAT 92–98
[2017-06-11] MEDS: APIXABAN 5 MG TABLET PO SCH ×2 (06:22→17:17)
[2017-06-11] MEDS: SODIUM CHLORIDE 0.9% FLUSH 10 ML FLUSH IV FLUSH SCH ×2 (09:07→20:21)
[2017-06-11] MEDS: DOCUSATE SODIUM 50 MG/SENNA 8.6 MG TAB PO SCH ×2 (09:07→20:21)
[2017-06-11] MEDS: ACETAMINOPHEN/HYDROcodone 325 MG/10 MG TAB PO PRN ×4 (09:07→20:20)
[2017-06-11] MEDS: LACTATED RINGER'S 1000 ML INJ 1,000 ML IV SCH ×2 (09:10→17:19)
--- NOTE | 2017-06-11 12:57 | HHI.FPPN ---
Subjective Remarks No acute events overnight. AFVSS overnight. Patient reports some worsening left leg pain. He denies any other complaints, including chest pain, shortness of breath. He does report that he has not had a BM since several days ago (Thursday per EMR). (Axel Garcias MD R2) Objective Vitals Vital Signs Date Time Temp Pulse Resp B/P (MAP) Pulse Ox O2 Delivery O2 Flow Rate FiO2 06/11/17 11:51 98.1 60 18 127/78 (94) 94 06/11/17 07:28 97.8 58 16 127/81 (96) 98 06/11/17 04:22 97.6 66 18 124/71 (88) 92 06/11/17 00:00 97.8 73 18 123/58 (79) 96 06/10/17 20:00 97.5 71 18 125/73 (90) 98 06/10/17 19:50 80 06/10/17 16:00 96.7 60 17 128/80 (96) 98 I/O 06/10/17 06/10/17 06/10/17 06/11/17 06/11/17 06/11/17 07:00 15:00 23:00 07:00 15:00 23:00 Intake Total 1315 ml 480 ml 887 ml Output Total 1250 ml 975 ml 1025 ml Balance 65 ml -495 ml -138 ml Intake Oral 480 ml 480 ml IV Total 835 ml 887 ml Output Urine Total 1250 ml 950 ml 1000 ml Drainage Total 25 ml 25 ml # Bowel Movements 0 0 (Axel Garcias MD R2) Result Diagram: 06/10/17 0549 06/10/17 0549 Imaging Last Impressions Tibia/Fibula X-Ray 06/09/17 0000 Signed Impressions: Service Date/Time: Friday, June 09, 2017 14:42 - CONCLUSION: Status post removal of hardware and placement of antibiotic beads as described. Mark Camilo MD Lower Extremity Ultrasound 06/07/17 0000 Signed Impressions: Service Date/Time: Wednesday, June 07, 2017 08:45 - CONCLUSION: 1. There is bilateral DVT. More so on the right than the left. The DVT on the right appears stable compared to the previous of 04/26/17. 2. No prior imaging of the left leg is available however DVT on the left appears partially recanalized as well. 3. There are enlarged nodes evident in the groin bilaterally. The largest node in the right groin measures 7.0 x 3.4 x 0.8 CM. The largest node in the left groin measures 3.7 x 3.6 x 1.9 CM. These are significantly enlarged. It is possible these are reactive; however, underlying malignancy is not excluded. Grayson Rubin MD Chest X-Ray 06/06/17 1904 Signed Impressions: Service Date/Time: Tuesday, June 06, 2017 20:09 - CONCLUSION: No acute disease. Patricio Jenkins MD Objective Remarks GENERAL: Disheveled male, lying in bed in no obvious distress SKIN: The left lower extremity is less edematous and erythematous today with new dressings over middle to upper leg, tibia anterior aspect. New dressings over two small, round open ulcers noted over lateral malleolus and over heel incision with sutures. Wound vac in place with good seal draining gross blood. CARDIOVASCULAR: Regular rate and rhythm without murmurs, gallops, or rubs. RESPIRATORY: Clear to auscultation. Breath sounds equal bilaterally. No wheezes , rales, or rhonchi. GASTROINTESTINAL: Abdomen soft, non-tender, nondistended. MUSCULOSKELETAL: See SKIN. Positive dorsalis pedal pulses bilaterally. Patient NVI with sensation and motor and cap refill intact in left foot. Left foot TTP. NEUROLOGICAL: Awake and alert. Procedures Patient is POD 1 s/p CINDY with I&D and placement of Abx in space around left ankle and tibia (on 06/09) (Axel Garcias MD R2) A/P Assessment and Plan Patient is a 52 year old male who presents with acute on chronic suspected acute on chronic osteomyelitis with abscess of left lower extremity. Pt went to OR for debridement, irrigation. Still considering AKA. Discharge Planning Pending post-op orthopedic recommendations and interventions, antibiotic plan per infectious disease. Anticipate d/c to SNF with PICC for longterm abx vs AKA. (Axel Garcias MD R2) Attending Attestation Patient seen and examined. Case reviewed and discussed with the resident team. Agree with plan of care as discussed with me and documented in the resident note. (Sharon Salazar MD) Problem List: (1) Chronic osteomyelitis ICD Codes: M86.60 - Other chronic osteomyelitis, unspecified site Plan: Left Leg HW infection with osteomyelitis POD 2 s/p CINDY with I&D and Abx spacer placement; swab culture collected of lateral ankle wound today. Sent for cultures in order to tailor Abx. -follow wound cultures -maintain wound vac -daily dressing changes of left leg with xeroform/4x4/BONI Continue IV antibiotics per ID (Infectious disease consult placed for chronic osteomyelitis and possibly infected hardware): - Ceftriaxone 2 g IV every 24 hours (06/07-present) - Blood cultures 2 show NGTD Antibiotic history: Vancomycin 1 g IV every 12 hours (one dose on 06/07) Zosyn 3.375 g IV every 6 hours (4 doses on 06/07) Intraoperative Vancomycin IV and Gentamicin irrigation at operative site (06/09) (2) Left leg cellulitis ICD Codes: L03.116 - Cellulitis of left lower limb Status: Acute Plan: Likely acute on chronic osteomyelitis with abscess; ID c/s appreciated - IV antibiotics as above, per ID Orthopedics consult interventions and recommendations appreciated above. Wound care consult to assist in dressing for the wound Blood, wound cultures NGTD Pain management as below: - Acetaminophen 650 mg PO q6hr PRN Fever and Pain 1-2 - [place] 10-325 mg PO q3hr PRN Pain 3-5 - 2x [place] 10-325 mg PO q4hr PRN Pain 6-10 - Morphine 4 mg IV Push q3hr PRN Breakthrough Pain - Zofran 4 mg IV q6hr PRN Nausea and Vomiting (3) Hx of deep venous thrombosis ICD Codes: Z86.718 - Personal history of other venous thrombosis and embolism Plan: -Cont Eliquis Impression and work up: History of DVTs. Noncompliance with anticoagulation for past month - supposed to be on Eliquis. - ultrasound showed bilateral DVTs of lower extremities, R>L - Restarted on home dose of Eliquis (4) Constipation ICD Codes: K59.00 - Constipation, unspecified Status: Acute Plan: -bowel regimen ordered -Miralax today; consider lactulose if no BM by tomorrow (5) Tobacco abuse ICD Codes: Z72.0 - Tobacco use Status: Chronic Plan: Hx of 1 pack/day x 6 years -Nicotine 14 mg Patch. (6) Fluid, Electrolyte, Nutrition and Prophylaxis Status: Chronic Plan: Fluids: * Stop IVF Electrolytes: * Monitor and replete as necessary. Nutrition: * Regular diet Prophylaxis: * GI prophylaxis not indicated at this time. * Patient receiving therapeutic Eliquis. (Axel Garcias MD R2) Axel Garcias MD R2 Jun 11, 2017 12:57 Sharon Salazar MD Jun 12, 2017 10:49
[2017-06-11] MEDS ORDERED: POLYETHYLENE GLYCOL 17 GM PKG PO ONE (15:00)
[2017-06-11] MEDS ORDERED: oxyCODONE/ACETAMINOPHEN 5 MG/325 MG TAB PO SCH (16:00)
[2017-06-11] MEDS: cefTRIAXone INJ 2,000 MG in SODIUM CHLORIDE 0.9% INJ 100 ML IV SCH (17:36)
[2017-06-11] MEDS: ONDANSETRON HCL 4 MG/2 ML VIAL IVP PRN (23:36)
[2017-06-12] VITALS (9 sets, daily range): BP systolic 119–137; BP diastolic 63–82; PULSE 56–89; RESP 16–20; TEMP 97–97.9; O2SAT 92–98
[2017-06-12] MEDS ORDERED: diphenhydrAMINE HCL 50 MG CAP PO ONE
[2017-06-12] MEDS ORDERED: POLYETHYLENE GLYCOL 17 GM PKG PO ONE
[2017-06-12] MEDS: ACETAMINOPHEN/HYDROcodone 325 MG/10 MG TAB PO PRN ×6 (00:21→22:11)
[2017-06-12] MEDS: APIXABAN 5 MG TABLET PO SCH ×2 (04:43→18:11)
--- NOTE | 2017-06-12 06:53 | PD.ORT.PN ---
Subjective Subjective Remarks Resting comfortably with no new complaints Objective Vitals Vital Signs Date Time Temp Pulse Resp B/P (MAP) Pulse Ox O2 Delivery O2 Flow Rate FiO2 06/12/17 04:30 97.5 79 18 137/82 (100) 92 06/12/17 00:04 97.9 64 18 126/63 (84) 95 06/11/17 20:18 73 06/11/17 20:00 98.0 63 18 134/69 (90) 96 06/11/17 17:36 92 06/11/17 16:00 97.7 65 20 123/77 (92) 92 06/11/17 11:51 98.1 60 18 127/78 (94) 94 06/11/17 07:28 97.8 58 16 127/81 (96) 98 I/O 06/11/17 06/11/17 06/11/17 06/12/17 06/12/17 06/12/17 07:00 15:00 23:00 07:00 15:00 23:00 Intake Total 887 ml 2672 ml Output Total 1025 ml 1175 ml 1300 ml Balance -138 ml 1497 ml -1300 ml Intake Oral 960 ml IV Total 887 ml 1712 ml Output Urine Total 1000 ml 1100 ml 1250 ml Drainage Total 25 ml 75 ml 50 ml # Bowel Movements 0 Result Diagram: 06/10/17 0549 06/10/17 0549 Imaging Last 72 hours Impressions Lower Extremity Ultrasound 06/07/17 0000 Signed Impressions: Service Date/Time: Wednesday, June 07, 2017 08:45 - CONCLUSION: 1. There is bilateral DVT. More so on the right than the left. The DVT on the right appears stable compared to the previous of 04/26/17. 2. No prior imaging of the left leg is available however DVT on the left appears partially recanalized as well. 3. There are enlarged nodes evident in the groin bilaterally. The largest node in the right groin measures 7.0 x 3.4 x 0.8 CM. The largest node in the left groin measures 3.7 x 3.6 x 1.9 CM. These are significantly enlarged. It is possible these are reactive; however, underlying malignancy is not excluded. Grayson Rubin MD Chest X-Ray 06/06/17 7920 Signed Impressions: Service Date/Time: Tuesday, June 06, 2017 20:09 - CONCLUSION: No acute disease. Patricio Jenkins MD Objective Remarks LLE: dressings are saturated with blood on anterior tibia and heel. +vac. good seal. nvi. Assessment & Plan Assessment and Plan 1) Left Leg HW infection with osteomyelitis s/p CINDY with I&D and Abx spacer placement - POD 3 Maintain wound VAC We'll plan on wound VAC changes afternoon Continue antibiotics Axel Mendez Jr. Jun 12, 2017 06:52
[2017-06-12] MEDS: DOCUSATE SODIUM 50 MG/SENNA 8.6 MG TAB PO SCH ×2 (09:14→21:26)
[2017-06-12] MEDS: SODIUM CHLORIDE 0.9% FLUSH 10 ML FLUSH IV FLUSH SCH ×2 (09:15→21:26)
--- NOTE | 2017-06-12 10:36 | HHI.FPPN ---
Subjective Remarks Patient seen and examined this morning. Patient denies any fever/chills overnight. Patient denies any chest pain/shortness of breath/dizziness. Patient is expressing some concerns about leaving the hospital and getting reinfected again. Did explain to the patient the case management is working on a long-term player and antibiotic plan. (Itzel Melo MD R2) Objective Vitals Vital Signs Date Time Temp Pulse Resp B/P (MAP) Pulse Ox O2 Delivery O2 Flow Rate FiO2 06/12/17 08:03 97.2 56 20 126/73 (90) 97 06/12/17 04:30 97.5 79 18 137/82 (100) 92 06/12/17 00:04 97.9 64 18 126/63 (84) 95 06/11/17 20:18 73 06/11/17 20:00 98.0 63 18 134/69 (90) 96 06/11/17 17:36 92 06/11/17 16:00 97.7 65 20 123/77 (92) 92 06/11/17 11:51 98.1 60 18 127/78 (94) 94 I/O 06/11/17 06/11/17 06/11/17 06/12/17 06/12/17 06/12/17 07:00 15:00 23:00 07:00 15:00 23:00 Intake Total 887 ml 2672 ml Output Total 1025 ml 1175 ml 1300 ml Balance -138 ml 1497 ml -1300 ml Intake Oral 960 ml IV Total 887 ml 1712 ml Output Urine Total 1000 ml 1100 ml 1250 ml Drainage Total 25 ml 75 ml 50 ml # Bowel Movements 0 (Itzel Melo MD R2) Result Diagram: 06/10/1749 06/10/17548 Objective Remarks GENERAL: Disheveled male, lying in bed in no obvious distress SKIN: The left lower extremity is completely wrapped with wound vac in place with good seal draining gross blood. CARDIOVASCULAR: Regular rate and rhythm without murmurs, gallops, or rubs. RESPIRATORY: Clear to auscultation. Breath sounds equal bilaterally. No wheezes , rales, or rhonchi. GASTROINTESTINAL: Abdomen soft, non-tender, nondistended. MUSCULOSKELETAL: See SKIN. Positive dorsalis pedal pulses bilaterally. Patient NVI with sensation and motor and cap refill intact in left foot. Left foot TTP. NEUROLOGICAL: Awake and alert. Procedures Patient is POD 1 s/p CINDY with I&D and placement of Abx in space around left ankle and tibia (on 06/09) (Itzel Melo MD R2) A/P Assessment and Plan Patient is a 52 year old male who presents with acute on chronic suspected acute on chronic osteomyelitis with abscess of left lower extremity. Pt went to OR for debridement, irrigation. Still considering AKA. Discharge Planning Pending post-op orthopedic recommendations and interventions, antibiotic plan per infectious disease. Anticipate d/c to SNF with PICC for longterm abx vs AKA. (Itzel Melo MD R2) Attending Attestation Patient seen and examined. Case reviewed and discussed with the resident team. Agree with plan of care as discussed with me and documented in the resident note. Patient clinically appears very stable. Case management is working on placement and the hope would be to d/c tomorrow to rehab with finalized recs for longterm IV antibiotic treatment if bed is available and if cleared and ready for DC per ID and ORTHO MD NERISSA (Sharon Salazar MD) Problem List: (1) Chronic osteomyelitis ICD Codes: M86.60 - Other chronic osteomyelitis, unspecified site Plan: Left Leg HW infection with osteomyelitis POD 3 s/p CINDY with I&D and Abx spacer placement; swab culture collected of lateral ankle wound today. Sent for cultures in order to tailor Abx. -follow wound cultures -maintain wound vac - Plan to change wound VAC today -daily dressing changes of left leg with xeroform/4x4/BONI Continue IV antibiotics per ID (Infectious disease consult placed for chronic osteomyelitis and possibly infected hardware): - Ceftriaxone 2 g IV every 24 hours (06/07-present) - Blood cultures 2 show NGTD Antibiotic history: Vancomycin 1 g IV every 12 hours (one dose on 06/07) Zosyn 3.375 g IV every 6 hours (4 doses on 06/07) Intraoperative Vancomycin IV and Gentamicin irrigation at operative site (06/09) (2) Left leg cellulitis ICD Codes: L03.116 - Cellulitis of left lower limb Status: Acute Plan: Likely acute on chronic osteomyelitis with abscess; ID c/s appreciated - IV antibiotics as above, per ID Orthopedics consult interventions and recommendations appreciated above. Wound care consult to assist in dressing for the wound Blood, wound cultures NGTD Pain management as below: - Acetaminophen 650 mg PO q6hr PRN Fever and Pain 1-2 - [place] 10-325 mg PO q3hr PRN Pain 3-5 - 2x [place] 10-325 mg PO q4hr PRN Pain 6-10 - Morphine 4 mg IV Push q3hr PRN Breakthrough Pain - Zofran 4 mg IV q6hr PRN Nausea and Vomiting (3) Hx of deep venous thrombosis ICD Codes: Z86.718 - Personal history of other venous thrombosis and embolism Plan: -Cont Eliquis Impression and work up: History of DVTs. Noncompliance with anticoagulation for past month - supposed to be on Eliquis. - ultrasound showed bilateral DVTs of lower extremities, R>L - Restarted on home dose of Eliquis (4) Constipation ICD Codes: K59.00 - Constipation, unspecified Status: Acute Plan: -bowel regimen ordered -s/p Miralax - Add lactulose (5) Tobacco abuse ICD Codes: Z72.0 - Tobacco use Status: Chronic Plan: Hx of 1 pack/day x 6 years -Nicotine 14 mg Patch. (6) Fluid, Electrolyte, Nutrition and Prophylaxis Status: Chronic Plan: Fluids: * Stop IVF Electrolytes: * Monitor and replete as necessary. Nutrition: * Regular diet Prophylaxis: * GI prophylaxis not indicated at this time. * Patient receiving therapeutic Eliquis. (Itzel Melo MD R2) Itzel Melo MD R2 Jun 12, 2017 10:36 Sharon Salazar MD Jun 12, 2017 13:00
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
[2017-06-12] MEDS ORDERED: BACITRACIN TOP OINT 15 GM TUBE TOPICAL ONE (12:45)
--- NOTE | 2017-06-12 17:11 | PD.ORT.PN ---
Subjective Subjective Remarks Resting comfortably with no new complaints Objective Vitals Vital Signs Date Time Temp Pulse Resp B/P (MAP) Pulse Ox O2 Delivery O2 Flow Rate FiO2 06/12/17 16:00 97.0 69 16 119/77 (91) 96 06/12/17 14:13 95 21 06/12/17 12:43 95 21 06/12/17 11:39 97.7 58 18 119/68 (85) 97 06/12/17 08:03 97.2 56 20 126/73 (90) 97 06/12/17 04:30 97.5 79 18 137/82 (100) 92 06/12/17 00:04 97.9 64 18 126/63 (84) 95 06/11/17 20:18 73 06/11/17 20:00 98.0 63 18 134/69 (90) 96 06/11/17 17:36 92 I/O 06/11/17 06/11/17 06/11/17 06/12/17 06/12/17 06/12/17 07:00 15:00 23:00 07:00 15:00 23:00 Intake Total 887 ml 2672 ml Output Total 1025 ml 1175 ml 1300 ml Balance -138 ml 1497 ml -1300 ml Intake Oral 960 ml IV Total 887 ml 1712 ml Output Urine Total 1000 ml 1100 ml 1250 ml Drainage Total 25 ml 75 ml 50 ml # Bowel Movements 0 Result Diagram: 06/10/17 0549 06/10/17 0549 Imaging Last 72 hours Impressions Lower Extremity Ultrasound 06/07/17 0000 Signed Impressions: Service Date/Time: Wednesday, June 07, 2017 08:45 - CONCLUSION: 1. There is bilateral DVT. More so on the right than the left. The DVT on the right appears stable compared to the previous of 04/26/17. 2. No prior imaging of the left leg is available however DVT on the left appears partially recanalized as well. 3. There are enlarged nodes evident in the groin bilaterally. The largest node in the right groin measures 7.0 x 3.4 x 0.8 CM. The largest node in the left groin measures 3.7 x 3.6 x 1.9 CM. These are significantly enlarged. It is possible these are reactive; however, underlying malignancy is not excluded. Grayson Rubin MD Chest X-Ray 06/06/17 5441 Signed Impressions: Service Date/Time: Tuesday, June 06, 2017 20:09 - CONCLUSION: No acute disease. Patricio Jenkins MD Objective Remarks LLE: dressings are clean dry and intact +vac. good seal. nvi. Assessment & Plan Assessment and Plan 1) Left Leg HW infection with osteomyelitis s/p CINDY with I&D and Abx spacer placement - POD 4 / last vac change day #0 Maintain wound VAC We'll plan on wound VAC next week Continue antibiotics Axel Mendez Jr. Jun 12, 2017 17:11
[2017-06-12] MEDS: cefTRIAXone INJ 2,000 MG in SODIUM CHLORIDE 0.9% INJ 100 ML IV SCH ×2 (18:17→18:22)
[2017-06-13] VITALS (8 sets, daily range): BP systolic 108–126; BP diastolic 56–76; PULSE 54–71; RESP 16–18; TEMP 96.8–98.1; O2SAT 96–99
[2017-06-13] MEDS: ACETAMINOPHEN/HYDROcodone 325 MG/10 MG TAB PO PRN ×6 (02:45→22:18)
[2017-06-13] MEDS: APIXABAN 5 MG TABLET PO SCH ×2 (06:25→17:53)
[2017-06-13 07:14] LABS: AUTOMATED NEUTROPHIL # 5.5 TH/MM3 (1.8-7.7); BASOPHIL # 0.1 TH/MM3 (0-0.2); EOSINOPHIL # 0.3 TH/MM3 (0-0.4); EOSINOPHIL % 2.9 % (0.0-4.0); HEMATOCRIT 35.7 % (39.0-51.0); HEMO FLAGS DIFF FINAL; LYMPH % 23.7 % (9.0-44.0); LYMPHOCYTE # 2.1 TH/MM3 (1.0-4.8); MEAN CELL VOLUME 89.5 FL (80.0-100.0); MEAN CORPUSCULAR HEMOGLOBIN 30.6 PG (27.0-34.0); MEAN CORPUSCULAR HGB CONC 34.2 % (32.0-36.0); MONO % 8.9 % (0.0-8.0); NEUT % 63.5 % (16.0-70.0); PLATELET COUNT 254 TH/MM3 (150-450); RED BLOOD COUNT 3.99 MIL/MM3 (4.50-5.90); RED CELL DISTRIBUTION WIDTH 14.1 % (11.6-17.2); WHITE BLOOD COUNT 8.7 TH/MM3 (4.0-11.0)
[2017-06-13 07:37] LABS: BICARBONATE 31.1 MEQ/L (21.0-32.0); POTASSIUM 4.8 MEQ/L (3.5-5.1)
[2017-06-13] MEDS: DOCUSATE SODIUM 50 MG/SENNA 8.6 MG TAB PO SCH ×2 (09:00→21:14)
[2017-06-13] MEDS: SODIUM CHLORIDE 0.9% FLUSH 10 ML FLUSH IV FLUSH SCH ×2 (09:00→21:15)
--- NOTE | 2017-06-13 10:23 | HHI.FPPN ---
Subjective Remarks Patient feels well. Patient c/o some left ankle pain that is well controlled with pain medications. Discussed plan of care with patient. (Axel Garcias MD R2) Objective Vitals Vital Signs Date Time Temp Pulse Resp B/P (MAP) Pulse Ox O2 Delivery O2 Flow Rate FiO2 06/13/17 08:00 54 06/13/17 08:00 97.3 54 16 108/59 (75) 96 06/13/17 04:23 97.1 69 18 116/75 (89) 98 06/13/17 00:20 98.0 59 18 126/76 (93) 99 06/12/17 20:23 97.7 89 18 119/70 (86) 98 06/12/17 20:00 73 06/12/17 16:00 97.0 69 16 119/77 (91) 96 06/12/17 14:13 95 21 06/12/17 12:43 95 21 06/12/17 11:39 97.7 58 18 119/68 (85) 97 I/O 06/12/17 06/12/17 06/12/17 06/13/17 06/13/17 06/13/17 07:00 15:00 23:00 07:00 15:00 23:00 Intake Total 875 ml 760 ml Output Total 1300 ml 600 ml 1200 ml Balance -1300 ml 275 ml -440 ml Intake Oral 775 ml 760 ml IV Total 100 ml Output Urine Total 1250 ml 600 ml 1200 ml Drainage Total 50 ml 0 ml # Bowel Movements 0 (Axel Garcias MD R2) Result Diagram: 06/13/17 0657 06/13/17656 Objective Remarks GENERAL: male, lying in bed in no obvious distress; he used his walker to transfer to the chair without bearing weight on his left leg SKIN: The left lower extremity is completely wrapped with wound vac in place with good seal draining minimal gross blood. CARDIOVASCULAR: Regular rate and rhythm without murmurs, gallops, or rubs. RESPIRATORY: Clear to auscultation. Breath sounds equal bilaterally. No wheezes , rales, or rhonchi. GASTROINTESTINAL: Abdomen soft, non-tender, nondistended. MUSCULOSKELETAL: See SKIN. Positive dorsalis pedal pulses bilaterally. Patient NVI with sensation and motor and cap refill intact in left foot. NEUROLOGICAL: Awake and alert. Procedures Patient is POD 4 s/p CINDY with I&D and placement of Abx in space around left ankle and tibia (on 06/09) (Axel Garcias MD R2) A/P Assessment and Plan Patient is a 52 year old male who presents with acute on chronic suspected acute on chronic osteomyelitis with abscess of left lower extremity. Pt went to OR for debridement, irrigation. Still considering AKA. Discharge Planning Pending post-op orthopedic recommendations and interventions, antibiotic plan per infectious disease. Anticipate d/c to SNF with PICC for [facility] abx vs AKA. Given his insurance and homelessness, SNF will only accept him for 30 days, so can d/c when he only has 30 more days of abx. (Axel Garcias MD R2) Attending Attestation Patient seen and examined. Case reviewed and discussed with the resident team. Agree with plan of care as discussed with me and documented in the resident note. (Sharon Salazar MD) Problem List: (1) Chronic osteomyelitis ICD Codes: M86.60 - Other chronic osteomyelitis, unspecified site Plan: Left Leg HW infection with osteomyelitis POD 4 s/p CINDY with I&D and Abx spacer placement; swab culture collected of lateral ankle wound today. Sent for cultures in order to tailor Abx. -wound cultures NGTD -maintain wound vac -wound VAC last changed yesterday -daily dressing changes of left leg with xeroform/4x4/BONI Continue IV antibiotics per ID (Infectious disease consult placed for chronic osteomyelitis and possibly infected hardware): - Ceftriaxone 2 g IV every 24 hours (06/07-present) - Blood cultures 2 show NGTD Antibiotic history: Vancomycin 1 g IV every 12 hours (one dose on 06/07) Zosyn 3.375 g IV every 6 hours (4 doses on 06/07) Intraoperative Vancomycin IV and Gentamicin irrigation at operative site (06/09) (2) Left leg cellulitis ICD Codes: L03.116 - Cellulitis of left lower limb Status: Acute Plan: Likely acute on chronic osteomyelitis with abscess; ID c/s appreciated - IV antibiotics as above, per ID Orthopedics consult interventions and recommendations appreciated above. Wound care consult to assist in dressing for the wound Blood, wound cultures NGTD Pain management as below: - Acetaminophen 650 mg PO q6hr PRN Fever and Pain 1-2 - [place] 10-325 mg PO q3hr PRN Pain 3-5 - 2x [place] 10-325 mg PO q4hr PRN Pain 6-10 - Morphine 4 mg IV Push q3hr PRN Breakthrough Pain - Zofran 4 mg IV q6hr PRN Nausea and Vomiting (3) Hx of deep venous thrombosis ICD Codes: Z86.718 - Personal history of other venous thrombosis and embolism Plan: -Cont Eliquis Impression and work up: History of DVTs. Noncompliance with anticoagulation for past month - supposed to be on Eliquis. - ultrasound showed bilateral DVTs of lower extremities, R>L - Restarted on home dose of Eliquis (4) Constipation ICD Codes: K59.00 - Constipation, unspecified Status: Acute Plan: -bowel regimen ordered -lactulose qid -glycerin supp today -Fleets enema PRN (5) Tobacco abuse ICD Codes: Z72.0 - Tobacco use Status: Chronic Plan: Hx of 1 pack/day x 6 years -Nicotine 14 mg Patch. (6) Fluid, Electrolyte, Nutrition and Prophylaxis Status: Chronic Plan: Fluids: none Electrolytes: Monitor and replete as necessary. Nutrition: Regular diet Prophylaxis: * GI prophylaxis not indicated at this time. * Patient receiving therapeutic Eliquis. (Axel Garcias MD R2) Axel Garcias MD R2 Jun 13, 2017 10:23 Sharon Salazar MD Jun 14, 2017 10:27
--- NOTE | 2017-06-13 12:58 | HHI.PR ---
Addendum to Inpatient Note Addendum Reason: Additional Documentation Additional Information OFF SERVICE TRANSFER NOTE Patient is a 52-year-old with a history of left lower leg surgery with hardware who presented with severe sepsis, which quickly resolved with IV fluid resuscitation and empiric antibiotics. Patient had acute on chronic osteomyelitis versus cellulitis versus infected hardware. Infectious disease and orthopedic surgery were consulted. Patient also had DVT for which he was not taking his anticoagulation, which was continued when he presented to the hospital. Orthopedic surgery took patient to the OR for Left Leg HW infection with osteomyelitis s/p CINDY with I&D and Abx spacer placement. Patient is POD 4 / last vac change yesterday. Plan to maintain wound VAC and continue antibiotics. Infectious disease plans on discharging patient to a [facility] facility for long-term IV antibiotics. Planning on 6 weeks of ceftriaxone. However, the [facility] facilities are only willing to accept this gentleman for 30 days given his insurance and homelessness. Thus, patient will likely have to stay here with us until he only has 30 more days of IV antibiotics, then he can be transferred to a [facility] facility to get the rest of his IV antibiotics. This should be coordinated with infectious disease for PICC placement and coordination of antibiotic regimen. However, patient may need AKA if patient continues to have problems with his leg. Axel Garcias MD R2 Jun 13, 2017 12:58
[2017-06-13] MEDS ORDERED: SOD PHOSPHATE/SOD BIPHOSPHATE (ADULT) ENEMA 133ML RECTAL PRN (16:30)
[2017-06-13] MEDS ORDERED: GLYCERIN ADULT 2 GM SUPP RECTAL ONE (16:30)
[2017-06-13] MEDS: cefTRIAXone INJ 2,000 MG in SODIUM CHLORIDE 0.9% INJ 100 ML IV SCH (17:52)
[2017-06-13] MEDS: LACTULOSE SYRUP 20 GM/30 ML CUP PO SCH ×2 (17:53→21:00)
[2017-06-14] VITALS (7 sets, daily range): BP systolic 116–131; BP diastolic 62–80; PULSE 57–74; RESP 16–24; TEMP 96.9–97.5; O2SAT 94–99
[2017-06-14] MEDS: ACETAMINOPHEN/HYDROcodone 325 MG/10 MG TAB PO PRN ×6 (03:30→23:36)
[2017-06-14] MEDS: APIXABAN 5 MG TABLET PO SCH ×2 (05:32→17:51)
[2017-06-14] MEDS: DOCUSATE SODIUM 50 MG/SENNA 8.6 MG TAB PO SCH ×2 (07:30→19:39)
[2017-06-14] MEDS: LACTULOSE SYRUP 20 GM/30 ML CUP PO SCH ×4 (07:30→19:39)
--- NOTE | 2017-06-14 08:32 | HHI.FPPN ---
Subjective Remarks No acute events overnight. AFVSS. Patient doing well this morning. Without complaints. He states his pain is well controlled with his current regimen. His only question is when he may be able to go home. He specifically denies any recent fevers or chills, CP, SOB, or worsening pain. Per RN his last BM was over a few days ago. Patient had been refusing lactulose. (Ismael Abrams MD R2) Objective Vitals Vital Signs Date Time Temp Pulse Resp B/P (MAP) Pulse Ox O2 Delivery O2 Flow Rate FiO2 06/14/17 08:00 97.0 57 17 127/80 (96) 94 06/14/17 04:24 97.0 60 18 120/62 (81) 98 06/14/17 00:20 97.5 65 18 131/73 (92) 96 06/13/17 20:27 98.1 68 18 125/69 (87) 98 06/13/17 20:00 63 06/13/17 16:00 96.8 60 18 115/56 (75) 96 06/13/17 12:00 97.0 71 17 110/61 (77) 97 06/13/17 09:10 98 21 I/O 06/13/17 06/13/17 06/13/17 06/14/17 06/14/17 06/14/17 07:00 15:00 23:00 07:00 15:00 23:00 Intake Total 760 ml 1440 ml 780 ml Output Total 1200 ml 825 ml 1800 ml Balance -440 ml 615 ml -1020 ml Intake Oral 760 ml 1440 ml 780 ml Output Urine Total 1200 ml 825 ml 1800 ml Drainage Total 0 ml 0 ml # Bowel Movements 0 0 (Ismael Abrams MD R2) Result Diagram: 06/13/17 0657 06/13/17 0657 Objective Remarks GENERAL: male, lying in bed in no obvious distress; he used his walker to transfer to the chair without bearing weight on his left leg SKIN: The left lower extremity is completely wrapped with wound vac in place with good seal draining minimal gross blood. Wrapping removed to visualize entire left lower extremity which does not appear to have any areas concerning for infection. CARDIOVASCULAR: Regular rate and rhythm without murmurs, gallops, or rubs. RESPIRATORY: Clear to auscultation. Breath sounds equal bilaterally. No wheezes , rales, or rhonchi. GASTROINTESTINAL: Abdomen soft, non-tender, nondistended. MUSCULOSKELETAL: Positive dorsalis pedal pulses bilaterally. Patient NVI with sensation and motor and cap refill intact in left foot. NEUROLOGICAL: Awake and alert. Procedures Patient is POD 4 s/p CINDY with I&D and placement of Abx in space around left ankle and tibia (on 06/09) (Ismael Abrams MD R2) A/P Assessment and Plan Patient is a 52 year old male who presented with acute on chronic osteomyelitis with abscess of left lower extremity. Pt went to OR for debridement, irrigation. Discharge Planning Pending post-op orthopedic recommendations and interventions, antibiotic plan per infectious disease. Anticipate d/c to SNF with PICC for long-term abx vs AKA if needed. Given his insurance and homelessness, SNF will only accept him for 30 days, so can d/c when he only has 30 more days of abx. (Ismael Abrams MD R2) Attending Attestation Patient seen and examined. Case reviewed and discussed with the resident team. Agree with plan of care as discussed with me and documented in the resident note. (Sharon Salazar MD) Problem List: (1) Chronic osteomyelitis ICD Codes: M86.60 - Other chronic osteomyelitis, unspecified site Plan: Left Leg HW infection with osteomyelitis s/p CINDY with I&D and Abx spacer placement; swab culture collected of lateral ankle wound today. Sent for cultures in order to tailor Abx. -wound cultures NGTD -maintain wound vac -daily dressing changes of left leg with xeroform/4x4/BONI Continue IV antibiotics per ID (Infectious disease consult placed for chronic osteomyelitis and possibly infected hardware): - Ceftriaxone 2 g IV every 24 hours (06/07-present) - Blood cultures 2 from 06/06 no growth after 5 days Antibiotic history: Vancomycin 1 g IV every 12 hours (one dose on 06/07) Zosyn 3.375 g IV every 6 hours (4 doses on 06/07) Intraoperative Vancomycin IV and Gentamicin irrigation at operative site (06/09) (2) Left leg cellulitis ICD Codes: L03.116 - Cellulitis of left lower limb Status: Acute Plan: Likely acute on chronic osteomyelitis with abscess; ID c/s appreciated - IV antibiotics as above, per ID Orthopedics consult interventions and recommendations appreciated above. Wound care consult to assist in dressing for the wound Blood, wound cultures NGTD Pain management as below: - Acetaminophen 650 mg PO q6hr PRN Fever and Pain 1-2 - [place] 10-325 mg PO q3hr PRN Pain 3-5 - 2x [place] 10-325 mg PO q4hr PRN Pain 6-10 - Morphine 4 mg IV Push q3hr PRN Breakthrough Pain - Zofran 4 mg IV q6hr PRN Nausea and Vomiting (3) Hx of deep venous thrombosis ICD Codes: Z86.718 - Personal history of other venous thrombosis and embolism Plan: -Cont Eliquis Impression and work up: History of DVTs. Noncompliance with anticoagulation for past month - supposed to be on Eliquis. - Ultrasound showed bilateral DVTs of lower extremities, R>L - Patient restarted on Eliquis (4) Constipation ICD Codes: K59.00 - Constipation, unspecified Status: Acute Plan: -lactulose qid, however patient is refusing -Pt given fleets enema this AM, continue prn -Miralax 17gm daily -Shaina-colace 1 tab po bid -Milk of mag prn (5) Tobacco abuse ICD Codes: Z72.0 - Tobacco use Status: Chronic Plan: Hx of 1 pack/day x 6 years -Nicotine 14 mg Patch. (6) Fluid, Electrolyte, Nutrition and Prophylaxis Status: Chronic Plan: Fluids: none Electrolytes: Monitor and replete as necessary. Nutrition: Regular diet Prophylaxis: * GI prophylaxis not indicated at this time. * Patient receiving therapeutic Eliquis. (Ismael Abrams MD R2) Ismael Abrams MD R2 Jun 14, 2017 08:31 Sharon Salazar MD Jun 15, 2017 13:28
[2017-06-14] MEDS: SODIUM CHLORIDE 0.9% FLUSH 10 ML FLUSH IV FLUSH SCH ×2 (09:00→19:39)
[2017-06-14] MEDS: POLYETHYLENE GLYCOL 17 GM PKG PO SCH (15:44)
[2017-06-14] MEDS: cefTRIAXone INJ 2,000 MG in SODIUM CHLORIDE 0.9% INJ 100 ML IV SCH (17:51)
[2017-06-15] VITALS: BP 108/65; PULSE 75; RESP 22; TEMP 97.5; O2SAT 96
[2017-06-15] MEDS: ACETAMINOPHEN/HYDROcodone 325 MG/10 MG TAB PO PRN ×5 (03:41→21:28)
[2017-06-15 04:00] VITALS: BP 141/75; PULSE 70; RESP 22; TEMP 96.1; O2SAT 95
[2017-06-15] MEDS: APIXABAN 5 MG TABLET PO SCH ×2 (05:30→17:14)
[2017-06-15 05:54] LABS: BICARBONATE 32.6 MEQ/L (21.0-32.0); POTASSIUM 4.8 MEQ/L (3.5-5.1)
[2017-06-15 08:00] VITALS: BP 132/80; PULSE 52; RESP 18; TEMP 95.7; O2SAT 98
[2017-06-15] MEDS: POLYETHYLENE GLYCOL 17 GM PKG PO SCH (08:37)
[2017-06-15] MEDS: LACTULOSE SYRUP 20 GM/30 ML CUP PO SCH ×4 (08:38→21:00)
[2017-06-15] MEDS: DOCUSATE SODIUM 50 MG/SENNA 8.6 MG TAB PO SCH ×2 (08:38→21:27)
[2017-06-15] MEDS: SODIUM CHLORIDE 0.9% FLUSH 10 ML FLUSH IV FLUSH SCH ×2 (08:39→21:30)
[2017-06-15 12:00] VITALS: BP 107/58; PULSE 60; RESP 16; TEMP 96.9; O2SAT 94
--- NOTE | 2017-06-15 15:12 | HHI.FPPN ---
Subjective Remarks No acute events overnight. AFVSS. Patient doing well this morning. Without complaints. He states his pain is controlled. Had bowel movement x1. (Zenaida Cunha MD R1) Objective Vitals Vital Signs Date Time Temp Pulse Resp B/P (MAP) Pulse Ox O2 Delivery O2 Flow Rate FiO2 06/15/17 12:00 96.9 60 16 107/58 (74) 94 06/15/17 08:00 95.7 52 18 132/80 (97) 98 06/15/17 04:41 18 06/15/17 04:00 96.1 70 22 141/75 (97) 95 06/15/17 00:00 97.5 75 22 108/65 (79) 96 06/14/17 20:00 97.4 69 24 116/74 (88) 97 06/14/17 19:50 74 06/14/17 16:00 97.4 66 17 118/80 (93) 94 I/O 06/14/17 06/14/17 06/14/17 06/15/17 06/15/17 06/15/17 07:00 15:00 23:00 07:00 15:00 23:00 Intake Total 780 ml 1780 ml 320 ml Output Total 1800 ml 500 ml 525 ml 400 ml Balance -1020 ml 1280 ml -205 ml -400 ml Intake Oral 780 ml 1680 ml 320 ml IV Total 100 ml Output Urine Total 1800 ml 500 ml 525 ml 400 ml Drainage Total 0 ml 0 ml # Bowel Movements 0 0 1 (Zenaida Cunha MD R1) Result Diagram: 06/13/17 0657 06/15/17 0449 Objective Remarks GENERAL: male, lying in bed in no obvious distress. SKIN: The left lower extremity is completely wrapped with wound vac in place with good seal draining minimal gross blood. Wrapping removed to visualize entire left lower extremity which does not appear to have any areas concerning for infection. CARDIOVASCULAR: Regular rate and rhythm without murmurs, gallops, or rubs. RESPIRATORY: CLTAB GASTROINTESTINAL: Abdomen soft, non-tender, nondistended. MUSCULOSKELETAL: Able to move toes of left foot. Patient NVI with sensation and motor and cap refill intact in left foot. NEUROLOGICAL: Awake and alert. Procedures Patient is POD 4 s/p CINDY with I&D and placement of Abx in space around left ankle and tibia (on 06/09) (Zenaida Cunha MD R1) A/P Assessment and Plan Patient is a 52 year old male who presented with acute on chronic osteomyelitis with abscess of left lower extremity. Pt went to OR for debridement, irrigation. 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 Given his insurance and homelessness, SNF will only accept him for 30 days, so can d/c when he only has 30 more days of abx. Per ID, patient will need total days of antibiotics = 6weeks. Patient will need to be in hospital until 06/20 to complete first 12 days of treatment; afterwards, can complete rest of treatment at SNF starting 06/21. This was calculated based on patient's surgery date (). (Zenaida Cunha MD R1) Attending Attestation Patient seen and examined. Case reviewed and discussed with the resident team. Agree with plan of care as discussed with me and documented in the resident note. (Sharon Salazar MD) Problem List: (1) Chronic osteomyelitis ICD Codes: M86.60 - Other chronic osteomyelitis, unspecified site Plan: Left Leg HW infection with osteomyelitis s/p CINDY with I&D and Abx spacer placement.Intraoperative Vancomycin IV and Gentamicin irrigation at operative site (06/09). POD #6. -wound cultures NGTD -maintain wound vac -daily dressing changes of left leg with xeroform/4x4/BONI Continue IV antibiotics per ID (Infectious disease consult placed for chronic osteomyelitis and possibly infected hardware): - Ceftriaxone 2 g IV every 24 hours (06/07-present), Day # (2) Left leg cellulitis ICD Codes: L03.116 - Cellulitis of left lower limb Status: Acute Plan: Likely acute on chronic osteomyelitis with abscess; ID c/s appreciated - IV antibiotics as above, per ID Orthopedics consult interventions and recommendations appreciated above. Wound care consult to assist in dressing for the wound Blood, wound cultures NGTD Pain management as below: - Acetaminophen 650 mg PO q6hr PRN Fever and Pain 1-2 - [place] 10-325 mg PO q3hr PRN Pain 3-5 - 2x [place] 10-325 mg PO q4hr PRN Pain 6-10 - Morphine 4 mg IV Push q3hr PRN Breakthrough Pain - Zofran 4 mg IV q6hr PRN Nausea and Vomiting (3) Hx of deep venous thrombosis ICD Codes: Z86.718 - Personal history of other venous thrombosis and embolism Plan: -Cont Eliquis (4) Tobacco abuse ICD Codes: Z72.0 - Tobacco use Status: Chronic Plan: Hx of 1 pack/day x 6 years -Nicotine 14 mg Patch. (5) Fluid, Electrolyte, Nutrition and Prophylaxis Status: Chronic Plan: Fluids: none Electrolytes: Monitor and replete as necessary. Nutrition: Regular diet Prophylaxis: * GI prophylaxis not indicated at this time. * Patient receiving therapeutic Eliquis. (Zenaida Cunha MD R1) Zenaida Cunha MD R1 Jun 15, 2017 15:12 Sharon Salazar MD Jun 15, 2017 15:39
[2017-06-15 16:00] VITALS: BP 120/77; PULSE 80; RESP 17; TEMP 97.8; O2SAT 98
[2017-06-15] MEDS: cefTRIAXone INJ 2,000 MG in SODIUM CHLORIDE 0.9% INJ 100 ML IV SCH (17:14)
[2017-06-15 20:00] VITALS: BP 160/87; PULSE 72; RESP 20; TEMP 97.9; O2SAT 100
[2017-06-16] VITALS: BP 121/69; PULSE 80; RESP 20; TEMP 97.9; O2SAT 99
[2017-06-16] MEDS: ACETAMINOPHEN/HYDROcodone 325 MG/10 MG TAB PO PRN ×6 (03:44→22:14)
[2017-06-16 04:00] VITALS: BP 101/61; PULSE 72; RESP 18; TEMP 96.6; O2SAT 96
[2017-06-16] MEDS: APIXABAN 5 MG TABLET PO SCH ×2 (05:47→16:33)
[2017-06-16 08:00] VITALS: BP 102/59; PULSE 55; RESP 16; TEMP 96.6; O2SAT 93
[2017-06-16] MEDS: DOCUSATE SODIUM 50 MG/SENNA 8.6 MG TAB PO SCH ×2 (08:13→22:14)
[2017-06-16] MEDS: POLYETHYLENE GLYCOL 17 GM PKG PO SCH (08:14)
[2017-06-16] MEDS: SODIUM CHLORIDE 0.9% FLUSH 10 ML FLUSH IV FLUSH SCH ×2 (08:14→22:15)
[2017-06-16] MEDS: LACTULOSE SYRUP 20 GM/30 ML CUP PO SCH ×4 (08:14→21:00)
--- NOTE | 2017-06-16 09:28 | PD.ORT.PN ---
Subjective Subjective Remarks Resting comfortably with no new complaints Objective Vitals Vital Signs Date Time Temp Pulse Resp B/P (MAP) Pulse Ox O2 Delivery O2 Flow Rate FiO2 06/16/17 08:00 96.6 55 16 102/59 (73) 93 06/16/17 04:44 18 06/16/17 04:00 96.6 72 18 101/61 (74) 96 06/16/17 00:00 97.9 80 20 121/69 (86) 99 06/15/17 20:00 97.9 72 20 160/87 (111) 100 06/15/17 16:00 97.8 80 17 120/77 (91) 98 06/15/17 12:00 96.9 60 16 107/58 (74) 94 I/O 06/15/17 06/15/17 06/15/17 06/16/17 06/16/17 06/16/17 07:00 15:00 23:00 07:00 15:00 23:00 Intake Total 320 ml 1000 ml Output Total 525 ml 400 ml 1575 ml Balance -205 ml -400 ml -575 ml Intake Oral 320 ml 1000 ml Output Urine Total 525 ml 400 ml 1400 ml Drainage Total 0 ml 175 ml # Bowel Movements 1 0 Result Diagram: 06/13/17 0657 06/15/17 0449 Imaging Last 72 hours Impressions Lower Extremity Ultrasound 06/07/17 0000 Signed Impressions: Service Date/Time: Wednesday, June 07, 2017 08:45 - CONCLUSION: 1. There is bilateral DVT. More so on the right than the left. The DVT on the right appears stable compared to the previous of 04/26/17. 2. No prior imaging of the left leg is available however DVT on the left appears partially recanalized as well. 3. There are enlarged nodes evident in the groin bilaterally. The largest node in the right groin measures 7.0 x 3.4 x 0.8 CM. The largest node in the left groin measures 3.7 x 3.6 x 1.9 CM. These are significantly enlarged. It is possible these are reactive; however, underlying malignancy is not excluded. Grayson Rubin MD Chest X-Ray 06/06/17 2842 Signed Impressions: Service Date/Time: Tuesday, June 06, 2017 20:09 - CONCLUSION: No acute disease. Patricio Jenkins MD Objective Remarks LLE: dressings are clean dry and intact +vac. good seal. nvi. Wound VAC removed and once dry dressings applied to open wound over lateral ankle Assessment & Plan Assessment and Plan 1) Left Leg HW infection with osteomyelitis s/p CINDY with I&D and Abx spacer placement - POD 7 06/06 Discontinue wound VAC Dressing changes: Bacitracin and Adaptic over open wounds, Xeroform over surgical wounds and wet-to-dry dressings over open wound of lateral ankle RACHEL NAILS Continue antibiotics Axel Mendez Jr. Jun 16, 2017 09:28
[2017-06-16 12:00] VITALS: BP 113/74; PULSE 71; RESP 17; TEMP 96.6; O2SAT 99
--- NOTE | 2017-06-16 13:44 | HHI.FPPN ---
Subjective Remarks Patient states he is doing well today. Adequate intake output. Afebrile overnight. Wound VAC was removed today. States that he's feeling some symptoms of depression from lack of mobility since his hospitalization. Would like to be on depression medication. Would also like to know about the he will be discharged to. (Zenaida Cunha MD R1) Objective Vitals Vital Signs Date Time Temp Pulse Resp B/P (MAP) Pulse Ox O2 Delivery O2 Flow Rate FiO2 06/16/17 12:00 96.6 71 17 113/74 (87) 99 06/16/17 08:00 96.6 55 16 102/59 (73) 93 06/16/17 04:44 18 06/16/17 04:00 96.6 72 18 101/61 (74) 96 06/16/17 00:00 97.9 80 20 121/69 (86) 99 06/15/17 20:00 97.9 72 20 160/87 (111) 100 06/15/17 16:00 97.8 80 17 120/77 (91) 98 I/O 06/15/17 06/15/17 06/15/17 06/16/17 06/16/17 06/16/17 07:00 15:00 23:00 07:00 15:00 23:00 Intake Total 320 ml 1000 ml Output Total 525 ml 400 ml 1575 ml Balance -205 ml -400 ml -575 ml Intake Oral 320 ml 1000 ml Output Urine Total 525 ml 400 ml 1400 ml Drainage Total 0 ml 175 ml # Bowel Movements 1 0 (Zenaida Cunha MD R1) Result Diagram: 06/13/17 0657 06/15/17 0449 Objective Remarks GENERAL: male, lying in bed in no obvious distress. SKIN: Left lower extremity is bandaged, no drainage, is clean dry and intact. CARDIOVASCULAR: Regular rate and rhythm without murmurs, gallops, or rubs. RESPIRATORY: CLTAB GASTROINTESTINAL: Abdomen soft, non-tender, nondistended. MUSCULOSKELETAL: Able to move toes of left foot. Patient NVI with sensation and motor and cap refill intact in left foot. NEUROLOGICAL: Awake and alert. Procedures Patient is POD 7 s/p CINDY with I&D and placement of Abx in space around left ankle and tibia (on 06/09) (Zenaida Cunha MD R1) A/P Assessment and Plan Patient is a 52 year old male POD #7 who presented with acute on chronic osteomyelitis with abscess of left lower extremity. Pt went to OR for debridement, irrigation. 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 Given his insurance and homelessness, SNF will only accept him for 30 days, so can d/c when he only has 30 more days of abx. Per ID, patient will need total days of antibiotics = 6weeks. Patient will need to be in hospital until 06/20 to complete first 12 days of treatment; afterwards, can complete rest of treatment at SNF starting 06/21. This was calculated based on patient's surgery date (). (Zenaida Cunha MD R1) Attending Attestation Patient seen and examined. Case reviewed and discussed with the resident team. Agree with plan of care as discussed with me and documented in the resident note. (Sharon Salazar MD) Problem List: (1) Chronic osteomyelitis ICD Codes: M86.60 - Other chronic osteomyelitis, unspecified site Status: Chronic Plan: POD #7. Left Leg HW infection with osteomyelitis s/p CIDNY with I&D and Abx spacer placement.Intraoperative Vancomycin IV and Gentamicin irrigation at operative site (06/09). Wound VAC removed today 06/16 Xeroform, wet-to-dry packing, and [place] wrap Continue IV antibiotics per ID (Infectious disease consult placed for chronic osteomyelitis and possibly infected hardware): - Ceftriaxone 2 g IV every 24 hours (06/07-present), Day #10 (2) Left leg cellulitis ICD Codes: L03.116 - Cellulitis of left lower limb Status: Acute Plan: Likely acute on chronic osteomyelitis with abscess; ID c/s appreciated - IV antibiotics as above, per ID Pain management as below: - Acetaminophen 650 mg PO q6hr PRN Fever and Pain 1-2 - [place] 10-325 mg PO q3hr PRN Pain 3-5 - 2x [place] 10-325 mg PO q4hr PRN Pain 6-10 - Morphine 4 mg IV Push q3hr PRN Breakthrough Pain (3) Depression ICD Codes: F32.9 - Major depressive disorder, single episode, unspecified Plan: -Prozac 10 mg by mouth daily (4) Hx of deep venous thrombosis ICD Codes: Z86.718 - Personal history of other venous thrombosis and embolism Status: Chronic Plan: -Cont Eliquis (5) Tobacco abuse ICD Codes: Z72.0 - Tobacco use Status: Chronic Plan: Hx of 1 pack/day x 6 years -Nicotine 14 mg Patch. (6) Fluid, Electrolyte, Nutrition and Prophylaxis Status: Chronic Plan: Fluids: none Electrolytes: Monitor and replete as necessary. Nutrition: Regular diet Prophylaxis: * GI prophylaxis not indicated at this time. * Patient receiving therapeutic Eliquis. (Zenaida Cunha MD R1) Zenaida Cunha MD R1 Jun 16, 2017 13:44 Sharon Salazar MD Jun 16, 2017 13:52
[2017-06-16 15:58] VITALS: BP 108/63; PULSE 64; RESP 16; TEMP 97; O2SAT 98
[2017-06-16] MEDS: cefTRIAXone INJ 2,000 MG in SODIUM CHLORIDE 0.9% INJ 100 ML IV SCH (16:34)
[2017-06-16] MEDS: FLUoxetine HCL 10 MG CAP PO SCH (16:35)
[2017-06-16 20:00] VITALS: BP 117/73; PULSE 72; RESP 17; TEMP 97.6; O2SAT 98
[2017-06-17] VITALS (8 sets, daily range): BP systolic 114–149; BP diastolic 70–87; PULSE 64–78; RESP 15–17; TEMP 96.1–97; O2SAT 98–100
[2017-06-17] MEDS: ACETAMINOPHEN/HYDROcodone 325 MG/10 MG TAB PO PRN ×5 (03:31→20:22)
[2017-06-17] MEDS: APIXABAN 5 MG TABLET PO SCH ×2 (06:20→16:33)
--- NOTE | 2017-06-17 07:23 | PD.ORT.PN ---
Subjective Subjective Remarks Resting comfortably with no new complaints Objective Vitals Vital Signs Date Time Temp Pulse Resp B/P (MAP) Pulse Ox O2 Delivery O2 Flow Rate FiO2 06/17/17 04:00 96.1 65 17 122/76 (91) 99 06/17/17 00:00 97.0 68 17 114/70 (85) 98 06/16/17 20:00 97.6 72 17 117/73 (88) 98 06/16/17 15:58 97.0 64 16 108/63 (78) 98 06/16/17 12:00 96.6 71 17 113/74 (87) 99 06/16/17 08:00 96.6 55 16 102/59 (73) 93 I/O 06/16/17 06/16/17 06/16/17 06/17/17 06/17/17 06/17/17 07:00 15:00 23:00 07:00 15:00 23:00 Intake Total 2000 ml 240 ml Output Total 900 ml 500 ml Balance 1100 ml -260 ml Intake Oral 2000 ml 240 ml Output Urine Total 900 ml 500 ml # Bowel Movements 0 Result Diagram: 06/13/17 0657 06/15/17 0449 Imaging Last 72 hours Impressions Lower Extremity Ultrasound 06/07/17 0000 Signed Impressions: Service Date/Time: Wednesday, June 07, 2017 08:45 - CONCLUSION: 1. There is bilateral DVT. More so on the right than the left. The DVT on the right appears stable compared to the previous of 04/26/17. 2. No prior imaging of the left leg is available however DVT on the left appears partially recanalized as well. 3. There are enlarged nodes evident in the groin bilaterally. The largest node in the right groin measures 7.0 x 3.4 x 0.8 CM. The largest node in the left groin measures 3.7 x 3.6 x 1.9 CM. These are significantly enlarged. It is possible these are reactive; however, underlying malignancy is not excluded. Grayson Rubin MD Chest X-Ray 06/06/17 0303 Signed Impressions: Service Date/Time: Tuesday, June 06, 2017 20:09 - CONCLUSION: No acute disease. Patricio Jenkins MD Objective Remarks F lower extremity: Clean dry dressings intact. Distally good tissue perfusion with capillary refills. Active movement of toes Assessment & Plan Assessment and Plan 1) Left Leg removal of hardware with infection with osteomyelitis with irrigation debridement and antibiotic spacer placement- POD 8 06/06 Dressing changes: Bacitracin and Adaptic over open wounds, Xeroform over surgical wounds and wet-to-dry dressings over open wound of lateral ankle RACHEL NAILS Continue antibiotics Axel Mendez Jr. Jun 17, 2017 07:23
[2017-06-17] MEDS: FLUoxetine HCL 10 MG CAP PO SCH (08:24)
[2017-06-17] MEDS: DOCUSATE SODIUM 50 MG/SENNA 8.6 MG TAB PO SCH ×2 (08:25→20:21)
[2017-06-17] MEDS: SODIUM CHLORIDE 0.9% FLUSH 10 ML FLUSH IV FLUSH SCH ×2 (08:26→20:23)
[2017-06-17] MEDS: LACTULOSE SYRUP 20 GM/30 ML CUP PO SCH ×4 (08:26→20:23)
[2017-06-17] MEDS: POLYETHYLENE GLYCOL 17 GM PKG PO SCH (08:26)
--- NOTE | 2017-06-17 09:47 | HHI.FPPN ---
Subjective Remarks No acute events overnight. AFVSS. Patient states his pain overall has been well controlled. NWB of LLE per ortho. Patient denies any fevers or chills, CP, SOB, cough. (Ismael Abrams MD R2) Objective Vitals Vital Signs Date Time Temp Pulse Resp B/P (MAP) Pulse Ox O2 Delivery O2 Flow Rate FiO2 06/17/17 08:00 96.2 65 16 148/87 (107) 100 06/17/17 04:00 96.1 65 17 122/76 (91) 99 06/17/17 00:00 97.0 68 17 114/70 (85) 98 06/16/17 20:00 97.6 72 17 117/73 (88) 98 06/16/17 15:58 97.0 64 16 108/63 (78) 98 06/16/17 12:00 96.6 71 17 113/74 (87) 99 I/O 06/16/17 06/16/17 06/16/17 06/17/17 06/17/17 06/17/17 07:00 15:00 23:00 07:00 15:00 23:00 Intake Total 2000 ml 240 ml Output Total 900 ml 500 ml Balance 1100 ml -260 ml Intake Oral 2000 ml 240 ml Output Urine Total 900 ml 500 ml # Bowel Movements 0 (Ismael Abrams MD R2) Result Diagram: 06/13/17 0657 06/15/17 0449 Objective Remarks GENERAL: male, lying in bed in no obvious distress. SKIN: Left lower extremity wrapped, no drainage, is clean dry and intact. CARDIOVASCULAR: Regular rate and rhythm without murmurs, gallops, or rubs. RESPIRATORY: CTAB GASTROINTESTINAL: Abdomen soft, non-tender, nondistended. MUSCULOSKELETAL: Able to move toes of left foot. Motor grossly normal. NEUROLOGICAL: Awake and alert. Procedures Patient is POD 7 s/p CINDY with I&D and placement of Abx in space around left ankle and tibia (on 06/09) (Ismael Abrams MD R2) A/P Assessment and Plan Patient is a 52 year old male POD #8 who presented with acute on chronic osteomyelitis with abscess of left lower extremity. 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 Given his insurance and homelessness, SNF will only accept him for 30 days, so can d/c when he only has 30 more days of abx. Per ID, patient will need total days of antibiotics for 6 weeks. Patient will need to be in hospital until 06/20 to complete first 12 days of treatment; afterwards, can complete rest of treatment at SNF starting 06/21. (Ismael Abrams MD R2) Attending Attestation Patient seen and examined. Case reviewed and discussed with the resident team. Agree with plan of care as discussed with me and documented in the resident note. (Sharon Salazar MD) Problem List: (1) Chronic osteomyelitis ICD Codes: M86.60 - Other chronic osteomyelitis, unspecified site Status: Chronic Plan: POD #8. Left Leg HW infection with osteomyelitis s/p CINDY with I&D and Abx spacer placement. Intraoperative Vancomycin IV and Gentamicin irrigation at operative site (06/09). Wound VAC removed today 06/16 Dressing changes per ortho: Bacitracin and Adaptic over open wounds, Xeroform over surgical wounds and wet-to-dry dressings over open wound of lateral ankle Continue IV antibiotics per ID (Infectious disease consult placed for chronic osteomyelitis and possibly infected hardware): - Ceftriaxone 2 g IV every 24 hours (06/07-present), Day #10 (2) Left leg cellulitis ICD Codes: L03.116 - Cellulitis of left lower limb Status: Acute Plan: Likely acute on chronic osteomyelitis with abscess; ID consulted - IV antibiotics as above, per ID Pain management as below: - Acetaminophen 650 mg PO q6hr PRN Fever and Pain 1-2 - [place] 10-325 mg PO q3hr PRN Pain 3-5 - 2x [place] 10-325 mg PO q4hr PRN Pain 6-10 - Morphine 4 mg IV Push q3hr PRN Breakthrough Pain (3) Depression ICD Codes: F32.9 - Major depressive disorder, single episode, unspecified Plan: Continue Prozac 10 mg po daily (4) Hx of deep venous thrombosis ICD Codes: Z86.718 - Personal history of other venous thrombosis and embolism Status: Chronic Plan: -Cont Eliquis (5) Tobacco abuse ICD Codes: Z72.0 - Tobacco use Status: Chronic Plan: Hx of 1 pack/day x 6 years -Nicotine 14 mg Patch. (6) Fluid, Electrolyte, Nutrition and Prophylaxis Status: Chronic Plan: Fluids: none Electrolytes: Monitor and replete as necessary. Nutrition: Regular diet Prophylaxis: * GI prophylaxis not indicated at this time. * Patient receiving therapeutic Eliquis. (Ismael Abrams MD R2) Ismael Abrams MD R2 Jun 17, 2017 09:47 Sharon Salazar MD Jun 17, 2017 15:45
[2017-06-17] MEDS: cefTRIAXone INJ 2,000 MG in SODIUM CHLORIDE 0.9% INJ 100 ML IV SCH (16:34)
[2017-06-18] VITALS (8 sets, daily range): BP systolic 125–137; BP diastolic 76–82; PULSE 56–81; RESP 17–20; TEMP 96.1–98.2; O2SAT 98–100
[2017-06-18] MEDS: ACETAMINOPHEN/HYDROcodone 325 MG/10 MG TAB PO PRN ×6 (00:40→21:17)
[2017-06-18] MEDS: APIXABAN 5 MG TABLET PO SCH ×2 (04:50→16:52)
[2017-06-18] MEDS: DOCUSATE SODIUM 50 MG/SENNA 8.6 MG TAB PO SCH ×2 (08:39→19:59)
[2017-06-18] MEDS: LACTULOSE SYRUP 20 GM/30 ML CUP PO SCH ×4 (08:39→20:03)
[2017-06-18] MEDS: FLUoxetine HCL 10 MG CAP PO SCH (08:39)
[2017-06-18] MEDS: POLYETHYLENE GLYCOL 17 GM PKG PO SCH (08:41)
[2017-06-18] MEDS: SODIUM CHLORIDE 0.9% FLUSH 10 ML FLUSH IV FLUSH SCH ×2 (08:43→20:03)
--- NOTE | 2017-06-18 10:04 | HHI.FPPN ---
Subjective Remarks Patient is doing well today. Endorses increased pain in his left leg, would like pain medication. Otherwise is ambulating well, appropriate intake/output. Denies chest pain/shortness of breath/fevers/obstipation. (Zenaida Cunha MD R1) Objective Vitals Vital Signs Date Time Temp Pulse Resp B/P (MAP) Pulse Ox O2 Delivery O2 Flow Rate FiO2 06/18/17 08:00 97.0 56 17 125/79 (94) 100 06/18/17 06:58 18 06/18/17 04:00 98.2 70 17 133/79 (97) 98 06/18/17 00:00 96.1 70 17 130/76 (94) 98 06/17/17 20:00 96.9 77 17 149/81 (103) 98 06/17/17 19:30 78 06/17/17 18:30 64 06/17/17 16:00 96.9 73 15 122/77 (92) 98 06/17/17 12:00 96.9 73 16 121/76 (91) 98 I/O 06/17/17 06/17/17 06/17/17 06/18/17 06/18/17 06/18/17 07:00 15:00 23:00 07:00 15:00 23:00 Intake Total 240 ml 340 ml 240 ml Output Total 500 ml 1000 ml 1750 ml Balance -260 ml -660 ml -1510 ml Intake Oral 240 ml 240 ml 240 ml IV Total 100 ml Output Urine Total 500 ml 1000 ml 1750 ml # Bowel Movements 0 (Zenaida Cunha MD R1) Result Diagram: 06/15/17 0449 Objective Remarks GENERAL: male, lying in bed in no obvious distress. SKIN: Left lower extremity wrapped, no drainage, is clean dry and intact. Slight warmth of the skin in the left lower extremity. Mild amount of swelling observed at the heel, otherwise no diffuse swelling of the leg. No drainage or erythema or skin breakdown noted. Hyperpigmentation of the area between the knee and the ankle observed. CARDIOVASCULAR: Regular rate and rhythm without murmurs, gallops, or rubs. RESPIRATORY: CTAB GASTROINTESTINAL: Abdomen soft, non-tender, nondistended. MUSCULOSKELETAL: Able to move toes of left foot. Motor grossly normal. Dorsalis pedis pulses intact. NEUROLOGICAL: Awake and alert. Procedures Patient is POD 8 s/p CINDY with I&D and placement of Abx in space around left ankle and tibia (on 06/09) (Zenaida Cunha MD R1) A/P Assessment and Plan Patient is a 52 year old male POD #9 who presented with acute on chronic osteomyelitis with abscess of left lower extremity. 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 Given his insurance and homelessness, it was planned for patient to continue hospital treatment until 06/20 to complete first 12 days of treatment; afterwards, can complete rest of treatment at SNF starting 06/21. Spoke with case management today. [facility] may be able to cover the costs for the rest of hospital treatment and accept him sooner. Preparing patient for discharge. PICC was ordered and infusion care plan for Abx was discussed with infectious disease. (Zenaida Cunha MD R1) Attending Attestation Patient seen and examined. Case reviewed and discussed with the resident team. Agree with plan of care as discussed with me and documented in the resident note. Patient with some increase in pain into the foot on the bottom and medial side. This is likely due to the surgical procedure, the drain being removed and the patient increasing his mobility. Over the past 24 hours his has had a temp as low as 96.1 -- at this time will monitor closely and check CBC to monitor WBC -- if T goes below 96 will workup further. (Sharon Salazar MD) Problem List: (1) Chronic osteomyelitis ICD Codes: M86.60 - Other chronic osteomyelitis, unspecified site Status: Chronic Plan: POD #9. Left Leg HW infection with osteomyelitis s/p CINDY with I&D and Abx spacer placement. Intraoperative Vancomycin IV and Gentamicin irrigation at operative site (06/09). Wound VAC removed today 06/16 Dressing changes per ortho: Bacitracin and Adaptic over open wounds, Xeroform over surgical wounds and wet-to-dry dressings over open wound of lateral ankle Continue IV antibiotics per ID (Infectious disease consult placed for chronic osteomyelitis and possibly infected hardware): - Ceftriaxone 2 g IV every 24 hours (06/07-present), Day #11 (2) Left leg cellulitis ICD Codes: L03.116 - Cellulitis of left lower limb Status: Acute Plan: Likely acute on chronic osteomyelitis with abscess; ID consulted - IV antibiotics as above, per ID - We'll continue current pain regimen for now Pain management as below: - Acetaminophen 650 mg PO q6hr PRN Fever and Pain 1-2 - [place] 10-325 mg PO q3hr PRN Pain 3-5 - 2x [place] 10-325 mg PO q4hr PRN Pain 6-10 - Morphine 4 mg IV Push q3hr PRN Breakthrough Pain (3) Depression ICD Codes: F32.9 - Major depressive disorder, single episode, unspecified Status: Chronic Plan: Continue Prozac 10 mg po daily (4) Hx of deep venous thrombosis ICD Codes: Z86.718 - Personal history of other venous thrombosis and embolism Status: Chronic Plan: -Cont Eliquis (5) Tobacco abuse ICD Codes: Z72.0 - Tobacco use Status: Chronic Plan: Hx of 1 pack/day x 6 years -Nicotine 14 mg Patch. (6) Fluid, Electrolyte, Nutrition and Prophylaxis Status: Chronic Plan: Fluids: none Electrolytes: Monitor and replete as necessary. Nutrition: Regular diet Prophylaxis: * GI prophylaxis not indicated at this time. * Patient receiving therapeutic Eliquis. (Zenaida Cunha MD R1) Zenaida Cunha MD R1 Jun 18, 2017 10:04 Sharon Salazar MD Jun 18, 2017 17:24
--- NOTE | 2017-06-18 10:08 | HHI.FF ---
Infusion Therapy Location of Infusion Therapy: [facility] Infusion Therapy Order Patient Information Patient Weight 98.4 kg Diagnosis: (1) Chronic osteomyelitis involving left ankle and foot Coded Allergies: No Known Allergies (Unverified , 06/06/17) Administer Medication Ceftriaxone 2 grams IV q 24 hours Stop Treatment: Jul 19, 2017 Additional Information Venous access: PICC Line Additional Instructions [x] Peripheral flush and dressing changes per protocol [x] Implanted port and central online project manager: * Implanted port: 10 ml Normal Saline followed by 5 ml Heparin 100 units/ml Heparin flush after each use and monthly to maintain. [] May leave port accessed during therapy. [] May leave peripheral site accessed for duration of therapy. [x] If patient has SOB or respiratory distress, check oxygen saturation. If less than 90% or clinical signs of respiratory distress, administer oxygen at 2 L/min. via nasal cannula and notify physician. [x] Anaphylaxis/Reaction orders: * Stop infusion. * Keep IV line open with saline flush. * Notify physician. * Monitor vital signs every 15 minutes until symptoms resolve. * Check Oxygen saturation; Oxygen at 2 L/min. via nasal cannula if less than 90% or clinical signs of respiratory distress. * Administer diphenhydramine (Benadryl) 25 mg IV STAT, (unless patient has received as pre-med). May repeat once, if necessary. * Solu-Cortef 250 mg IVP over 30-60 seconds, use 100 mg vials for each dissolution. * Epinephrine (1mg/1 ml) 0.3 mg subcutaneously or IVP now with any signs of respiratory distress. * Check with physician for new additional pre-med orders if patient is re- challenged or re-treated. [x] May remove PICC line when treatment complete, after confirming with Physician. [x] If the patient is admitted to the hospital, the ED, or transferred via [facility] , complete transfer form including medication reconciliation order sheet. Laboratory Tests Weekly Labs: BMP Additional Information Written By Dr Milagros Zhang covering for Dr. Shell Hardin. Fax lab results to [phone] Terry Zhang MD Jun 18, 2017 10:08
[2017-06-18] MEDS: MORPHINE SULFATE 4 MG/ML INJ IV PUSH PRN ×4 (10:10→23:48)
[2017-06-18] MEDS: cefTRIAXone INJ 2,000 MG in SODIUM CHLORIDE 0.9% INJ 100 ML IV SCH (16:51)
[2017-06-18 21:05] LABS: AUTOMATED NEUTROPHIL # 2.8 TH/MM3 (1.8-7.7); BASOPHIL # 0.1 TH/MM3 (0-0.2); BASOPHIL % 1.4 % (0.0-2.0); EOSINOPHIL # 0.2 TH/MM3 (0-0.4); EOSINOPHIL % 3.4 % (0.0-4.0); HEMO FLAGS DIFF FINAL; LYMPH % 38.1 % (9.0-44.0); LYMPHOCYTE # 2.2 TH/MM3 (1.0-4.8); MEAN CELL VOLUME 89.9 FL (80.0-100.0); MEAN CORPUSCULAR HEMOGLOBIN 30.3 PG (27.0-34.0); MEAN CORPUSCULAR HGB CONC 33.7 % (32.0-36.0); MONO % 9.4 % (0.0-8.0); NEUT % 47.7 % (16.0-70.0); PLATELET COUNT 288 TH/MM3 (150-450); RED CELL DISTRIBUTION WIDTH 14.3 % (11.6-17.2); WHITE BLOOD COUNT 5.9 TH/MM3 (4.0-11.0)
[2017-06-19 00:12] VITALS: BP 109/63; PULSE 82; RESP 18; TEMP 97.7; O2SAT 96
[2017-06-19] MEDS: ACETAMINOPHEN/HYDROcodone 325 MG/10 MG TAB PO PRN ×3 (01:41→11:19)
[2017-06-19 04:13] VITALS: BP 135/84; PULSE 82; RESP 18; TEMP 97; O2SAT 98
[2017-06-19] MEDS: MORPHINE SULFATE 4 MG/ML INJ IV PUSH PRN (04:26)
[2017-06-19] MEDS: APIXABAN 5 MG TABLET PO SCH (04:28)
[2017-06-19 08:00] VITALS: BP 141/85; PULSE 78; RESP 16; TEMP 97.1; O2SAT 98
[2017-06-19] MEDS: LACTULOSE SYRUP 20 GM/30 ML CUP PO SCH ×2 (09:00→12:21)
[2017-06-19] MEDS: POLYETHYLENE GLYCOL 17 GM PKG PO SCH (09:00)
[2017-06-19 09:30] VITALS: PULSE 74
[2017-06-19] MEDS: SODIUM CHLORIDE 0.9% FLUSH 10 ML FLUSH IV FLUSH SCH (10:40)
[2017-06-19] MEDS: FLUoxetine HCL 10 MG CAP PO SCH (10:40)
[2017-06-19] MEDS: DOCUSATE SODIUM 50 MG/SENNA 8.6 MG TAB PO SCH (10:41)
[2017-06-19] MEDS ORDERED: FLUO10CA4 PO (11:59)
[2017-06-19] MEDS ORDERED: HYDR-3583 PO ×2 (11:59→12:24)
[2017-06-19] MEDS ORDERED: SENN1TAB PO (11:59)
[2017-06-19] MEDS ORDERED: POLY17S PO (11:59)
[2017-06-19] MEDS ORDERED: MORP4INJ3 IV PUSH (11:59)
[2017-06-19 12:00] VITALS: BP 141/86; PULSE 60; RESP 16; TEMP 97.4; O2SAT 98
[2017-06-19] MEDS ORDERED: CEFT2INJ2 IV (12:03)
--- NOTE | 2017-06-19 12:08 | HHI.DCPOC ---
Discharge Care Plan Diagnosis: (1) Chronic osteomyelitis involving left ankle and foot Goals to Promote Your Health * To prevent worsening of your condition and complications, continue to follow with your primary care physician and stay at your shelter facility until safe to leave. Directions to Meet Your Goals Take your medications as prescribed Follow your dietary instruction Follow activity as directed Keep your appointments as scheduled Take your immunizations and boosters as scheduled If your symptoms worsen call your PCP, if no PCP go to Urgent Care Center or Emergency Room Smoking is Dangerous to Your Health. Avoid second hand smoke Call the 24-hour hour crisis hotline for domestic abuse at Ismael Abrams MD R2 Jun 19, 2017 12:08
--- NOTE | 2017-06-19 13:58 | HHI.FPPN ---
Subjective Remarks Patient is doing well today. No complaints. Is ready to go home today. (Zenaida Cunha MD R1) Objective Vitals Vital Signs Date Time Temp Pulse Resp B/P (MAP) Pulse Ox O2 Delivery O2 Flow Rate FiO2 06/19/17 12:00 97.4 60 16 141/86 (104) 98 06/19/17 09:30 74 06/19/17 08:00 97.1 78 16 141/85 (103) 98 06/19/17 04:31 18 06/19/17 04:13 97.0 82 18 135/84 (101) 98 06/19/17 02:41 18 06/19/17 00:12 97.7 82 18 109/63 (78) 96 06/18/17 21:43 69 06/18/17 20:29 97.9 81 20 134/82 (99) 98 06/18/17 16:00 97.0 74 17 127/77 (94) 99 I/O 06/18/17 06/18/17 06/18/17 06/19/17 06/19/17 06/19/17 07:00 15:00 23:00 07:00 15:00 23:00 Intake Total 240 ml 885 ml 760 ml Output Total 1750 ml 1500 ml Balance -1510 ml 885 ml -740 ml Intake Oral 240 ml 785 ml 760 ml IV Total 100 ml Output Urine Total 1750 ml 1500 ml # Bowel Movements 0 (Zenaida Cunha MD R1) Result Diagram: 06/18/17 1851 06/15/17 0449 Objective Remarks GENERAL: male, lying in bed in no obvious distress. SKIN: Left lower extremity wrapped, no drainage, is clean dry and intact. CARDIOVASCULAR: Regular rate and rhythm without murmurs, gallops, or rubs. RESPIRATORY: CTAB GASTROINTESTINAL: Abdomen soft, non-tender, nondistended. MUSCULOSKELETAL: Able to move toes of left foot. Motor grossly normal. NEUROLOGICAL: Awake and alert. Procedures Patient is POD 8 s/p CINDY with I&D and placement of Abx in space around left ankle and tibia (on 06/09) (Zenaida Cunha MD R1) A/P Assessment and Plan Patient is a 52 year old male POD #10 who presented with acute on chronic osteomyelitis with abscess of left lower extremity. 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 Given his insurance and homelessness, it was planned for patient to continue hospital treatment until 06/20 to complete first 12 days of treatment; afterwards, can complete rest of treatment at SNF starting 06/21. Spoke with case management today. [facility] will accept patient today. PICC was ordered and infusion care plan for Abx was discussed with infectious disease. D/C after PICC placement. (Zenaida Cunha MD R1) Attending Attestation Patient seen and examined. Case reviewed and discussed with the resident team. Agree with plan of care as discussed with me and documented in the resident note. Agree with above except midline access instead of PICC to be done prior to discharge. Anticipate d/c today for nursing home antibiotics in SNF/rehab setting. (Sharon Salazar MD) Problem List: (1) Chronic osteomyelitis ICD Codes: M86.60 - Other chronic osteomyelitis, unspecified site Status: Chronic Plan: POD #10. Left Leg HW infection with osteomyelitis s/p CINDY with I&D and Abx spacer placement. Intraoperative Vancomycin IV and Gentamicin irrigation at operative site (06/09). Wound VAC removed today 06/16 Dressing changes per ortho: Bacitracin and Adaptic over open wounds, Xeroform over surgical wounds and wet-to-dry dressings over open wound of lateral ankle Continue IV antibiotics per ID (Infectious disease consult placed for chronic osteomyelitis and possibly infected hardware): - Ceftriaxone 2 g IV every 24 hours (06/07-present), Day #12 (2) Left leg cellulitis ICD Codes: L03.116 - Cellulitis of left lower limb Status: Acute Plan: Likely acute on chronic osteomyelitis with abscess; ID consulted - IV antibiotics as above, per ID - continue current pain regimen Pain management as below: - Acetaminophen 650 mg PO q6hr PRN Fever and Pain 1-2 - [place] 10-325 mg PO q3hr PRN Pain 3-5 - 2x [place] 10-325 mg PO q4hr PRN Pain 6-10 - Morphine 4 mg IV Push q3hr PRN Breakthrough Pain (3) Depression ICD Codes: F32.9 - Major depressive disorder, single episode, unspecified Status: Chronic Plan: Prozac 10 mg po daily (4) Hx of deep venous thrombosis ICD Codes: Z86.718 - Personal history of other venous thrombosis and embolism Status: Chronic Plan: -Cont Eliquis (5) Tobacco abuse ICD Codes: Z72.0 - Tobacco use Status: Chronic Plan: Hx of 1 pack/day x 6 years -Nicotine 14 mg Patch. (6) Fluid, Electrolyte, Nutrition and Prophylaxis Status: Chronic Plan: Fluids: none Electrolytes: Monitor and replete as necessary. Nutrition: Regular diet Prophylaxis: * GI prophylaxis not indicated at this time. * Patient receiving therapeutic Eliquis. (Zenaida Cunha MD R1) Zenaida Cunha MD R1 Jun 19, 2017 13:58 Sharon Salazar MD Jun 19, 2017 14:16
[2017-06-19 15:00] VITALS: BP 112/60; PULSE 75; RESP 16; TEMP 97.7; O2SAT 98
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
== END 2017-06-19 15:13 | DRG 492 ==
LOC: NEPC 18:35 → NEDA 20:40 → N07A 23:09
PROVIDERS: ADMIT Family Medicine; ATTEND Family Medicine
PROC: 0HBLXZZ Excision of Left Lower Leg Skin, External Approach (ICD-10-PCS; 2017-06-09)
PROC: 0QPM04Z Removal of Internal Fixation Device from Left Tarsal, Open Approach (ICD-10-PCS; 2017-06-09)
PROC: 3E0V329 Introduction of Other Anti-infective into Bones, Percutaneous Approach (ICD-10-PCS; 2017-06-09)
PROC: 0QBH0ZZ Excision of Left Tibia, Open Approach (ICD-10-PCS; principal; 2017-06-09 12:30)
PROC: 05H633Z Insertion of Infusion Device into Left Subclavian Vein, Percutaneous Approach (ICD-10-PCS; 2017-06-19)
PROC: B517ZZA Fluoroscopy of Left Subclavian Vein, Guidance (ICD-10-PCS; 2017-06-19)
DX: T84.623A Infection and inflammatory reaction due to internal fixation device of left tibia, initial encounter (principal); R65.20 Severe sepsis without septic shock; M86.672 Other chronic osteomyelitis, left ankle and foot; F17.210 Nicotine dependence, cigarettes, uncomplicated; Z86.718 Personal history of other venous thrombosis and embolism; Z59.0 Homelessness; Z91.19 Patient's noncompliance with other medical treatment and regimen; Z91.14 Patient's other noncompliance with medication regimen; Z86.14 Personal history of Methicillin resistant Staphylococcus aureus infection; F32.9 Major depressive disorder, single episode, unspecified; I10 Essential (primary) hypertension; K59.00 Constipation, unspecified; Z66 Do not resuscitate
CPT/HCPCS: 36569; 71010; 73590; 76000; 76937; 80048; 80053; 80307; 81001; 82550; 82552; 82948; 83605; 84484; 85025; 85027; 85610; 85730; 87015; 87040; 87070; 87102; 87116; 87205; 87206; 93005; 93970; 94150; 96365; 96367; 96375; C1713; J0131; J0696; J1100; J1170; J1580; J2250; J2270; J2405; J2543; J2710; J3010; J3260; J3370; J7030; J7050; J7120; Q0163